=== PATIENT | female | born 1970 | race Caucasian/White ===

== ENCOUNTER 2016-10-31 19:32 | Emergency (ER) | payer OTHER ==
[~2016-10-31] VITALS: Ht 157.5 cm; Wt 102.6 kg
[~2016-10-31 19:32] MED LIST: ALPR-411 PO; CLON1TAB3 PO; ESCI10TA17 PO; ESOM20CA PO; OXYC1TAB3 PO; QUET1TAB30 PO; ROSU40TA PO; SENNTAB23 PO; TRAZ50TA35 PO
[2016-10-31 19:47] VITALS: TEMP 36.8; Ht 157.5 cm; Wt 102.6 kg
[2016-10-31] MEDS ORDERED: TRAZ1TAB5 PO (20:46)
[2016-10-31] MEDS ORDERED: LXP10 PO (20:46)
[2016-10-31] MEDS ORDERED: SRQ25 PO (20:46)
[2016-10-31] MEDS ORDERED: OXYC-164 PO (20:46)
[2016-10-31] MEDS ORDERED: KLN1X PO (20:46)
[2016-10-31] MEDS ORDERED: ALPR-411 PO (20:46)
[2016-10-31] MEDS ORDERED: POLY335019 PO (20:49)
[2016-10-31] MEDS ORDERED: HYDROmorphone INJ 1 MG/ML SYR IV STA ×2 (20:50→22:33)
--- NOTE | 2016-10-31 20:53 | EMERGENCY ROOM VISIT NOTE ---
History First contact with patient: 19:48 Chief Complaint: ABDOMINAL PAIN Stated Complaint: AB PAIN, FALL R HIP PAIN & LEG PAIN Nursing Triage Summary: pt arrived als from home reported abdominal pain for ten days n/d/v pt states she also fell down the steps injuring right hip and lower leg pain pt hx of chronic migrains recent endo treated for infection History of Present Illness The patient is a 46 year old female who presents to the Emergency Room with complaints of severe abdominal pain over the last 10 days, with diarrhea over 10 days as well. She reports she had gastric bypass in the past and since then has been deficient in ferritin and receives IV infusions of it as well. She reports the pain has gotten so bad over the last few days she can barely walk. She denies any vomiting or chest pain. She reports she had an EGD with Dr. Wong in the last few months and was found to have gastric ulcers. She reports she also had an infection found on EGD (likely H. pylori) for which she was on antibiotics for which she finished a few months ago. On further review, she reported she is on a taper program with Dr. Freeman for her narcotic use. She did report sometimes she takes more than she should be for pain, and sometimes take less. She reports overall her program is 4 tablets of oxycodone per day, which should decrease by 1 every month until stopped. Review of Systems See HPI for pertinent positives & negatives. A total of 10 systems reviewed and were otherwise negative. Past Medical/Surgical History Medical Problems: (1) Anemia (2) Anxiety (3) Benign hypertension (4) section (5) Depression (6) Disorder of gallbladder (7) gastric bypass (8) Heart disease (9) History of endoscopy (10) MIGRAINE UNSPECIFIED W/O INTRACT MGRN W/O STATUS MIGRAINOSUS (11) Panic disorder (12) PSVT (paroxysmal supraventricular tachycardia) (13) stomach band (14) stomach problems (15) urinary problems Surgical Problems: (1) History of colonoscopy Family History Patient reports no known family medical history. Social History Smoking Status: Former Smoker Alcohol Use: none Drug Use: none Marital Status: Housing Status: lives with family Occupation Status: unemployed Current/Historical Medications Scheduled Alprazolam (Alprazolam), 0.5 MG PO QD@1200 Clonazepam (Clonazepam), 0.5 MG PO HS Escitalopram Oxalate (Escitalopram Oxalate), 10 MG PO DAILY Esomeprazole Magnesium (Nexium), 40 MG PO QAM Quetiapine Fumarate (Quetiapine Fumarate), 25 MG PO BID Rosuvastatin Calcium (Crestor), 40 MG PO DAILY Scheduled PRN Oxycodone Hcl (Oxycodone Hcl), 10 MG PO Q6H PRN for Pain Polyethylene Glycol 3350 (Miralax), 17 GM PO DAILY PRN for Constipation Trazodone Hcl (Desyrel), 50 MG PO HS PRN for Sleep Allergies Coded Allergies: Sucralfate (Verified Adverse Reaction, Unknown, Eye irritation., 01/31/16) Reported by PT. Physical Exam Vital Signs Date Time Temp Pulse Resp B/P Pulse Ox O2 Delivery O2 Flow Rate FiO2 11/01/16 00:28 78 21 130/68 96 11/01/16 00:03 81 20 95 10/31/16 23:58 114/61 10/31/16 23:49 142/70 10/31/16 23:12 79 21 94 10/31/16 23:07 76 20 94 10/31/16 22:37 90 17 95 10/31/16 22:07 88 20 96 10/31/16 22:02 92 25 96 10/31/16 21:50 89 10/31/16 21:06 99 Room Air 10/31/16 21:04 130/79 10/31/16 19:47 36.8 81 18 132/88 99 Room Air Physical Exam GENERAL: Awake, alert, well-appearing, in no acute distress HENT: Normocephalic, atraumatic. Oropharynx unremarkable. EYES: Normal conjunctiva. Sclera non-icteric. NECK: Supple. No nuchal rigidity. FROM. No JVD. RESPIRATORY: Clear to auscultation. CARDIAC: Regular rate, normal rhythm. Extremities warm and well perfused. Pulses equal. ABDOMEN: Soft, distended. Tenderness diffusely, more in epigastrium. No rebound or guarding. No masses. RECTAL: Deferred. MUSCULOSKELETAL: Chest examination reveals no tenderness. The back is symmetrical on inspection without obvious abnormality. There is no CVA tenderness to palpation. No joint edema. LOWER EXTREMITIES: Calves are equal size bilaterally and non-tender. No edema. No discoloration. NEURO: Normal sensorium. No sensory or motor deficits noted. SKIN: No rash or jaundice noted. Medical Decision & Procedures Laboratory Results 10/31/16 21:00 Red Blood Count 4.27, Mean Corpuscular Volume 83.4, Mean Corpuscular Hemoglobin 27.9, Mean Corpuscular Hemoglobin Concent 33.4, Mean Platelet Volume 10.4, Neutrophils (%) (Auto) 42.1, Lymphocytes (%) (Auto) 46.6, Monocytes (%) (Auto) 9.9, Eosinophils (%) (Auto) 1.0, Basophils (%) (Auto) 0.3, Neutrophils # (Auto) 2.86, Lymphocytes # (Auto) 3.17, Monocytes # (Auto) 0.67, Eosinophils # (Auto) 0.07, Basophils # (Auto) 0.02 10/31/16 21:00 Test 10/31/16 00:00 10/31/16 21:00 Influenza Type A Antigen Neg for Influ A (NEG) Influenza Type B Antigen Neg for Influ B (NEG) White Blood Count 6.80 K/uL (4.8-10.8) Red Blood Count 4.27 M/uL (4.2-5.4) Hemoglobin 11.9 g/dL (12.0-16.0) Hematocrit 35.6 % (37-47) Mean Corpuscular Volume 83.4 fL (80-100) Mean Corpuscular Hemoglobin 27.9 pg (25-34) Mean Corpuscular Hemoglobin Concent 33.4 g/dl (32-36) Platelet Count 245 K/uL (130-400) Mean Platelet Volume 10.4 fL (7.4-10.4) Neutrophils (%) (Auto) 42.1 % Lymphocytes (%) (Auto) 46.6 % Monocytes (%) (Auto) 9.9 % Eosinophils (%) (Auto) 1.0 % Basophils (%) (Auto) 0.3 % Neutrophils # (Auto) 2.86 K/uL (1.4-6.5) Lymphocytes # (Auto) 3.17 K/uL (1.2-3.4) Monocytes # (Auto) 0.67 K/uL (0.11-0.59) Eosinophils # (Auto) 0.07 K/uL (0-0.5) Basophils # (Auto) 0.02 K/uL (0-0.2) RDW Standard Deviation 50.5 fL (36.4-46.3) RDW Coefficient of Variation 16.7 % (11.5-14.5) Immature Granulocyte % (Auto) 0.1 % Immature Granulocyte # (Auto) 0.01 K/uL (0.00-0.02) Anion Gap 9.0 mmol/L (3-11) Est Creatinine Clear Calc Drug Dose 113.1 ml/min Estimated GFR () 120.1 Estimated GFR (Non- 103.7 BUN/Creatinine Ratio 10.0 (10-20) Calcium Level 8.8 mg/dl (8.5-10.1) Phosphorus Level 2.9 mg/dl (2.5-4.9) Magnesium Level 2.2 mg/dl (1.8-2.4) Total Bilirubin 0.3 mg/dl (0.2-1) Aspartate Amino Transf (AST/SGOT) 13 U/L (15-37) Alanine Aminotransferase (ALT/SGPT) 14 U/L (12-78) Alkaline Phosphatase 54 U/L (45-117) Total Protein 7.3 gm/dl (6.4-8.2) Albumin 3.3 gm/dl (3.4-5.0) Globulin 4.0 gm/dl (2.5-4.0) Albumin/Globulin Ratio 0.8 (0.9-2) Lipase 105 U/L (73-393) Thyroid Stimulating Hormone (TSH) 2.660 uIu/ml (0.300-4.500) Medications Administered Medications (Trade) Dose Ordered Sig/Beth Route Start Time Stop Time Status Last Admin Dose Admin Hydromorphone HCl (Dilaudid Inj) 1 mg NOW STAT IV 10/31/16 20:50 10/31/16 20:51 DC 10/31/16 21:02 1 MG Hydromorphone HCl (Dilaudid Inj) 1 mg NOW STAT IV 10/31/16 22:33 10/31/16 22:34 DC 10/31/16 22:[address] ABDOMEN PELVIS IMPRESSION: 1. 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 There is mild thickening and surrounding fat stranding related to the gastrojejunostomy anastomosis. Consider follow-up endoscopy for further evaluation. 2. Mild mesenteric lymphadenopathy which could be reactive. 3. Bilateral lower lobe consolidation which may represent atelectasis. 4. A 2 cm left ovarian lesion/cyst. This is similar to the prior study. If the patient is postmenopausal considered to a 2 to 3 month pelvic ultrasound follow-up to ensure resolution. Electronically signed by: Fred Zamora M.D. 11/01/2016 7:30 AM ED Course 1951: I evaluated the patient in room B5. v I then discussed my findings with the attending. The patient was adamant about receiving pain medications prior to any investigations. She was given 1mg of IV dilaudid eventually. 2102: The patient requested a further 2mg IV dose of dilaudid. This was not given. She drank contrast in preparation for CT scan. 2232: She reported severe pain. My attending ordered Dilaudid Inj 1 mg IV 22:55: I signed out the patient case to Dr Foley, as my shift had ended. Please refer to his note for the final disposition. On review, the patient was discharged in good condition that night. Medical Decision 46 yo F s/p gastric bypass surgery with chronic abdominal pain and considerable opioid use - differential includes: bowel obstruction, appendicitis, lymphadenitis, ovarian torsion, or constipation. The patient had an IV placed and labs drawn. Her labs were unremarkable. She complained of severe diffuse pain the entire time she was in the hospital, and reported she usually takes higher doses of narcotics than what we were giving her. I told her multiples times opioids are dangerous in higher amounts and I did not agree with giving her the doses requested. Her CT scan was also unremarkable. She was discharged home in good condition. She should follow up with her PCP Dr. Valdes and Dr. Freeman to review her opioid use. [place] Drug [place] Search Results: patient reviewed within database Drug Monitoring Findings: Patient has received multiple prescriptions from 7 prescribers. Most recently received 60 tablets of oxycodone 10mg 9 days ago Impression Primary Impression: Abdominal pain Departure Information Referrals Cal Valdes DO (PCP) Patient Instructions My [facility] [address] Resident Tracking Resident Involvement: Resident Care Provided Care Provided: Adult ED
[2016-10-31 21:06] VITALS: O2SAT 99
[2016-10-31 21:19] LABS: BASO % 0.3 %; BASO ABS # 0.02 K/uL (0-0.2); COMPLETE YES; HEMATOCRIT 35.6 % (37-47); IG% 0.1 %; LYMPH % 46.6 %; LYMPH ABS # 3.17 K/uL (1.2-3.4); MEAN CELL VOLUME 83.4 fL (80-100); MEAN CORPUSCULAR HEMOGLOBIN 27.9 pg (25-34); MEAN CORPUSCULAR HGB CONC 33.4 g/dl (32-36); MEAN PLATELET VOLUME 10.4 fL (7.4-10.4); MONO % 9.9 %; NEUT % 42.1 %; PLATELET COUNT 245 K/uL (130-400); RED BLOOD COUNT 4.27 M/uL (4.2-5.4)
[2016-10-31 21:39] LABS: CALCIUM 8.8 mg/dl (8.5-10.1); CREATININE 0.69 mg/dl (0.60-1.20); MAGNESIUM 2.2 mg/dl (1.8-2.4); POTASSIUM 3.9 mmol/L (3.5-5.1)
[2016-10-31 21:49] LABS: ALB/GLOB RATIO 0.8 (0.9-2); PHOSPHORUS 2.9 mg/dl (2.5-4.9); THYROID STIMULATING HORMONE 2.66 uIu/ml (0.300-4.500)
[2016-10-31] MEDS ORDERED: OPTIRAY 320 IV PRN (22:15)
[2016-11-01 00:28] VITALS: BP 130/68; PULSE 78; O2SAT 96
--- NOTE | 2016-11-01 00:35 | EMERGENCY ROOM VISIT NOTE ---
History Report prepared by Jerri: Patricia Coleman Under the Supervision of: Dr. Wei Gore M.D. First contact with patient: 19:48 Chief Complaint: ABDOMINAL PAIN Stated Complaint: AB PAIN, FALL R HIP PAIN & LEG PAIN Nursing Triage Summary: pt arrived als from home reported abdominal pain for ten days n/d/v pt states she also fell down the steps injuring right hip and lower leg pain pt hx of chronic migrains recent endo treated for infection History of Present Illness The patient is a 46 year old female who presents to the Emergency Room with complaints of worsening central upper abdominal pain that started 10 days ago. The patient came to the ED via ambulance. She tried to relieve the pain with oxycodone and Tylenol, but they offered her minimal relief. She is also experiencing diarrhea. The patient had an EGD done with Dr. Ureña recently, which revealed an ulcer. She was put on antibiotics for an unspecified infection. Additionally, the patient states that she slipped on the steps and hit her right leg. She did not experience LOC. The patient adds that she has a history of ferritin deficiency, so she gets transfusions for that. The patient also has a history of gastric bypass. Pt denies LOC, headache, fevers, chills , diaphoresis, visual changes, neck pain, chest pain, breathing difficulties, nausea, vomiting, back pain, melena, hematochezia, urinary symptoms, numbness, weakness, lymphadenopathy, rash, or other complaints. Source of History: patient Onset: 10 days ago Position: abdomen (central upper) Timing: worsening Associated Symptoms: + diarrhea Note: right leg pain Review of Systems See HPI for pertinent positives and negatives. A total of ten systems were reviewed and were otherwise negative. Past Medical & Surgical Medical Problems: (1) Anemia (2) Anxiety (3) Benign hypertension (4) section (5) Depression (6) Disorder of gallbladder (7) gastric bypass (8) Heart disease (9) History of endoscopy (10) MIGRAINE UNSPECIFIED W/O INTRACT MGRN W/O STATUS MIGRAINOSUS (11) Panic disorder (12) PSVT (paroxysmal supraventricular tachycardia) (13) stomach band (14) stomach problems (15) urinary problems Surgical Problems: (1) History of colonoscopy Family History Patient reports no known family medical history. Social History Smoking Status: Former Smoker Alcohol Use: none Drug Use: none Marital Status: Housing Status: lives with family Occupation Status: unemployed Current/Historical Medications Scheduled Alprazolam (Alprazolam), 0.5 MG PO QD@1200 Clonazepam (Clonazepam), 0.5 MG PO HS Escitalopram Oxalate (Escitalopram Oxalate), 10 MG PO DAILY Esomeprazole Magnesium (Nexium), 40 MG PO QAM Quetiapine Fumarate (Quetiapine Fumarate), 25 MG PO BID Rosuvastatin Calcium (Crestor), 40 MG PO DAILY Scheduled PRN Oxycodone Hcl (Oxycodone Hcl), 10 MG PO Q6H PRN for Pain Polyethylene Glycol 3350 (Miralax), 17 GM PO DAILY PRN for Constipation Trazodone Hcl (Desyrel), 50 MG PO HS PRN for Sleep Allergies Coded Allergies: Sucralfate (Verified Adverse Reaction, Unknown, Eye irritation., 01/31/16) Reported by PT. Physical Exam Vital Signs Date Time Temp Pulse Resp B/P Pulse Ox O2 Delivery O2 Flow Rate FiO2 10/31/16 23:58 114/61 10/31/16 23:49 142/70 10/31/16 23:12 79 21 94 10/31/16 23:07 76 20 94 10/31/16 22:37 90 17 95 10/31/16 22:07 88 20 96 10/31/16 22:02 92 25 96 10/31/16 21:50 89 10/31/16 21:06 99 Room Air 10/31/16 21:04 130/79 10/31/16 19:47 36.8 81 18 132/88 99 Room Air Physical Exam GENERAL: Awake, alert, tired-appearing, in no distress HENT: Normocephalic, atraumatic. Oropharynx unremarkable. EYES: Normal conjunctiva. Sclera non-icteric. NECK: Supple. No nuchal rigidity. FROM. No JVD. RESPIRATORY: Clear to auscultation. CARDIAC: Regular rate, normal rhythm. Extremities warm and well perfused. Pulses equal. ABDOMEN: Soft, non-distended. Midabdominal tenderness to palpation, mostly in the epigastric region with guarding. No rebound. No masses. RECTAL: Deferred. MUSCULOSKELETAL: Chest examination reveals no tenderness. The back is symmetrical on inspection without obvious abnormality. There is no CVA tenderness to palpation. No joint edema. LOWER EXTREMITIES: Calves are equal size bilaterally. Mild right lower leg tenderness. No edema. No discoloration. NEURO: Normal sensorium. No sensory or motor deficits noted. SKIN: No rash or jaundice noted. Medical Decision & Procedures Laboratory Results 10/31/16 21:00 Red Blood Count 4.27, Mean Corpuscular Volume 83.4, Mean Corpuscular Hemoglobin 27.9, Mean Corpuscular Hemoglobin Concent 33.4, Mean Platelet Volume 10.4, Neutrophils (%) (Auto) 42.1, Lymphocytes (%) (Auto) 46.6, Monocytes (%) (Auto) 9.9, Eosinophils (%) (Auto) 1.0, Basophils (%) (Auto) 0.3, Neutrophils # (Auto) 2.86, Lymphocytes # (Auto) 3.17, Monocytes # (Auto) 0.67, Eosinophils # (Auto) 0.07, Basophils # (Auto) 0.02 10/31/16 21:00 Test 10/31/16 00:00 10/31/16 21:00 Influenza Type A Antigen Neg for Influ A (NEG) Influenza Type B Antigen Neg for Influ B (NEG) White Blood Count 6.80 K/uL (4.8-10.8) Red Blood Count 4.27 M/uL (4.2-5.4) Hemoglobin 11.9 g/dL (12.0-16.0) Hematocrit 35.6 % (37-47) Mean Corpuscular Volume 83.4 fL (80-100) Mean Corpuscular Hemoglobin 27.9 pg (25-34) Mean Corpuscular Hemoglobin Concent 33.4 g/dl (32-36) Platelet Count 245 K/uL (130-400) Mean Platelet Volume 10.4 fL (7.4-10.4) Neutrophils (%) (Auto) 42.1 % Lymphocytes (%) (Auto) 46.6 % Monocytes (%) (Auto) 9.9 % Eosinophils (%) (Auto) 1.0 % Basophils (%) (Auto) 0.3 % Neutrophils # (Auto) 2.86 K/uL (1.4-6.5) Lymphocytes # (Auto) 3.17 K/uL (1.2-3.4) Monocytes # (Auto) 0.67 K/uL (0.11-0.59) Eosinophils # (Auto) 0.07 K/uL (0-0.5) Basophils # (Auto) 0.02 K/uL (0-0.2) RDW Standard Deviation 50.5 fL (36.4-46.3) RDW Coefficient of Variation 16.7 % (11.5-14.5) Immature Granulocyte % (Auto) 0.1 % Immature Granulocyte # (Auto) 0.01 K/uL (0.00-0.02) Anion Gap 9.0 mmol/L (3-11) Est Creatinine Clear Calc Drug Dose 113.1 ml/min Estimated GFR () 120.1 Estimated GFR (Non- 103.7 BUN/Creatinine Ratio 10.0 (10-20) Calcium Level 8.8 mg/dl (8.5-10.1) Phosphorus Level 2.9 mg/dl (2.5-4.9) Magnesium Level 2.2 mg/dl (1.8-2.4) Total Bilirubin 0.3 mg/dl (0.2-1) Aspartate Amino Transf (AST/SGOT) 13 U/L (15-37) Alanine Aminotransferase (ALT/SGPT) 14 U/L (12-78) Alkaline Phosphatase 54 U/L (45-117) Total Protein 7.3 gm/dl (6.4-8.2) Albumin 3.3 gm/dl (3.4-5.0) Globulin 4.0 gm/dl (2.5-4.0) Albumin/Globulin Ratio 0.8 (0.9-2) Lipase 105 U/L (73-393) Thyroid Stimulating Hormone (TSH) 2.660 uIu/ml (0.300-4.500) Laboratory results reviewed by me Medications Administered Medications (Trade) Dose Ordered Sig/Beth Route Start Time Stop Time Status Last Admin Dose Admin Hydromorphone HCl (Dilaudid Inj) 1 mg NOW STAT IV 10/31/16 20:50 10/31/16 20:51 DC 10/31/16 21:02 1 MG Hydromorphone HCl (Dilaudid Inj) 1 mg NOW STAT IV 10/31/16 22:33 10/31/16 22:34 DC 10/31/16 22:38 1 MG ECG Indication: abdominal pain Rate (beats per minute): 82 Rhythm: normal sinus Findings: no acute ischemic change, no ectopy ED Course 1951: The patient was evaluated by the medical care manager, Dr. Valerie Skinner. We discussed her findings and potential treatment plans. 2102: The patient was evaluated in room B5. A complete history and physical exam was performed. 2231: The nurse informed me that the patient wants pain medicine. 2232: Ordered Dilaudid Inj 1 mg IV Medical Decision Triage Nursing notes reviewed. The patient's presentation and history were concerning for abdominal pain. Etiologies such as complication of gastric bypass, appendicitis, diverticulitis , obstruction, inflammatory bowel disease, renal colic, PUD, biliary pathology , pancreatitis, mesenteric ischemia, aortic pathology, infections, genitourinary , UTI, perforated viscus, as well as others were entertained. The patient was evaluated. She has epigastric pain. She repeatedly requested narcotic analgesia. She requested high-dose Dilaudid. The patient does have multiple prescriptions for controlled substances noted the prescription drug monitoring program. She states that she is on a program to taper from her narcotics from her pain management doctor. The patient was given 1 mg of Dilaudid 2 spaced out over several hours while she was prepping for CT imaging. She did request 2 mg but this was not done. On further discussion with Dr. Valerie Skinner the patient did admit to occasionally taking more than her pain management prescribed taper. She clearly has a significant tolerance to narcotics. Her CBC, chemistry panel, LFTs, lipase, were unremarkable. ECG was unremarkable. CT imaging was performed. This does not reveal any significant abnormalities of her gastric bypass. Mesenteric adenitis was suggested. The patient has had some diarrhea along with this discomfort. Her issues may be related to the mesenteric adenitis. I did ask for her to increase her Nexium to 40 mg twice daily. She is already using Gaviscon. The patient did note using some ibuprofen when she had dental work done. I strongly advised patient not to use any NSAIDs given her gastric bypass status. The patient is doing much better at this point time. She will follow-up closely with her GI specialist, Dr. Ureña. The patient did notify family history of lymphoma. Her blood work was unremarkable however I will have her follow-up with her oncologist, Dr. Barrera. If She worsens in any way she will be back. I gave my usual and customary discussion regarding this issue. The patient was seen and examined with Dr. Valerie Skinner, resident physician. We discussed the case and treatments ordered, reviewed the results, and determine the disposition. Please refer to the resident's note for additional details. I have been directly involved with the management and disposition as well as independently evaluated the patient as documented in this note. By the evaluation outlined above other emergent etiologies such as those listed in the differential, as well as others, were deemed relatively unlikely. The patient and were informed about the findings as listed above. All questions were answered and they were pleased with the treatment. Return instructions were outlined and the patient was discharged in stable condition. The patient was referred to her for follow-up this week for a recheck of the current condition. The chart was completed utilizing [employer] Speech voice recognition software. Grammatical errors, random word insertions, pronoun errors, and incomplete sentences are an occasional consequence of this system due to software limitations, ambient noise, and hardware issues. Any formal questions or concerns about the content, text, or information contained within the body of this dictation should be directly addressed to the physician for clarification. [place] Results: patient reviewed within database, see additional documentation Drug Monitoring Findings: Patient has received multiple scrips and numerous prescriptions over the last 12 months. Impression Primary Impression: Epigastric abdominal pain Additional Impression: Mesenteric adenitis Scribe Attestation The scribe's documentation has been prepared under my direction and personally reviewed by me in its entirety. I confirm that the note above accurately reflects all work, treatment, procedures, and medical decision making performed by me. Departure Information Dispostion Home / Self-Care Referrals Cal Valdes DO (PCP) Patient Instructions My [facility] Additional Instructions Diagnoses: 1. Mesenteric adenitis 2. Epigastric abdominal pain DO NOT drive, drink alcohol, operate machinery, or perform dangerous activities today. You were given medications in the ER that can affect your ability to safely function or operate a vehicle. Continue current medications. Increase Nexium to 40 mg twice daily until directed otherwise by Dr. ureña. Acetaminophen(Tylenol) may be used for fever or pain. Use 1000mg every six hours as needed. Avoid using more than 4000mg in a 24 hour period. Rest and drink plenty of fluids as tolerated. Slow sips of water or sports drinks are recommended instead of large amounts all at once. Continue current medications. Once your stomach is settled start with a clear liquid diet (jello, soup broth, etc.) and then advance as tolerated. You should avoid full, heavy meals for about 24 hrs from the time your symptoms resolved. Return to the ER immediately for worsening or persistent abdominal pain, vomiting, fevers, chest pains, difficulty breathing, black or bloody stools, worsening of your condition, or as needed. Follow up with Dr. ureña and Dr. Barrera for a recheck of your current condition. Problem Qualifiers
--- NOTE | 2016-11-01 07:31 | DIAGNOSTIC IMAGING REPORT ---
ABDOMEN AND PELVIS CT WITH IV AND ORAL CONTRAST CT DOSE: 975.75 mGy.cm HISTORY: Hx gastric bypass, epigastric / abdominal pain TECHNIQUE: Multiaxial CT images of the abdomen and pelvis were performed following the use of intravenous and oral contrast. COMPARISON STUDY: Abdomen and pelvis CT 06/17/2014. FINDINGS: Bilateral lower lobe streaky posterior densities. Evidence for prior gastric bypass. There is contrast within the excluded portion of the stomach. Mild thickening and minimal surrounding inflammatory change at the gastrojejunostomy anastomosis. Mildly enlarged central mesenteric lymph nodes. 2 cm hypodense lesion/cyst within the left ovary. This is similar to the prior study. The bladder, uterus, and right ovary are unremarkable. No evidence for bowel obstruction. Normal appendix. The liver, gallbladder, kidneys, spleen, and pancreas are unremarkable. IMPRESSION: 1. 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 There is mild thickening and surrounding fat stranding related to the gastrojejunostomy anastomosis. Consider follow-up endoscopy for further evaluation. 2. Mild mesenteric lymphadenopathy which could be reactive. 3. Bilateral lower lobe consolidation which may represent atelectasis. 4. A 2 cm left ovarian lesion/cyst. This is similar to the prior study. If the patient is postmenopausal considered to a 2 to 3 month pelvic ultrasound follow-up to ensure resolution. Electronically signed by: Fred Zamora M.D. 11/01/2016 7:30 AM Dictated Date/Time: 11/01/2016 7:23 AM
[2016-11-08] MEDS ORDERED: ESCI10TA17 PO (11:58)
[2016-11-08] MEDS ORDERED: CLON0.5T3 PO (11:58)
[2016-11-08] MEDS ORDERED: ALPR-411 PO (11:58)
[2016-11-08] MEDS ORDERED: ALPR1TAB3 PO (11:58)
[2016-11-08] MEDS ORDERED: QUET1TAB32 PO (11:58)
[2016-11-08] MEDS ORDERED: QUET1TAB30 PO (11:58)
[2016-11-08] MEDS ORDERED: TRAZ50TA35 PO ×2 (11:58)
[2016-11-08] MEDS ORDERED: OXYC1TAB3 PO (11:59)
[2016-11-25] MEDS ORDERED: ESOM20CA PO (11:58)
[2016-11-25] MEDS ORDERED: ROSU20TA PO (11:58)
[2017-02-26] MEDS ORDERED: ACET-1256 PO (06:47)
[2017-02-26] MEDS ORDERED: PRT/40 PO (18:53)
== END 2016-11-01 00:45 | disposition home or self-care (01) ==
LOC: EDBD 19:32 → C.EDB 19:34
DX: R10.13 Epigastric pain (principal); I88.0 Nonspecific mesenteric lymphadenitis; Z98.84 Bariatric surgery status; D64.9 Anemia, unspecified; F41.9 Anxiety disorder, unspecified; I10 Essential (primary) hypertension; I51.9 Heart disease, unspecified; G43.909 Migraine, unspecified, not intractable, without status migrainosus; I47.1 Supraventricular tachycardia; Z87.891 Personal history of nicotine dependence; Z79.899 Other long term (current) drug therapy

== ENCOUNTER 2016-11-08 16:17 | Emergency (ER) | payer OTHER ==
[~2016-11-08] VITALS: Ht 162.6 cm; Wt 100.2 kg
[~2016-11-08 16:17] MED LIST changes: +ALPR1TAB3 PO; +CLON0.5T3 PO; -CLON1TAB3 PO; +KLN1X PO; +LXP10 PO; +OXYC-164 PO; +POLY335019 PO; +QUET1TAB32 PO; -SENNTAB23 PO; +SRQ25 PO; +TRAZ1TAB5 PO
[2016-11-08 16:20] VITALS: TEMP 37.2; Ht 162.6 cm; Wt 100.2 kg
[2016-11-08] MEDS ORDERED: SODIUM CHLORIDE 0.9% 1000ML 1,000 ML IV STA (16:50)
[2016-11-08] MEDS ORDERED: HYDROmorphone INJ 1 MG/ML SYR IV STA ×2 (16:50→20:56)
[2016-11-08] MEDS ORDERED: ONDANSETRON INJ 2 MG/ML 2 ML VIAL IV STA (16:50)
[2016-11-08] MEDS ORDERED: GI COCKTAIL PO ONE (17:00)
[2016-11-08] MEDS ORDERED: ALUMINUM/MAGNESIUM SUSP 30 ML UDC ONE (17:18)
[2016-11-08] MEDS ORDERED: LIDOCAINE HCL 2% VISC SOLN 20 ML UDC ONE (17:18)
[2016-11-08 20:18] LABS: HEMATOCRIT 33.7 % (37-47); MEAN CELL VOLUME 82.4 fL (80-100); MEAN CORPUSCULAR HEMOGLOBIN 27.6 pg (25-34); MEAN CORPUSCULAR HGB CONC 33.5 g/dl (32-36); MEAN PLATELET VOLUME 10.7 fL (7.4-10.4); PLATELET COUNT 261 K/uL (130-400); RED BLOOD COUNT 4.09 M/uL (4.2-5.4); WHITE BLOOD COUNT 5.19 K/uL (4.8-10.8)
[2016-11-08 20:35] LABS: CALCIUM 8.2 mg/dl (8.5-10.1); CREATININE 0.66 mg/dl (0.60-1.20); POTASSIUM 3.7 mmol/L (3.5-5.1)
[2016-11-08 20:37] LABS: ALB/GLOB RATIO 0.9 (0.9-2)
[2016-11-08 20:46] LABS: BASO % 0.4 %; BASO ABS # 0.02 K/uL (0-0.2); COMPLETE YES; EOS % 1.2 %; LYMPH % 63.6 %; MONO % 7.9 %; NEUT % 26.9 %
--- NOTE | 2016-11-08 20:58 | EMERGENCY ROOM VISIT NOTE ---
History First contact with patient: 16:25 Chief Complaint: ABDOMINAL PAIN Stated Complaint: STOMACH PAIN Nursing Triage Summary: pt states she has had abd pain x3 weeks. denies vomiting and urinary symptoms. states she "sometimes" has diarrhea. states "they gave me zofran so I don't vomit." states she is scheduled for an endoscopy tomorrow. upon examination pt alert and oriented x4. pt states "I am having a lot of pain." requesting "second shot of diludid. last time they gave me two." rates pain 9/10 mid abdomen. History of Present Illness The patient is a 46 year old female who presents to the Emergency Department by private vehicle with her for evaluation of her epigastric abdominal pain and migraine. The patient has a long-standing history of each of these situations. The patient has a scheduled upper endoscopy tomorrow with Dr. ureña. 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 She has no new symptoms. There is been no fevers or chills. She has been nauseated without vomiting. She denies any blurry vision, no vision, slurred speech, facial droop, unilateral weakness/numbness, chest pain, palpitations, hematochezia, melena, hematuria, or dysuria. She rates her current discomfort as 8/10. Review of Systems A complete 10-point Review of Systems was discussed with the patient, with pertinent positives and negatives listed in the History of Present Illness. All remaining Review of Systems questions can be considered negative unless otherwise specified. Past Medical/Surgical History Medical Problems: (1) Anemia (2) Anxiety (3) Benign hypertension (4) section (5) Depression (6) Disorder of gallbladder (7) gastric bypass (8) Heart disease (9) History of endoscopy (10) MIGRAINE UNSPECIFIED W/O INTRACT MGRN W/O STATUS MIGRAINOSUS (11) Panic disorder (12) PSVT (paroxysmal supraventricular tachycardia) (13) stomach band (14) stomach problems (15) urinary problems Surgical Problems: (1) History of colonoscopy Family History Patient reports no known family medical history. Social History Smoking Status: Current Every Day Smoker Alcohol Use: none Drug Use: none Marital Status: Housing Status: lives with family Occupation Status: unemployed Current/Historical Medications Scheduled Alprazolam (Xanax), 1 MG PO QAM Alprazolam (Xanax), 0.5 MG PO DAILY AT NOON Clonazepam (Klonopin), 0.5 MG PO HS Escitalopram (Lexapro), 10 MG PO QAM Esomeprazole Magnesium (Nexium), 20 MG PO BID Quetiapine Fumarate (Seroquel), 25 MG PO DAILY AFTERNOON Quetiapine Fumarate (Seroquel), 50 MG PO QAM Rosuvastatin Calcium (Crestor), 20 MG PO HS Trazodone Hcl (Trazodone), 50 MG PO HS Scheduled PRN Oxycodone Ir (Roxicodone Ir), 5-20 MG PO Q6H PRN for Pain Trazodone Hcl (Trazodone), 0.25 TAB PO DAILY PRN for PANIC ATTACK Allergies Coded Allergies: Sucralfate (Verified Adverse Reaction, Unknown, Eye irritation., 11/09/16) Reported by PT. Physical Exam Vital Signs Date Time Temp Pulse Resp B/P Pulse Ox O2 Delivery O2 Flow Rate FiO2 11/08/16 21:04 61 18 120/87 95 11/08/16 19:12 67 18 132/69 95 Room Air 11/08/16 16:20 37.2 78 20 135/91 99 Room Air Pain Rating (0-10): 8 Physical Exam VITAL SIGNS - Vital signs and nursing notes were reviewed. GENERAL - 46-year-old female appearing her stated age who is in no acute distress. Communicates well with provider and answers questions appropriately. HEAD - NC/AT. EYES - PERRL with EOMI bilaterally. Sclera anicteric. Palpebral conjunctiva pink and moist with no injection noted. EARS - No deformities of external structures noted on gross examination bilaterally. No pain elicited with palpation of the tragus bilaterally. External auditory canals without discharge or otorrhea. Tympanic membranes pearly maddox without retraction or bulging. NOSE - Midline and without cyanosis. No epistaxis or purulent drainage noted. Septum midline without deviation or septal hematoma noted. MOUTH/OROPHARYNX - Without perioral cyanosis. Buccal mucosa pink and moist and without leukoplakia. Tongue midline with equal elevation of palate bilaterally. No tonsillar hypertrophy, erythema, or exudates noted. Good dentition noted. NECK - Neck with FROM. Supple to palpation. No nuchal rigidity. LUNGS - Chest wall symmetric without accessory muscle use, intercostals retractions, or central cyanosis. Normal vesicular breath sounds CTA B/L. No wheezes, rales, or rhonchi appreciated. CARDIAC - RRR with S1/S2. No murmur, rubs, or gallops appreciated. ABDOMEN - Abdominal contour obese and without pulsations or visible masses. BS normoactive all four quadrants. Mild tenderness to palpation appreciated in the epigastrium. No guarding. no Rebound Tenderness. Negative Rovsing's. Negative Ye's. No palpable masses, hepatosplenomegaly, or ascites noted. EXTREMITIES - No clubbing or peripheral cyanosis. No pretibial edema present. +3 /5 radial and dorsalis pedis pulses palpated throughout. PSYCH - A&Ox3 and cooperates fully with examiner. Pt is very pleasant and interacts well with examiner. Medical Decision & Procedures Laboratory Results 11/08/16 20:06 Red Blood Count 4.09, Mean Corpuscular Volume 82.4, Mean Corpuscular Hemoglobin 27.6, Mean Corpuscular Hemoglobin Concent 33.5, Mean Platelet Volume 10.7, Neutrophils (%) (Auto) 26.9, Lymphocytes (%) (Auto) 63.6, Monocytes (%) (Auto) 7.9, Eosinophils (%) (Auto) 1.2, Basophils (%) (Auto) 0.4, Neutrophils # (Auto) 1.40, Lymphocytes # (Auto) 3.30, Monocytes # (Auto) 0.41, Eosinophils # (Auto) 0.06, Basophils # (Auto) 0.02 11/08/16 20:06 Test 11/08/16 20:06 White Blood Count 5.19 K/uL (4.8-10.8) Red Blood Count 4.09 M/uL (4.2-5.4) Hemoglobin 11.3 g/dL (12.0-16.0) Hematocrit 33.7 % (37-47) Mean Corpuscular Volume 82.4 fL (80-100) Mean Corpuscular Hemoglobin 27.6 pg (25-34) Mean Corpuscular Hemoglobin Concent 33.5 g/dl (32-36) Platelet Count 261 K/uL (130-400) Mean Platelet Volume 10.7 fL (7.4-10.4) Neutrophils (%) (Auto) 26.9 % Lymphocytes (%) (Auto) 63.6 % Monocytes (%) (Auto) 7.9 % Eosinophils (%) (Auto) 1.2 % Basophils (%) (Auto) 0.4 % Neutrophils # (Auto) 1.40 K/uL (1.4-6.5) Lymphocytes # (Auto) 3.30 K/uL (1.2-3.4) Monocytes # (Auto) 0.41 K/uL (0.11-0.59) Eosinophils # (Auto) 0.06 K/uL (0-0.5) Basophils # (Auto) 0.02 K/uL (0-0.2) RDW Standard Deviation 51.0 fL (36.4-46.3) RDW Coefficient of Variation 16.8 % (11.5-14.5) Immature Granulocyte % (Auto) 0.0 % Immature Granulocyte # (Auto) 0.00 K/uL (0.00-0.02) Red Blood Cell Morphology Unremarkable Anion Gap 7.0 mmol/L (3-11) Est Creatinine Clear Calc Drug Dose 121.3 ml/min Estimated GFR () 121.9 Estimated GFR (Non- 105.2 BUN/Creatinine Ratio 8.0 (10-20) Calcium Level 8.2 mg/dl (8.5-10.1) Total Bilirubin 0.3 mg/dl (0.2-1) Aspartate Amino Transf (AST/SGOT) 11 U/L (15-37) Alanine Aminotransferase (ALT/SGPT) 12 U/L (12-78) Alkaline Phosphatase 48 U/L (45-117) Total Protein 6.7 gm/dl (6.4-8.2) Albumin 3.1 gm/dl (3.4-5.0) Globulin 3.6 gm/dl (2.5-4.0) Albumin/Globulin Ratio 0.9 (0.9-2) Medications Administered Medications (Trade) Dose Ordered Sig/Beth Route Start Time Stop Time Status Last Admin Dose Admin Sodium Chloride (Nss 1000ml) 1,000 ml @ 999 mls/hr Q1H1M STAT IV 11/08/16 16:50 11/08/16 17:50 DC 11/08/16 18:10 999 MLS/HR Ondansetron HCl (Zofran Inj) 4 mg NOW STAT IV 11/08/16 16:50 11/08/16 16:53 DC 11/08/16 18:07 4 MG Hydromorphone HCl (Dilaudid Inj) 1 mg NOW STAT IV 11/08/16 16:50 11/08/16 16:53 DC 11/08/16 18:09 1 MG Lidocaine HCl (Viscous Lidocaine 2% Soln) 20 ml STK-MED ONCE .ROUTE 11/08/16 17:18 11/08/16 17:20 DC 11/08/16 17:22 20 ML Al Hydroxide/Mg Hydroxide (Maalox Susp) 30 ml STK-MED ONCE .ROUTE 11/08/16 17:18 11/08/16 17:20 DC 11/08/16 17:23 30 ML Hydromorphone HCl (Dilaudid Inj) 1 mg NOW STAT IV 11/08/16 20:56 11/08/16 20:57 DC 11/08/16 21:03 1 MG ED Course Patient was seen and evaluated by myself. Previous emergency department visit notes were reviewed. Labs were drawn, saline lock in place. The patient was hydrated with a 1000 mL normal saline bolus. She received 1 mg Dilaudid and 4 mg Zofran intravenously for symptoms. She received GI cocktail. Patient was reevaluated and reports feeling somewhat better. Laboratory results demonstrate no acute leukocytosis, worrisome anemia, or bandemia. The patient has no significant electrolyte abnormalities. She was treated with an additional 1 mg Dilaudid and discharged home with the intent for close follow- up tomorrow with her scheduled outpatient upper endoscopy. Medical Decision Given the patient's presentation and stated complaint, I did elect to perform the above-mentioned workup. The patient does have a history of chronic pain issues. 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 She is scheduled for an upper endoscopy tomorrow. Her abdomen is soft and nontender to palpation. I do not feel that imaging studies are necessary at this point. The patient does appear to be in discomfort. Her pain was adequately controlled the emergency setting. Her labs are otherwise unremarkable. She has a scheduled upper endoscopy tomorrow. She will keep this appointment with Dr. ureña. She will return to the emergency department in the setting of any changing or worsening symptoms. Patient discharged home afebrile and in good condition. In the evaluation and treatment of this patient, the following differential diagnoses were considered: Malingering, somatization, gastritis, duodenitis, peptic ulcer disease, bowel perforation, migraine, ACS, IL, intracranial abnormalities, subdural hematoma, subarachnoid hemorrhage, amongst others. Impression Primary Impression: Epigastric abdominal pain Departure Information Dispostion Home / Self-Care Condition GOOD Referrals Cal Valdes DO (PCP) Patient Instructions My [facility] Additional Instructions You have been treated in the Emergency Department your Abdominal Pain. Keep your follow-up appointment for your endoscopy as scheduled. For pain control, you can use the following [id number] medicines (if >12 yo): - Regular strength (325mg/tab) Tylenol (acetaminophen) 2 tabs every 4-6 hours as needed. Do not exceed 12 tablets in a 24 hour period. Avoid taking more than 4 grams (4000 mg) of Tylenol per day. This includes any other sources of acetaminophen you may take on a regular basis. - Regular strength (200 mg/tab) Advil (ibuprofen) 1-2 tabs every 4-6 hours as needed. Do not exceed a dose of 3200 mg per day. Drink plenty of water and stay well hydrated. As with any trip to the Emergency Department, you should follow-up with your Primary Care Provider from today's visit. Return to the emergency department if your symptoms persist despite treatment plan outlined above or if the following symptoms occur: increased fevers, chills , worsening nausea/vomiting, blood in your stool or urine.
[2016-11-08 21:04] VITALS: BP 120/87; PULSE 61; O2SAT 95
[2016-11-25] MEDS ORDERED: ESOM20CA PO (11:58)
[2016-11-25] MEDS ORDERED: ROSU20TA PO (11:58)
[2017-02-26] MEDS ORDERED: ACET-1256 PO (06:47)
[2017-02-26] MEDS ORDERED: PRT/40 PO (18:53)
== END 2016-11-08 21:04 | disposition home or self-care (01) ==
LOC: C.EDB 16:18 → C.EDC 21:04
DX: R10.13 Epigastric pain (principal); Z98.84 Bariatric surgery status; F41.9 Anxiety disorder, unspecified; I10 Essential (primary) hypertension; F32.9 Major depressive disorder, single episode, unspecified; I51.9 Heart disease, unspecified; G43.909 Migraine, unspecified, not intractable, without status migrainosus; I47.1 Supraventricular tachycardia; F17.210 Nicotine dependence, cigarettes, uncomplicated; Z79.899 Other long term (current) drug therapy

== ENCOUNTER → 2016-11-09 | Day surgery (SDC) | payer OTHER ==
[2016-11-08 11:59] VITALS: BMI 32.0
[~2016-11-09] VITALS: Ht 162.6 cm; Wt 86.4 kg
[~2016-11-09] MED LIST changes: +ACET-1256 PO; +ALPR-385 PO; +DSY100 PO; +LIDOCAINE HCL 2% 2 ML VIAL (20MG/ML) ONE; +MIDAZOLAM HCL 1 MG/ML 2ML VIAL ONE; -POLY335019 PO; +PROPOFOL IV EMULSION 10 MG/ML 20 ML VIAL IV ONE; +PRT/40 PO; +QUET5TAB PO; +ROSU20TA PO; -ROSU40TA PO; +SODIUM CHLORIDE 0.9% 500ML 500 ML IV ONE; +SUCR1TAB29 PO
[2016-11-09 11:05] VITALS: Ht 162.6 cm; Wt 86.4 kg
--- NOTE | 2016-11-09 11:47 | Endo History and Physical ---
History & Physical Date of Service: Nov 09, 2016. Chief Complaint: abdominal pain and nausea, hx of gastric bypass Referring Physician: Dr. Valdes History of Present Illness 46 yo female who presents for EGD secondary to abdominal pain, nausea, and history of gastric bypass. Past Medical History Anxiety, High Cholesterol, Hypertension, Depression Past Surgical History Hx Cardiac Surgery: No Hx Internal Defibrillator: No Hx Pacemaker: No Hx Abdominal Surgery: Yes (ABDOMINAL BAND AND REMOVAL,GASTRIC BYPASS, C- SECTION X 2) Hx of Implantable Prosthesis: No Hx Post-Op Nausea and Vomiting: No Hx Cancer Surgery: No Hx Thoracic Surgery: No Hx Orthopedic: No Hx Urinary Tract Surgery: No Family History Polyp Social History Smoking Status: Current Every Day Smoker Hx Substance Use: No (SEE MED REC) Hx Alcohol Use: No Allergies Coded Allergies: Sucralfate (Verified Adverse Reaction, Unknown, Eye irritation., 11/09/16) Reported by PT. Current Medications Reported Home Medications Medications Dose Route/Sig Max Daily Dose Days Date Category Roxicodone Ir (Oxycodone HCl) 5 Mg Tab 5-20 Mg PO Q6H PRN 11/08/16 Reported Nexium (Esomeprazole Magnesium) 20 Mg Capcr 20 Mg PO BID 11/08/16 Reported Crestor (Rosuvastatin Calcium) 20 Mg Tab 20 Mg PO HS 11/08/16 Reported Klonopin (Clonazepam) 0.5 Mg Tab 0.5 Mg PO HS 11/08/16 Reported Trazodone (Trazodone HCl) 50 Mg Tab 50 Mg PO HS 11/08/16 Reported Xanax (Alprazolam) 0.5 Mg Tab 0.5 Mg PO DAILY AT NOON 11/08/16 Reported Lexapro (Escitalopram Oxalate) 10 Mg Tab 10 Mg PO QAM 11/08/16 Reported Trazodone (Trazodone HCl) 50 Mg Tab 0.25 Tab PO DAILY PRN 11/08/16 Reported Seroquel (Quetiapine Fumarate) 50 Mg Tab 50 Mg PO QAM 11/08/16 Reported Seroquel (Quetiapine Fumarate) 25 Mg Tab 25 Mg PO DAILY AFTERNOON 11/08/16 Reported Xanax (Alprazolam) 1 Mg Tab 1 Mg PO QAM 11/08/16 Reported Vital Signs Weight (Kilograms): 86.36 Height (Feet): 5 Height (Inches): 4 Date Time Temp Pulse Resp B/P Pulse Ox O2 Delivery O2 Flow Rate FiO2 11/09/16 11:16 36.7 76 16 140/70 97 Room Air Physical Exam General Appearance: WD/WN, no apparent distress Respiratory/Chest: Auscultation: breath sounds normal Cardiovascular: Heart Auscultation: RRR Abdomen: Bowel Sounds: normal Inspection & Palpation: soft, non-distended, no tenderness, guarding & rebound Assessment and Plan Assessment: 46 yo female who presents for EGD secondary to abdominal pain, nausea, and history of gastric bypass. Plan: Proceed with EGD
--- NOTE | 2016-11-09 12:44 | GI REPORT ---
Procedure Date: 11/09/2016 11:35 AM Procedure: Upper GI endoscopy Indications: Abnormal CT of the GI tract Medicines: Monitored Anesthesia Care Complications: No immediate complications. Estimated Blood Loss: Estimated blood loss: none. Procedure: Pre-Anesthesia Assessment: - Prior to the procedure, a History and Physical was performed, and patient medications and allergies were reviewed. The patient's tolerance of previous anesthesia was also reviewed. The risks and benefits of the procedure and the sedation options and risks were discussed with the patient. All questions were answered, and informed consent was obtained. Prior Anticoagulants: The patient has taken no previous anticoagulant or antiplatelet agents. ASA Grade Assessment: II - A patient with mild systemic disease. After reviewing the risks and benefits, the patient was deemed in satisfactory condition to undergo the procedure. After obtaining informed consent, the endoscope was passed under direct vision. Throughout the procedure, the patient's blood pressure, pulse, and oxygen saturations were monitored continuously. The scope was introduced through the mouth, and advanced to the second part of duodenum. The upper GI endoscopy was accomplished without difficulty. The patient tolerated the procedure well. Findings: The esophagus was normal. Evidence of a Marion-en-Y gastrojejunostomy was found. 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 The gastrojejunal anastomosis was characterized by ulceration. This was traversed. The llwcq-kz-idlavek limb was characterized by healthy appearing mucosa. The uovqjafi-dj-tujjeop limb was not examined as it could not be found. The examined jejunum was normal. Impression: - Normal esophagus. - Marion-en-Y gastrojejunostomy with gastrojejunal anastomosis characterized by ulceration. - Normal examined jejunum. - No specimens collected. Recommendation: - Resume previous diet. - Continue present medications. - Refer to a surgeon. - Return to primary care physician as previously scheduled. Pipo Wong DO 11/09/2016 12:44:05 PM This report has been signed electronically. Note Initiated On: 11/09/2016 11:35 AM I attest to the content of the Intraoperative Record and orders documented therein, exceptions below
--- NOTE | 2016-11-09 12:45 | Discharge Instructions ---
Endoscopy Patient Instructions Date / Procedure(s) Performed Nov 09, 2016. EGD Allergy Information Coded Allergies: Sucralfate (Verified Adverse Reaction, Unknown, Eye irritation., 11/09/16) Reported by PT. Discharge Date / Findings Nov 09, 2016. Gastro-gastric fistula Anastomotic ulcer Medication Instructions OK to resume all medications today as prescribed. Reported Home Medications Medications Dose Route/Sig Max Daily Dose Days Date Category Roxicodone Ir (Oxycodone HCl) 5 Mg Tab 5-20 Mg PO Q6H PRN 11/08/16 Reported Nexium (Esomeprazole Magnesium) 20 Mg Capcr 20 Mg PO BID 11/08/16 Reported Crestor (Rosuvastatin Calcium) 20 Mg Tab 20 Mg PO HS 11/08/16 Reported Klonopin (Clonazepam) 0.5 Mg Tab 0.5 Mg PO HS 11/08/16 Reported Trazodone (Trazodone HCl) 50 Mg Tab 50 Mg PO HS 11/08/16 Reported Xanax (Alprazolam) 0.5 Mg Tab 0.5 Mg PO DAILY AT NOON 11/08/16 Reported Lexapro (Escitalopram Oxalate) 10 Mg Tab 10 Mg PO QAM 11/08/16 Reported Trazodone (Trazodone HCl) 50 Mg Tab 0.25 Tab PO DAILY PRN 11/08/16 Reported Seroquel (Quetiapine Fumarate) 50 Mg Tab 50 Mg PO QAM 11/08/16 Reported Seroquel (Quetiapine Fumarate) 25 Mg Tab 25 Mg PO DAILY AFTERNOON 11/08/16 Reported Xanax (Alprazolam) 1 Mg Tab 1 Mg PO QAM 11/08/16 Reported Provider Instructions Activity Restrictions - No exercising or heavy lifting for 24 hours. - Do not drink alcohol the day of the procedure. - Do not drive a car or operate machinery until the day after the procedure. - Do not make any important decisions or sign important papers in 24 hours after the procedure. Following Day: - Return to full activity which may include returning to work/school. Diet Start your diet with liquids and light foods (jello, soup, juice, toast). Then eat your usual diet if not nauseated. Treatment For Common After Affects For mild abdominal pain, bloating, or excessive gas: - Rest - Eat lightly - Lie on right side Follow-Up Information Follow-up with Dr. Valdes as scheduled Anesthesia Information What You Should Know You have had a procedure that required some medicine to reduce anxiety and discomfort. This treatment is called moderate sedation. After receiving the treatment, you may be sleepy, but you will be able to breathe on your own. The effects of the treatment may last for several hours. Follow these instructions along with Activity/Diet recommendations noted above: * Do NOT do anything where dizziness or clumsiness would be dangerous. * Rest quietly at home today, then you can be up and about tomorrow. * Have a responsible person stay with you the rest of today. * You may have had an I.V. today. If so, you may take the dressing off later today. Recommendations Call your doctor if: * Trouble breathing * Continuous vomiting for more than 24 hours * Temperature above 101 degrees * Severe abdominal pain or bloating * Pain not relieved by pain medicine ordered * There is increased drainage or redness from any incision * A large amount of rectal bleeding greater than 2-3 tablespoons. (If you had a polyp/s removed or have hemorrhoids, a small amount of blood - from the rectum is to be expected.) * You have any unanswered questions or concerns. IN THE EVENT OF A SERIOUS EMERGENCY, GO TO THE NEAREST EMERGENCY ROOM Your discharge instructions were prepared by provider Pipo Wong. Patient Instructions Signature Page Paula Joaquin Patient (or Guardian) Signature/Date: I have read and understand the instructions given to me by my caregivers. Caregiver/RN/Doctor Signature/Date: The above-named patient and/or guardian has received patient instructions on this date. + Original Patient Signature Page (only) stays with chart. Please make copy for patient.
[2016-11-09 13:15] VITALS: BP 153/84; PULSE 76; O2SAT 100
--- NOTE | 2016-11-09 15:18 | Anesthesiology Progress Note ---
Anesthesia Post Op Note Date & Time Nov 09, 2016 at 15:18 Vital Signs Pain Intensity: 0 Vital Signs Past 12 Hours Date Time Temp Pulse Resp B/P Pulse Ox O2 Delivery O2 Flow Rate FiO2 11/09/16 13:15 76 18 153/84 100 Room Air 11/09/16 13:00 69 18 138/60 98 Room Air 11/09/16 12:45 74 20 127/63 100 Room Air 11/09/16 11:16 36.7 76 16 140/70 97 Room Air Notes Mental Status: alert / awake / arousable, participated in evaluation Pt Amnestic to Procedure: Yes Nausea / Vomiting: adequately controlled Pain: adequately controlled Airway Patency, RR, SpO2: stable & adequate BP & HR: stable & adequate Hydration State: stable & adequate Anesthetic Complications: no major complications apparent
== END | disposition home or self-care (01) ==
LOC: C.GI 10:24
PROVIDERS: ATTEND Internal Medicine
DX: K25.9 Gastric ulcer, unspecified as acute or chronic, without hemorrhage or perforation (principal); K31.6 Fistula of stomach and duodenum; K31.89 Other diseases of stomach and duodenum; K28.9 Gastrojejunal ulcer, unspecified as acute or chronic, without hemorrhage or perforation; F41.9 Anxiety disorder, unspecified; E78.5 Hyperlipidemia, unspecified; I10 Essential (primary) hypertension; F17.210 Nicotine dependence, cigarettes, uncomplicated; F32.9 Major depressive disorder, single episode, unspecified

== ENCOUNTER 2016-11-17 16:17 | Emergency (ER) | payer OTHER ==
[~2016-11-17] VITALS: Ht 162.6 cm; Wt 98.6 kg
[~2016-11-17 16:17] MED LIST changes: -ACET-1256 PO; -ALPR-385 PO; -DSY100 PO; -ESOM20CA PO; -KLN1X PO; -LIDOCAINE HCL 2% 2 ML VIAL (20MG/ML) ONE; -LXP10 PO; -MIDAZOLAM HCL 1 MG/ML 2ML VIAL ONE; -OXYC-164 PO; -PROPOFOL IV EMULSION 10 MG/ML 20 ML VIAL IV ONE; -PRT/40 PO; -QUET5TAB PO; -ROSU20TA PO; -SODIUM CHLORIDE 0.9% 500ML 500 ML IV ONE; -SRQ25 PO; -SUCR1TAB29 PO; -TRAZ1TAB5 PO
[2016-11-17 16:26] VITALS: TEMP 37; Ht 162.6 cm; Wt 98.6 kg
[2016-11-17] MEDS ORDERED: ONDANSETRON INJ 2 MG/ML 2 ML VIAL IV STA (16:44)
[2016-11-17] MEDS ORDERED: SODIUM CHLORIDE 0.9% 1000ML 1,000 ML IV STA (16:44)
[2016-11-17] MEDS ORDERED: SODIUM CHLORIDE 0.9% 500ML 500 ML IV STA (16:44)
--- NOTE | 2016-11-17 16:50 | EMERGENCY ROOM VISIT NOTE ---
History Report prepared by Jerri: Dima Esptiia Under the Supervision of: Dr. Mariano Boone M.D. First contact with patient: 16:31 Chief Complaint: ABDOMINAL PAIN Stated Complaint: ABD PAIN History of Present Illness The patient is a 46 year old female who presents to the Emergency Room with complaints of mid abdominal pain that began 3 weeks ago. The patient rates her pain as "horrible." Her pain is usually just in the mid abdomen, but has now radiated to her lower mid abdomen as well. The patient has been to the emergency department twice in the recent past for her abdominal pain. She was seen here on the 31 of October. 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 She was told that she needs to have surgery for the fistula, but they are taking "such a long time" to get back to her and to schedule to surgery. Her pain is persisting and would like it done as soon as possible. She went to [facility] today for the pain and was sent back to the emergency department. She is experiencing constipation. Occasionally when the patient eats, her pain worsens. She denies any fevers or urinary symptoms. Source of History: patient Onset: 3 weeks ago Position: abdomen Symptom Intensity: severe Quality: sharp Timing: other (persistent) Modifying Factors (Worsening): eating Associated Symptoms: No fevers, No urinary symptoms Note: She is experiencing constipation. Review of Systems See HPI for pertinent positives & negatives. A total of 10 systems reviewed and were otherwise negative. Past Medical & Surgical Medical Problems: (1) Anemia (2) Anxiety (3) Benign hypertension (4) section (5) Depression (6) Disorder of gallbladder (7) gastric bypass (8) Heart disease (9) History of endoscopy (10) MIGRAINE UNSPECIFIED W/O INTRACT MGRN W/O STATUS MIGRAINOSUS (11) Panic disorder (12) PSVT (paroxysmal supraventricular tachycardia) (13) stomach band (14) stomach problems (15) urinary problems Surgical Problems: (1) History of colonoscopy Family History Patient reports no known family medical history. Social History Smoking Status: Current Every Day Smoker Alcohol Use: none Drug Use: none Marital Status: Housing Status: lives with family Occupation Status: unemployed Current/Historical Medications Scheduled [facility] Eaglezolam (Xanax), 1 MG PO QAM Alprazolam (Xanax), 0.5 MG PO DAILY AT NOON Clonazepam (Klonopin), 0.5 MG PO HS Escitalopram (Lexapro), 10 MG PO QAM Esomeprazole Magnesium (Nexium), 20 MG PO BID Quetiapine Fumarate (Seroquel), 25 MG PO DAILY AFTERNOON Quetiapine Fumarate (Seroquel), 50 MG PO QAM Rosuvastatin Calcium (Crestor), 20 MG PO HS Trazodone Hcl (Trazodone), 50 MG PO HS Scheduled PRN Oxycodone Ir (Roxicodone Ir), 5-20 MG PO Q6H PRN for Pain Trazodone Hcl (Trazodone), 0.25 TAB PO DAILY PRN for PANIC ATTACK Allergies Coded Allergies: Sucralfate (Verified Adverse Reaction, Unknown, Eye irritation., 11/17/16) Reported by PT. Physical Exam Vital Signs Date Time Temp Pulse Resp B/P Pulse Ox O2 Delivery O2 Flow Rate FiO2 11/17/16 20:59 73 16 133/79 100 11/17/16 18:07 70 16 143/84 100 Room Air 11/17/16 16:26 37.0 84 16 142/70 99 Room Air Physical Exam GENERAL: Patient is in no acute distress. HEENT: No acute trauma, normocephalic atraumatic, mucous membranes moist, no nasal congestion, no scleral icterus. NECK: No stridor, no adenopathy, no meningismus, trachea is midline. LUNGS: Clear to auscultation bilaterally, no wheeze, no rhonchi, breath sounds equal. HEART: Without murmurs gallops or rubs, regular rate and rhythm. ABDOMEN: Soft, mild diffuse tenderness, bowel sounds positive, no hernias, no peritonitis. EXTREMITIES: No cyanosis or edema, full range of motion of all the joints without pain or difficulty, no signs for acute trauma. NEUROLOGIC: Oriented x 3, no acute motor or sensory deficits, no focal weakness. SKIN: No rash, no jaundice, no diaphoresis. Medical Decision & Procedures ER Provider Diagnostic Interpretation: Radiology results are stated below per my review and radiologist interpretation: CT SCAN OF THE ABDOMEN AND PELVIS WITH IV CONTRAST CLINICAL HISTORY: Generalized abdominal pain. COMPARISON STUDY: Abdominal CT dated 10/31/2016. TECHNIQUE: Following the IV administration of 121 cc of Optiray 320, CT scan of the abdomen and pelvis is performed from the lung bases to the proximal femora. Images are reviewed in the axial, sagittal, and coronal planes. IV contrast was administered without complication. Automated dose control exposure was utilized. CT DOSE: 769.69 mGy.cm FINDINGS: Lung bases: The heart is normal in size and without pericardial effusion. The lung bases are clear noting dependent atelectasis. Liver: The contrast-enhanced liver is mildly enlarged, measuring 19.4 cm in length. The liver is otherwise normal in contour and attenuation. There is no intrahepatic biliary ductal dilatation. The hepatic veins and portal veins are patent. Gallbladder: Unremarkable. Spleen: Normal in size and attenuation. Pancreas: Unremarkable. Adrenal glands: Unremarkable. Kidneys: The contrast enhanced kidneys are normal in size and without hydronephrosis. The kidneys enhance symmetrically. Abdominal vasculature: The abdominal aorta is normal in course and caliber noting scattered foci of apical scarring calcification. Stomach and bowel: There are postoperative changes consistent with a Marion-en-Y gastric bypass surgery. No bowel obstruction is seen. There is enteric contrast filling the excluded stomach and the pancreaticobiliary limb. Nonspecific stranding is again seen around the gastrojejunostomy site. No extraluminal contrast is identified. There is moderate to severe constipation. The appendix is well-visualized and normal. Peritoneum: There is no intraperitoneal free air or abdominal ascites. Lymphadenopathy: Mildly enlarged mesenteric lymph nodes are similar to previous and measure up to 11 mm in short axis. There is no retroperitoneal, pelvic sidewall, or inguinal lymphadenopathy. Pelvic viscera: The bladder, uterus common and adnexa are normal as visualized. Follicles in the left ovary are again noted measuring up to 2.0 cm. Skeletal structures: No lytic or blastic lesions are seen. IMPRESSION: 1. Again seen are postoperative changes consistent with a Marion-en-Y gastric bypass surgery. There is no bowel obstruction. No extraluminal contrast is identified. 2. Enteric contrast fills the excluded stomach and the pancreaticobiliary limb. This suggests a communication/fistula between the gastric pouch and the excluded stomach. 3. Nonspecific inflammatory stranding is again seen around the gastrojejunostomy site. This is similar to the 10/31/2016 examination. Follow-up with the patient's bariatric surgeon is recommended. Endoscopy may be useful for further assessment. 4. Nonspecific mildly enlarged mesenteric lymph nodes may be on a reactive basis. 5. Moderate to severe constipation. 6. Dominant follicles in the left ovary are similar to the 10/31/2016 examination measured 2.0 cm. Follow-up with a nonemergent pelvic ultrasound in 2-3 menstrual cycles is recommended to document resolution. 7. Additional findings as above. Electronically signed by: Mariano Jimenez M.D. 11/17/2016 7:55 PM Dictated Date/Time: 11/17/2016 7:43 PM Laboratory Results 11/17/16 17:43 Red Blood Count 4.59, Mean Corpuscular Volume 82.1, Mean Corpuscular Hemoglobin 27.2, Mean Corpuscular Hemoglobin Concent 33.2, Mean Platelet Volume 10.2, Neutrophils (%) (Auto) 40.1, Lymphocytes (%) (Auto) 51.4, Monocytes (%) (Auto) 6.8, Eosinophils (%) (Auto) 1.4, Basophils (%) (Auto) 0.3, Neutrophils # (Auto) 2.93, Lymphocytes # (Auto) 3.76, Monocytes # (Auto) 0.50, Eosinophils # (Auto) 0.10, Basophils # (Auto) 0.02 11/17/16 17:43 Test 11/17/16 17:43 11/17/16 18:00 White Blood Count 7.31 K/uL (4.8-10.8) Red Blood Count 4.59 M/uL (4.2-5.4) Hemoglobin 12.5 g/dL (12.0-16.0) Hematocrit 37.7 % (37-47) Mean Corpuscular Volume 82.1 fL (80-100) Mean Corpuscular Hemoglobin 27.2 pg (25-34) Mean Corpuscular Hemoglobin Concent 33.2 g/dl (32-36) Platelet Count 262 K/uL (130-400) Mean Platelet Volume 10.2 fL (7.4-10.4) Neutrophils (%) (Auto) 40.1 % Lymphocytes (%) (Auto) 51.4 % Monocytes (%) (Auto) 6.8 % Eosinophils (%) (Auto) 1.4 % Basophils (%) (Auto) 0.3 % Neutrophils # (Auto) 2.93 K/uL (1.4-6.5) Lymphocytes # (Auto) 3.76 K/uL (1.2-3.4) Monocytes # (Auto) 0.50 K/uL (0.11-0.59) Eosinophils # (Auto) 0.10 K/uL (0-0.5) Basophils # (Auto) 0.02 K/uL (0-0.2) RDW Standard Deviation 55.1 fL (36.4-46.3) RDW Coefficient of Variation 18.5 % (11.5-14.5) Immature Granulocyte % (Auto) 0.0 % Immature Granulocyte # (Auto) 0.00 K/uL (0.00-0.02) Anion Gap 9.0 mmol/L (3-11) Est Creatinine Clear Calc Drug Dose 126.0 ml/min Estimated GFR () 123.8 Estimated GFR (Non- 106.8 BUN/Creatinine Ratio 12.2 (10-20) Calcium Level 8.8 mg/dl (8.5-10.1) Total Bilirubin 0.3 mg/dl (0.2-1) Aspartate Amino Transf (AST/SGOT) 14 U/L (15-37) Alanine Aminotransferase (ALT/SGPT) 15 U/L (12-78) Alkaline Phosphatase 59 U/L (45-117) Total Protein 7.8 gm/dl (6.4-8.2) Albumin 3.5 gm/dl (3.4-5.0) Globulin 4.3 gm/dl (2.5-4.0) Albumin/Globulin Ratio 0.8 (0.9-2) Urine Color YELLOW Urine Appearance CLEAR (CLEAR) Urine pH 6.0 (4.5-7.5) Urine Specific [place] 1.009 (1.000-1.030) Urine Protein NEG (NEG) Urine Glucose (UA) NEG (NEG) Urine Ketones NEG (NEG) Urine Occult Blood NEG (NEG) Urine Nitrite NEG (NEG) Urine Bilirubin NEG (NEG) Urine Urobilinogen NEG (NEG) Urine Leukocyte Esterase NEG (NEG) Laboratory results reviewed by me. Medications Administered Medications (Trade) Dose Ordered Sig/Beth Route Start Time Stop Time Status Last Admin Dose Admin Sodium Chloride 500 ml @ 999 mls/hr Q31M STAT IV 11/17/16 16:44 11/17/16 17:14 DC 11/17/16 18:05 999 MLS/HR Sodium Chloride (Nss 1000ml) 1,000 ml @ 200 mls/hr Q5H STAT IV 11/17/16 16:44 11/17/16 21:05 DC 11/17/16 18:50 200 MLS/HR Morphine Sulfate (MoRPHine SULFATE INJ) 6 mg Q15M PRN IV 11/17/16 16:45 11/17/16 21:05 DC 11/17/16 18:50 6 MG Ondansetron HCl (Zofran Inj) 4 mg NOW STAT IV 11/17/16 16:44 11/17/16 16:48 DC 11/17/16 18:01 4 MG Lidocaine HCl (Viscous Lidocaine 2% Soln) 20 ml STK-MED ONCE .ROUTE 11/17/16 17:55 11/17/16 17:58 DC 11/17/16 18:03 10 ML Al Hydroxide/Mg Hydroxide (Maalox Susp) 30 ml STK-MED ONCE .ROUTE 11/17/16 17:55 11/17/16 17:58 DC 11/17/16 18:03 30 ML Morphine Sulfate (MoRPHine SULFATE INJ) 4 mg NOW STAT IV 11/17/16 20:31 11/17/16 20:32 DC 11/17/16 20:36 4 MG ED Course 1631: The patient was evaluated in room C5. A complete history and physical exam was performed. 1644: Zofran Inj 4 mg IV, Sodium Chloride 1000 ml @ 200 mls/hr IV, Sodium Chloride 500 ml @ 999 mls/hr IV 1645: Morphine Sulfate 6 mg IV 1713: Gi Cocktail 24 ml PO 1755: Maalox Susp 30 ml .ROUTE, Lidocaine HCl 20 ml .ROUTE 5: I reassessed the patient at this time. 2030: Morphine Sulfate 4 mg IV 2035: Reevaluated the patient. Discussed results and discharge instructions: She verbalized understanding and agreement. The patient is ready for discharge. Medical Decision Differential diagnosis includes but is not limited to: Acute on chronic pain, UTI, pancreatitis, fistula, diverticulitis, abscess, and ulcer . There is no leukocytosis or concerning anemia. No significant electrolyte abnormality, kidney failure, hepatitis. Urinalysis does not show hematuria or infection. On exam, the patient was not febrile or toxic, there was no peritonitis. Abdominal and pelvis CT shows the gastric to gastric fistula, there were some swollen lymph nodes, severe constipation was noted. The patient received IV saline, IV Zofran, IV morphine. She received a GI cocktail. The patient feels improved, she was reassured by her testing. I do not think any emergent surgery is needed, she can follow with her surgeons as scheduled. The patient can follow with her doctor for her medications as previously prescribed. No prescription narcotics were given upon discharge. The patient left in stable condition. She appears to be having a flare of her chronic condition. In addition, she has constipation-she will start Miralax, she has used this before with success. Impression Primary Impression: Diffuse abdominal pain Scribe Attestation The scribe's documentation has been prepared under my direction and personally reviewed by me in its entirety. I confirm that the note above accurately reflects all work, treatment, procedures, and medical decision making performed by me. Departure Information Dispostion Home / Self-Care Referrals Cal Valdes DO (PCP) Forms Call Back Authorization, HOME CARE DOCUMENTATION FORM, IMPORTANT VISIT INFORMATION Patient Instructions [facility] Additional Instructions miralax for the constipation all other meds as before you may continue your meds as before and follow withsurgery as scheduled no emergency was found today---your findings on CT scan are stable, your labs are stable
[2016-11-17] MEDS ORDERED: GI COCKTAIL PO STA (17:13)
[2016-11-17 17:52] LABS: HEMATOCRIT 37.7 % (37-47); MEAN CELL VOLUME 82.1 fL (80-100); MEAN CORPUSCULAR HEMOGLOBIN 27.2 pg (25-34); MEAN CORPUSCULAR HGB CONC 33.2 g/dl (32-36); MEAN PLATELET VOLUME 10.2 fL (7.4-10.4); PLATELET COUNT 262 K/uL (130-400); RED BLOOD COUNT 4.59 M/uL (4.2-5.4); WHITE BLOOD COUNT 7.31 K/uL (4.8-10.8)
[2016-11-17] MEDS ORDERED: LIDOCAINE HCL 2% VISC SOLN 20 ML UDC ONE (17:55)
[2016-11-17] MEDS ORDERED: ALUMINUM/MAGNESIUM SUSP 30 ML UDC ONE (17:55)
[2016-11-17] MEDS: MoRPHine SULFATE 10 MG/ML CARP/VIAL IV PRN ×2 (18:02→18:50)
[2016-11-17 18:11] LABS: BUN/CREATININE RATIO 12.2 (10-20); CALCIUM 8.8 mg/dl (8.5-10.1); CREATININE 0.63 mg/dl (0.60-1.20); POTASSIUM 3.5 mmol/L (3.5-5.1)
[2016-11-17 18:14] LABS: ALB/GLOB RATIO 0.8 (0.9-2); BASO % 0.3 %; BASO ABS # 0.02 K/uL (0-0.2); COMPLETE YES; EOS % 1.4 %; LYMPH % 51.4 %; LYMPH ABS # 3.76 K/uL (1.2-3.4); MONO % 6.8 %; NEUT % 40.1 %
[2016-11-17 18:36] LABS: URINE APPEARANCE CLEAR (CLEAR); URINE BILIRUBIN NEG (NEG); URINE COLOR YELLOW; URINE NITRITE NEG (NEG); URINE SPECIFIC GRAVITY 1.009 (1.000-1.030); UROBILINOGEN NEG (NEG)
[2016-11-17 18:46] LABS: MANUAL MICROSCOPIC REQUIRED? NO; REVIEW REQ? NO
[2016-11-17] MEDS ORDERED: OPTIRAY 320 IV PRN (19:15)
--- NOTE | 2016-11-17 19:56 | DIAGNOSTIC IMAGING REPORT ---
CT SCAN OF THE ABDOMEN AND PELVIS WITH IV CONTRAST CLINICAL HISTORY: Generalized abdominal pain. COMPARISON STUDY: Abdominal CT dated 10/31/2016. TECHNIQUE: Following the IV administration of 121 cc of Optiray 320, CT scan of the abdomen and pelvis is performed from the lung bases to the proximal femora. Images are reviewed in the axial, sagittal, and coronal planes. IV contrast was administered without complication. Automated dose control exposure was utilized. CT DOSE: 769.69 mGy.cm FINDINGS: Lung bases: The heart is normal in size and without pericardial effusion. The lung bases are clear noting dependent atelectasis. Liver: The contrast-enhanced liver is mildly enlarged, measuring 19.4 cm in length. The liver is otherwise normal in contour and attenuation. There is no intrahepatic biliary ductal dilatation. The hepatic veins and portal veins are patent. Gallbladder: Unremarkable. Spleen: Normal in size and attenuation. Pancreas: Unremarkable. Adrenal glands: Unremarkable. Kidneys: The contrast enhanced kidneys are normal in size and without hydronephrosis. The kidneys enhance symmetrically. Abdominal vasculature: The abdominal aorta is normal in course and caliber noting scattered foci of apical scarring calcification. Stomach and bowel: There are postoperative changes consistent with a Marion-en-Y gastric bypass surgery. No bowel obstruction is seen. There is enteric contrast filling the excluded stomach and the pancreaticobiliary limb. Nonspecific stranding is again seen around the gastrojejunostomy site. No extraluminal contrast is identified. There is moderate to severe constipation. The appendix is well-visualized and normal. Peritoneum: There is no intraperitoneal free air or abdominal ascites. Lymphadenopathy: Mildly enlarged mesenteric lymph nodes are similar to previous and measure up to 11 mm in short axis. There is no retroperitoneal, pelvic sidewall, or inguinal lymphadenopathy. Pelvic viscera: The bladder, uterus common and adnexa are normal as visualized. Follicles in the left ovary are again noted measuring up to 2.0 cm. Skeletal structures: No lytic or blastic lesions are seen. IMPRESSION: 1. Again seen are postoperative changes consistent with a Marion-en-Y gastric bypass surgery. There is no bowel obstruction. No extraluminal contrast is identified. 2. Enteric contrast fills the excluded stomach and the pancreaticobiliary limb. This suggests a communication/fistula between the gastric pouch and the excluded stomach. 3. Nonspecific inflammatory stranding is again seen around the gastrojejunostomy site. This is similar to the 10/31/2016 examination. Follow-up with the patient's bariatric surgeon is recommended. Endoscopy may be useful for further assessment. 4. Nonspecific mildly enlarged mesenteric lymph nodes may be on a reactive basis. 5. Moderate to severe constipation. 6. Dominant follicles in the left ovary are similar to the 10/31/2016 examination measured 2.0 cm. Follow-up with a nonemergent pelvic ultrasound in 2-3 menstrual cycles is recommended to document resolution. 7. Additional findings as above. Electronically signed by: Mariano Jimenez M.D. 11/17/2016 7:55 PM Dictated Date/Time: 11/17/2016 7:43 PM
[2016-11-17] MEDS ORDERED: MoRPHine SULFATE 4 MG/ML 1 ML CARP\\VIAL IV STA (20:31)
[2016-11-17 20:59] VITALS: BP 133/79; PULSE 73; O2SAT 100
[2016-11-25] MEDS ORDERED: ESOM20CA PO (11:58)
[2016-11-25] MEDS ORDERED: ROSU20TA PO (11:58)
[2017-02-26] MEDS ORDERED: ACET-1256 PO (06:47)
[2017-02-26] MEDS ORDERED: PRT/40 PO (18:53)
== END 2016-11-17 21:00 | disposition home or self-care (01) ==
LOC: C.EDB 16:18 → C.EDC 21:00
DX: R10.9 Unspecified abdominal pain (principal); Z79.899 Other long term (current) drug therapy; I10 Essential (primary) hypertension; F17.210 Nicotine dependence, cigarettes, uncomplicated

== ENCOUNTER 2016-11-22 13:57 | Emergency (ER) | payer OTHER ==
[~2016-11-22] VITALS: Ht 162.6 cm; Wt 99.8 kg
[2016-11-22 14:05] VITALS: TEMP 36.9; Ht 162.6 cm; Wt 99.8 kg
[2016-11-22] MEDS ORDERED: METOCLOPRAMIDE HCL INJ 5 MG/ML 2 ML VIAL IV STA ×2 (16:27→17:45)
[2016-11-22] MEDS ORDERED: HYDROmorphone INJ 1 MG/ML SYR IV STA (16:27)
[2016-11-22] MEDS ORDERED: SODIUM CHLORIDE 0.9% 1000ML 1,000 ML IV STA (16:27)
[2016-11-22] MEDS ORDERED: SUCRALFATE 1 GM TAB PO STA (16:29)
[2016-11-22] MEDS ORDERED: GI COCKTAIL PO STA (16:29)
[2016-11-22] MEDS ORDERED: FAMOTIDINE 20 MG TAB PO ONE (16:30)
[2016-11-22] MEDS ORDERED: HYDROmorphone INJ 2 MG/ML SYR/VIAL IV STA ×2 (16:37→17:44)
[2016-11-22] MEDS ORDERED: ALUMINUM/MAGNESIUM SUSP 30 ML UDC ONE (16:53)
[2016-11-22] MEDS ORDERED: LIDOCAINE HCL 2% VISC SOLN 20 ML UDC ONE (16:53)
--- NOTE | 2016-11-22 16:54 | EMERGENCY ROOM VISIT NOTE ---
History Report prepared by Jerri: Sagar Middleton Under the Supervision of: Dr. Tyrone Gonsales M.D. First contact with patient: 16:10 Chief Complaint: ABDOMINAL PAIN Stated Complaint: ABD PAIN Nursing Triage Summary: Patient c/o diffuse abd pain states it is the same pain she had when she was here last. Patient also reports diarrhea on and off. History of Present Illness The patient is a 46 year old female who presents to the Emergency Room with complaints of worsening abdominal pain that started prior to arrival. She has a history of gastric bypass surgery. The patient has been having this abdominal pain for a while and has been here 3 times this year for the pain. She has been having diarrhea off and on for the past few days. The patient had a CT scan and endoscopy done recently. She notes that she has chronic ulcers. The patient has surgery scheduled in [place], but the surgeon wants the patient to be scoped again prior to the surgery. She is mostly here for pain control, and she notes that a GI Cocktail worked for her pain last time she was here. The patient is concerned about cancer, as most of her family has from cancer. 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 Source of History: patient Onset: Prior to arrival Position: abdomen Timing: worsening Associated Symptoms: + diarrhea Note: No other associated symptoms noted. Review of Systems See HPI for pertinent positives & negatives. A total of 10 systems reviewed and were otherwise negative. Past Medical & Surgical Medical Problems: (1) Anemia (2) Anxiety (3) Benign hypertension (4) section (5) Depression (6) Disorder of gallbladder (7) gastric bypass (8) Heart disease (9) History of endoscopy (10) MIGRAINE UNSPECIFIED W/O INTRACT MGRN W/O STATUS MIGRAINOSUS (11) Panic disorder (12) PSVT (paroxysmal supraventricular tachycardia) (13) stomach band (14) stomach problems (15) urinary problems Surgical Problems: (1) History of colonoscopy Family History Patient reports no known family medical history. Social History Smoking Status: Current Every Day Smoker Alcohol Use: none Drug Use: none Marital Status: Housing Status: lives with family Occupation Status: unemployed Current/Historical Medications Scheduled Alprazolam (Xanax), 1 MG PO QAM Alprazolam (Xanax), 0.5 MG PO DAILY AT NOON Clonazepam (Klonopin), 0.5 MG PO HS Escitalopram (Lexapro), 10 MG PO QAM Esomeprazole Magnesium (Nexium), 20 MG PO BID Quetiapine Fumarate (Seroquel), 25 MG PO DAILY AFTERNOON Quetiapine Fumarate (Seroquel), 50 MG PO QAM Rosuvastatin Calcium (Crestor), 20 MG PO HS Trazodone Hcl (Trazodone), 25 MG PO HS Scheduled PRN Oxycodone Ir (Roxicodone Ir), 5-20 MG PO Q6H PRN for Pain Trazodone Hcl (Trazodone), 0.25 TAB PO DAILY PRN for PANIC ATTACK Allergies Coded Allergies: Sucralfate (Verified Adverse Reaction, Unknown, Eye irritation., 11/17/16) Reported by PT. Physical Exam Vital Signs Date Time Temp Pulse Resp B/P Pulse Ox O2 Delivery O2 Flow Rate FiO2 11/22/16 18:23 66 20 135/91 96 Room Air 11/22/16 17:19 79 11/22/16 17:10 81 20 146/78 96 Room Air 11/22/16 14:05 36.9 90 20 111/77 98 Room Air Physical Exam GENERAL: Patient is a healthy-appearing well-nourished HEAD: Normocephalic atraumatic EYES: Ocular movements intact pupils equal and react to light OROPHARYNX mucous membranes are moist no exudates present no erythema or edema present NECK: Supple no nuchal rigidity CHEST: Good equal expansion LUNGS: Clear and equal to auscultation CARDIAC: Normal S1 and S2 ABDOMEN: Soft nontender no guarding BACK: No CVA tenderness EXTREMITIES: No pain upon palpation normal muscle strength in all groups no clubbing cyanosis or edema NEURO: Patient is following commands is answering questions appropriately. Alert and oriented x3 Cranial Nerves 2-12 grossly intact Medical Decision & Procedures Laboratory Results 11/22/16 16:55 Red Blood Count 4.68, Mean Corpuscular Volume 83.1, Mean Corpuscular Hemoglobin 27.8, Mean Corpuscular Hemoglobin Concent 33.4, Mean Platelet Volume 11.2, Neutrophils (%) (Auto) 37.3, Lymphocytes (%) (Auto) 55.2, Monocytes (%) (Auto) 5.7, Eosinophils (%) (Auto) 1.4, Basophils (%) (Auto) 0.2, Neutrophils # (Auto) 2.45, Lymphocytes # (Auto) 3.61, Monocytes # (Auto) 0.37, Eosinophils # (Auto) 0.09, Basophils # (Auto) 0.01 11/22/16 16:55 Test 11/22/16 16:55 11/22/16 18:50 White Blood Count 6.54 K/uL (4.8-10.8) Red Blood Count 4.68 M/uL (4.2-5.4) Hemoglobin 13.0 g/dL (12.0-16.0) Hematocrit 38.9 % (37-47) Mean Corpuscular Volume 83.1 fL (80-100) Mean Corpuscular Hemoglobin 27.8 pg (25-34) Mean Corpuscular Hemoglobin Concent 33.4 g/dl (32-36) Platelet Count 253 K/uL (130-400) Mean Platelet Volume 11.2 fL (7.4-10.4) Neutrophils (%) (Auto) 37.3 % Lymphocytes (%) (Auto) 55.2 % Monocytes (%) (Auto) 5.7 % Eosinophils (%) (Auto) 1.4 % Basophils (%) (Auto) 0.2 % Neutrophils # (Auto) 2.45 K/uL (1.4-6.5) Lymphocytes # (Auto) 3.61 K/uL (1.2-3.4) Monocytes # (Auto) 0.37 K/uL (0.11-0.59) Eosinophils # (Auto) 0.09 K/uL (0-0.5) Basophils # (Auto) 0.01 K/uL (0-0.2) RDW Standard Deviation 56.8 fL (36.4-46.3) RDW Coefficient of Variation 18.7 % (11.5-14.5) Immature Granulocyte % (Auto) 0.2 % Immature Granulocyte # (Auto) 0.01 K/uL (0.00-0.02) Echinocytes 1+ Anion Gap 7.0 mmol/L (3-11) Est Creatinine Clear Calc Drug Dose 119.2 ml/min Estimated GFR () 121.3 Estimated GFR (Non- 104.7 BUN/Creatinine Ratio 8.1 (10-20) Calcium Level 8.6 mg/dl (8.5-10.1) Total Bilirubin 0.2 mg/dl (0.2-1) Direct Bilirubin < 0.1 mg/dl (0-0.2) Aspartate Amino Transf (AST/SGOT) 9 U/L (15-37) Alanine Aminotransferase (ALT/SGPT) 12 U/L (12-78) Alkaline Phosphatase 55 U/L (45-117) Total Protein 7.6 gm/dl (6.4-8.2) Albumin 3.3 gm/dl (3.4-5.0) Lipase 97 U/L (73-393) Urine Color YELLOW Urine Appearance CLEAR (CLEAR) Urine pH 7.5 (4.5-7.5) Urine Specific [place] 1.004 (1.000-1.030) Urine Protein NEG (NEG) Urine Glucose (UA) NEG (NEG) Urine Ketones NEG (NEG) Urine Occult Blood NEG (NEG) Urine Nitrite NEG (NEG) Urine Bilirubin NEG (NEG) Urine Urobilinogen NEG (NEG) Urine Leukocyte Esterase NEG (NEG) Labs reviewed by ED physician. Medications Administered Medications (Trade) Dose Ordered Sig/Beth Route Start Time Stop Time Status Last Admin Dose Admin Sodium Chloride (Nss 1000ml) 1,000 ml @ 999 mls/hr Q1H1M STAT IV 11/22/16 16:27 11/22/16 17:27 DC 11/22/16 17:05 999 MLS/HR Metoclopramide HCl (Reglan Inj) 10 mg NOW STAT IV 11/22/16 16:27 11/22/16 16:30 DC 11/22/16 17:05 10 MG Miscellaneous Medication (Gi Cocktail) 24 ml NOW STAT PO 11/22/16 16:29 11/22/16 16:31 DC 11/22/16 16:29 24 ML Famotidine (Pepcid Tab) 20 mg NOW ONCE PO 11/22/16 16:30 11/22/16 16:31 DC 11/22/16 17:05 20 MG Hydromorphone HCl (Dilaudid Inj) 2 mg NOW STAT IV 11/22/16 16:37 11/22/16 16:38 DC 11/22/16 17:06 2 MG Al Hydroxide/Mg Hydroxide (Maalox Susp) 30 ml STK-MED ONCE .ROUTE 11/22/16 16:53 11/22/16 16:57 DC 11/22/16 17:05 30 ML Lidocaine HCl (Viscous Lidocaine 2% Soln) 20 ml STK-MED ONCE .ROUTE 11/22/16 16:53 11/22/16 16:57 DC 11/22/16 17:05 20 ML Hydromorphone HCl (Dilaudid Inj) 2 mg NOW STAT IV 11/22/16 17:44 11/22/16 17:45 DC 11/22/16 18:22 2 MG Metoclopramide HCl (Reglan Inj) 10 mg NOW STAT IV 11/22/16 17:45 11/22/16 17:47 DC 11/22/16 18:23 10 MG ED Course 1627: Ordered Reglan Inj 10 mg IV, Dilaudid Inj 1 mg IV, NSS 1000 ml @ 999 mls/ hr IV. 1629: Ordered Carafate Tab 1 gm PO, GI Cocktail 24 ml PO. 1630: Ordered Pepcid Tab 20 mg PO. 1632: Past medical records reviewed. The patient was evaluated in room B12B. A complete history and physical examination was performed. 1637: Ordered Dilaudid Inj 2 mg IV. 1844: Upon reexamination the patient is resting comfortably. I discussed results and treatment plan with the patient. She verbalizes agreement and understanding. The patient is ready for discharge. Medical Decision Differential diagnosis: Etiologies such as appendicitis, diverticulitis, PUD, biliary pathology, UTI, pancreatitis, obstruction, mesenteric ischemia, aortic pathology, infections, inflammatory bowel disease, renal colic, as well as others were entertained. This is a 46-year-old female who presents emergency department complaining of diffuse abdominal pain. The patient has been imaged multiple times for this abdominal pain and she is following up with [place] gastro[facility]ology. The patient is requesting 2 mg of Dilaudid as well as GI cocktail. She has a benign abdominal examination and is nontender. The patient is following up with [place] endoscopy tomorrow. I recommended a clear liquid diet for the next 48 hours. Patient was in agreement with the treatment plan. Serial abdominal examinations were performed on the patient in the emergency department and at no time did the patient exhibit a surgical abdomen. Impression Primary Impression: Epigastric pain Scribe Attestation The scribe's documentation has been prepared under my direction and personally reviewed by me in its entirety. I confirm that the note above accurately reflects all work, treatment, procedures, and medical decision making performed by me. Departure Information Dispostion Home / Self-Care Referrals Cal Valdes, (PCP) Forms Call Back Authorization, HOME CARE DOCUMENTATION FORM, IMPORTANT VISIT INFORMATION, School Instructions, Work Instructions Patient Instructions ED Diet Clear Liquid, ED Epigastric Pain [facility], My [facility] Additional Instructions Follow up with Dr Macias's office You received narcotic or benzodiazepene medication while in the emergency room today. Do not drive, operate heavy machinery, or drink alcohol under the influence of this medication. Clear liquid diet next 48 hours You have been examined and treated today on an emergency basis only. This is not a substitute for, or an effort to provide, complete comprehensive medical care. It is impossible to recognize and treat all injuries or illnesses in a single emergency department visit. It is therefore important that you follow up closely with Dr Valdes. Call as soon as possible for an appointment. Thank you for your time and consideration. I look forward to speaking with you again soon. Please don't hesitate to call us if you have any questions.
[2016-11-22 17:05] LABS: HEMATOCRIT 38.9 % (37-47); MEAN CELL VOLUME 83.1 fL (80-100); MEAN CORPUSCULAR HEMOGLOBIN 27.8 pg (25-34); MEAN CORPUSCULAR HGB CONC 33.4 g/dl (32-36); MEAN PLATELET VOLUME 11.2 fL (7.4-10.4); PLATELET COUNT 253 K/uL (130-400); RED BLOOD COUNT 4.68 M/uL (4.2-5.4); WHITE BLOOD COUNT 6.54 K/uL (4.8-10.8)
[2016-11-22 17:22] LABS: BASO % 0.2 %; BASO ABS # 0.01 K/uL (0-0.2); COMPLETE YES; ECHINOCYTES 1+; EOS % 1.4 %; IG% 0.2 %; LYMPH % 55.2 %; LYMPH ABS # 3.61 K/uL (1.2-3.4); MONO % 5.7 %; NEUT % 37.3 %
[2016-11-22 17:26] LABS: ALT/SGPT 12 U/L (12-78); AST/SGOT 9 U/L (15-37); BLOOD UREA NITROGEN 5 mg/dl (7-18); BUN/CREATININE RATIO 8.1 (10-20); CALCIUM 8.6 mg/dl (8.5-10.1); CARBON DIOXIDE 24 mmol/L (21-32); CHLORIDE 109 mmol/L (98-107); CREATININE 0.67 mg/dl (0.60-1.20); GLUCOSE 82 mg/dl (70-99); POTASSIUM 3.8 mmol/L (3.5-5.1); SODIUM 140 mmol/L (136-145)
[2016-11-22 17:29] LABS: ALKALINE PHOSPHATASE 55 U/L (45-117)
[2016-11-22 18:23] VITALS: BP 135/91; PULSE 66; O2SAT 96
[2016-11-22 19:21] LABS: URINE APPEARANCE CLEAR (CLEAR); URINE BILIRUBIN NEG (NEG); URINE COLOR YELLOW; URINE NITRITE NEG (NEG); URINE PH 7.5 (4.5-7.5); URINE SPECIFIC GRAVITY 1.004 (1.000-1.030); UROBILINOGEN NEG (NEG)
[2016-11-22 19:22] LABS: MANUAL MICROSCOPIC REQUIRED? NO; REVIEW REQ? NO
[2016-11-25] MEDS ORDERED: ESOM20CA PO (11:58)
[2016-11-25] MEDS ORDERED: ROSU20TA PO (11:58)
[2017-02-26] MEDS ORDERED: ACET-1256 PO (06:47)
[2017-02-26] MEDS ORDERED: PRT/40 PO (18:53)
== END 2016-11-22 18:55 | disposition home or self-care (01) ==
LOC: C.EDB 13:58
DX: R10.13 Epigastric pain (principal); D64.9 Anemia, unspecified; I10 Essential (primary) hypertension; I47.1 Supraventricular tachycardia; F17.200 Nicotine dependence, unspecified, uncomplicated; F41.8 Other specified anxiety disorders

== ENCOUNTER 2016-11-25 16:04 | Emergency (ER) | payer OTHER ==
[~2016-11-25] VITALS: Ht 162.6 cm; Wt 99.6 kg
[~2016-11-25 16:04] MED LIST changes: +ESOM20CA PO; +ROSU20TA PO
[2016-11-25 16:10] VITALS: TEMP 37.3; Ht 162.6 cm; Wt 99.6 kg
[2016-11-25] MEDS ORDERED: LXP10 PO (16:41)
[2016-11-25] MEDS ORDERED: OXYC-164 PO (16:41)
[2016-11-25] MEDS ORDERED: SRQ25 PO (16:41)
[2016-11-25] MEDS ORDERED: KLN1X PO (16:41)
[2016-11-25] MEDS ORDERED: TRAZ1TAB5 PO ×2 (16:41)
[2016-11-25] MEDS ORDERED: ALPR-385 PO ×2 (16:41)
[2016-11-25] MEDS ORDERED: SODIUM CHLORIDE 0.9% 1000ML 1,000 ML IV ONE (16:43)
[2016-11-25] MEDS ORDERED: ALUMINUM/MAGNESIUM SUSP 30 ML UDC PO STA (16:43)
[2016-11-25] MEDS ORDERED: LIDOCAINE HCL 2% VISC SOLN 20 ML UDC MT STA (16:43)
[2016-11-25] MEDS ORDERED: SODIUM CHLORIDE 0.9% 1000ML 1,000 ML IV STA (16:43)
[2016-11-25] MEDS ORDERED: METOCLOPRAMIDE HCL INJ 5 MG/ML 2 ML VIAL IM STA (16:43)
[2016-11-25] MEDS ORDERED: HYDROmorphone INJ 2 MG/ML SYR/VIAL IV STA ×2 (16:43→18:20)
--- NOTE | 2016-11-25 16:52 | EMERGENCY ROOM VISIT NOTE ---
History Report prepared by Jerri: Dima Espitia Under the Supervision of: Dr. Cal Johnston M.D. First contact with patient: 16:30 Chief Complaint: ABDOMINAL PAIN Stated Complaint: ABDOMINAL PAIN (FISTULA) Nursing Triage Summary: pt to the ED with c/o abd pain with nausea. she is scheduled for surgery on she states she is here to get something for the pain History of Present Illness The patient is a 46 year old female who presents to the Emergency Room with complaints of persistent abdominal pain that began 4 weeks ago. She rates her pain a 10/10 in severity. The patient was seen in the ED multiple times over the past month with the same symptoms. She has a history of a gastric bypass surgery many years ago. 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 She has been having issues scheduling an appointment with [facility] to have her surgery to fix the fistula. She has been feeling very nauseated with diarrhea. Her diarrhea is intermittent, but it is very dark brown. She is taking Nexium twice a day to help her symptoms. She denies any chills, fevers, hematochezia, or melena. She is taking Tylenol and Oxycodone to alleviate the pain. Sometimes when the patient eats certain foods, it makes her symptoms worse. She is requesting to have someone contact Bariatrics in [place] to expedite her surgery process. Source of History: patient, spouse/significant other Onset: 4 weeks ago Position: abdomen Symptom Intensity: 10/10 Timing: constant Modifying Factors (Worsening): eating Modifying Factors (Relieving): other (Oxycodone) Associated Symptoms: + diarrhea, + nausea, No chills, No fevers Review of Systems See HPI for pertinent positives & negatives. A total of 10 systems reviewed and were otherwise negative. Past Medical & Surgical Medical Problems: (1) Anemia (2) Anxiety (3) Benign hypertension (4) section (5) Depression (6) Disorder of gallbladder (7) gastric bypass (8) Heart disease (9) History of endoscopy (10) MIGRAINE UNSPECIFIED W/O INTRACT MGRN W/O STATUS MIGRAINOSUS (11) Panic disorder (12) PSVT (paroxysmal supraventricular tachycardia) (13) stomach band (14) stomach problems (15) urinary problems Surgical Problems: (1) History of colonoscopy Old medical records were reviewed. Nurse's notes were reviewed and I agree with. Family History Patient reports no known family medical history. Social History Smoking Status: Current Every Day Smoker Alcohol Use: none Drug Use: none Marital Status: Housing Status: lives with family Occupation Status: unemployed Current/Historical Medications Scheduled Alprazolam (Xanax), 0.5 MG PO QD@1200 Alprazolam (Xanax), 1 MG PO QAM Clonazepam (Clonazepam), 0.25 MG PO HS Escitalopram Oxalate (Escitalopram Oxalate), 10 MG PO QAM Esomeprazole Magnesium (Nexium), 20 MG PO BID Quetiapine Fumarate (Quetiapine Fumarate), 25 MG PO TID Rosuvastatin Calcium (Crestor), 20 MG PO HS Trazodone Hcl (Desyrel), 25 MG PO HS Scheduled PRN Oxycodone Hcl (Oxycodone Hcl), 10 MG PO Q8 PRN for Pain Trazodone Hcl (Desyrel), 12.5 MG PO DAILY PRN for Panic Attack Allergies Coded Allergies: Sucralfate (Verified Adverse Reaction, Unknown, Eye irritation., 11/17/16) Reported by PT. Physical Exam Vital Signs Date Time Temp Pulse Resp B/P Pulse Ox O2 Delivery O2 Flow Rate FiO2 11/25/16 18:40 76 20 134/88 98 Room Air 11/25/16 17:06 73 19 127/73 97 11/25/16 16:10 37.3 87 18 126/81 98 Room Air Physical Exam General: Non-ill appearing middle aged female. Well developed well nourished in no acute distress, breathing comfortably on room air. Normal speech. Awake, alert, and oriented x3. HEENT: Normal cephalic atraumatic. Pupils are equal round and reactive to light. Sclera are anicteric. Extraocular movements are intact. Oropharynx is pink with moist mucous membranes. No swelling of the mouth lips or tongue. Neck: Supple with a midline trachea. No meningeal signs or stiffness, no JVD or bruits. No Stridor. Chest: Clear to auscultation bilaterally. No wheezes or rhonchi. No increased work of breathing. Heart: regular rate and rhythm. Abdomen: Soft nontender, nondistended without rebound guarding or rigidity. Extremities: No cyanosis clubbing or edema. No calf tenderness or assymetry Spine/Back. Non tender to palpation. No CVA tenderness Skin: Good turgor without rashes. Neurologic exam: Cranial nerves two through 12 are intact. Motor and sensation are intact and symmetrical throughout. Medical Decision & Procedures Laboratory Results 11/25/16 16:52 Red Blood Count 4.71, Mean Corpuscular Volume 81.7, Mean Corpuscular Hemoglobin 27.2, Mean Corpuscular Hemoglobin Concent 33.2, Mean Platelet Volume 10.6, Neutrophils (%) (Auto) 38.1, Lymphocytes (%) (Auto) 51.8, Monocytes (%) (Auto) 8.4, Eosinophils (%) (Auto) 1.2, Basophils (%) (Auto) 0.3, Neutrophils # (Auto) 2.32, Lymphocytes # (Auto) 3.15, Monocytes # (Auto) 0.51, Eosinophils # (Auto) 0.07, Basophils # (Auto) 0.02 11/25/16 16:52 Test 11/25/16 16:52 White Blood Count 6.08 K/uL (4.8-10.8) Red Blood Count 4.71 M/uL (4.2-5.4) Hemoglobin 12.8 g/dL (12.0-16.0) Hematocrit 38.5 % (37-47) Mean Corpuscular Volume 81.7 fL (80-100) Mean Corpuscular Hemoglobin 27.2 pg (25-34) Mean Corpuscular Hemoglobin Concent 33.2 g/dl (32-36) Platelet Count 269 K/uL (130-400) Mean Platelet Volume 10.6 fL (7.4-10.4) Neutrophils (%) (Auto) 38.1 % Lymphocytes (%) (Auto) 51.8 % Monocytes (%) (Auto) 8.4 % Eosinophils (%) (Auto) 1.2 % Basophils (%) (Auto) 0.3 % Neutrophils # (Auto) 2.32 K/uL (1.4-6.5) Lymphocytes # (Auto) 3.15 K/uL (1.2-3.4) Monocytes # (Auto) 0.51 K/uL (0.11-0.59) Eosinophils # (Auto) 0.07 K/uL (0-0.5) Basophils # (Auto) 0.02 K/uL (0-0.2) RDW Standard Deviation 55.7 fL (36.4-46.3) RDW Coefficient of Variation 18.7 % (11.5-14.5) Immature Granulocyte % (Auto) 0.2 % Immature Granulocyte # (Auto) 0.01 K/uL (0.00-0.02) Red Blood Cell Morphology Unremarkable Anion Gap 9.0 mmol/L (3-11) Est Creatinine Clear Calc Drug Dose 122.8 ml/min Estimated GFR () 122.5 Estimated GFR (Non- 105.7 BUN/Creatinine Ratio 14.0 (10-20) Calcium Level 8.7 mg/dl (8.5-10.1) Total Bilirubin 0.3 mg/dl (0.2-1) Direct Bilirubin < 0.1 mg/dl (0-0.2) Aspartate Amino Transf (AST/SGOT) 7 U/L (15-37) Alanine Aminotransferase (ALT/SGPT) 12 U/L (12-78) Alkaline Phosphatase 54 U/L (45-117) Total Protein 7.8 gm/dl (6.4-8.2) Albumin 3.5 gm/dl (3.4-5.0) Lipase 120 U/L (73-393) Laboratory studies as stated above per my review. Medications Administered Medications (Trade) Dose Ordered Sig/Beth Route Start Time Stop Time Status Last Admin Dose Admin Sodium Chloride 1,000 ml @ 999 mls/hr Q1H1M STAT IV 11/25/16 16:43 11/25/16 17:43 DC 11/25/16 17:01 999 MLS/HR Sodium Chloride (Nss 1000ml) 1,000 ml @ 150 mls/hr Q6H40M ONCE IV 11/25/16 16:43 11/25/16 19:35 DC 11/25/16 17:41 150 MLS/HR Al Hydroxide/Mg Hydroxide (Maalox Susp) 30 ml NOW STAT PO 11/25/16 16:43 11/25/16 16:45 DC 11/25/16 17:00 30 ML Lidocaine HCl (Viscous Lidocaine 2% Soln) 10 ml NOW STAT MT 11/25/16 16:43 11/25/16 16:45 DC 11/25/16 17:00 10 ML Hydromorphone HCl (Dilaudid Inj) 2 mg NOW STAT IV 11/25/16 16:43 11/25/16 16:45 DC 11/25/16 17:03 2 MG Metoclopramide HCl (Reglan Inj) 10 mg NOW STAT IV 11/25/16 16:55 11/25/16 16:57 DC 11/25/16 17:07 10 MG Hydromorphone HCl (Dilaudid Inj) 2 mg NOW STAT IV 11/25/16 18:20 11/25/16 18:21 DC 11/25/16 18:40 2 MG Hydromorphone HCl (Dilaudid Inj) 1 mg NOW STAT IV 11/25/16 18:54 11/25/16 18:55 DC 11/25/16 19:03 1 MG ED Course 1630: Past medical records reviewed. The patient was evaluated in room A12, and a complete history and physical examination were performed. 1643: Ordered Reglan Inj 10 mg IM, Dilaudid Inj 2 mg IV, Lidocaine HCl 10 ml MT , Maalox Susp 30 ml PO, Sodium Chloride 1000 ml @ 150 mls/hr IV, Sodium Chloride 1000 ml @ 999 mls/hr IV. 1655: Ordered Reglan Inj 10 mg IV 1715: The patient is resting comfortably after the medications. 1815: The patient is feeling more pain at this time. I will order her medication. I will also speak with Erin to discuss her future endoscopy. 1820: Ordered Dilaudid Inj 2 mg IV 1840: At this time, I spoke with Dr. Julita [facility]. They recommend increasing the patient's Nexium and start her on Carafate. They say her pain is most likely from her ulcer. They will follow up with the patient within the week. 1850: Upon reevaluation, the patient is resting. I discussed the results and treatment plan with her. She verbalized agreement of the treatment plan. The patient was discharged home. 1915: The patient complained that she did not feel the Dilaudid go into her body , and that she has felt this way before when she has come to this ED. I reassured her that she did in fact receive the Dilaudid, and I have no doubt in my mind that she received the medication via the nurse. Medical Decision Differentials include, but are not limited to; peptic ulcer disease, bowel obstruction, complication from bariatric surgery, infection, and electrolyte or metabolic abnormality. This patient comes in as described above. She was placed in room A 12. She is here for treatment and evaluation of ongoing abdominal pain . She's had this for over a month. She has a history of gastric bypass and apparently has a fistula between her [place] stomach and her bypass area. She comes in asking for IV Dilaudid and Reglan which she had before. She is trying to get in with Erin. She's had no fever or vomiting. IV access established was given Dilaudid 2 mg IV and Reglan 10 mgs IV as well as a GI cocktail. Multiple blood tests was obtained. She was reassessed frequently. She has no white count or fever to suggest infection. She has no acute electrolyte or metabolic abnormality otherwise. I have reviewed her records and she does have an ulcer and this is most likely causing her symptoms . I did discuss the case with the [place] bariatric surgeon. He recommended increasing her proton pump inhibitor , which I do did. He also recommended Carafate which I ordered and the patient told me she is allergic to it so I canceled it. She can use Maalox. She did receive a second dose of IV pain medicine but did not feel it go in and says she 's felt this way before here. She became accusatory about whether she got it. She also claims that this has happened in the past here and she is very paranoid about who pushes her meds. I assured her that she did get the medications and that she may not feel it at all times depending on how rapidly it pushed. I did order 1 final dose of 1 mg of Dilaudid IV. I did call and talk to Erin and they are going to try to get her in sooner. She should return if worsening of symptoms, increasing pain, fever or chills, any new problems. Consults Time Called: 1834 Consulting Physician: Dr. Remi [facility] Returned Call: [phone] We discussed the patient's case. Impression Primary Impression: Abdominal pain Additional Impression: Peptic ulcer disease Scribe Attestation The scribe's documentation has been prepared under my direction and personally reviewed by me in its entirety. I confirm that the note above accurately reflects all work, treatment, procedures, and medical decision making performed by me. Departure Information Dispostion Home / Self-Care Referrals Cal Valdes DO (PCP) Forms Call Back Authorization, HOME CARE DOCUMENTATION FORM, IMPORTANT VISIT INFORMATION Patient Instructions My [facility] Additional Instructions Rest Drink plenty of fluids. Mild diet Use Carafate 4 times a day with meals. Increase your Nexium to 40 mg twice a day. Return if: increasing pain, worsening of symptoms, fever or chills, any new problems or concerns. Follow-up with Erin, they are going to call you this week and getting in for endoscopy. Problem Qualifiers
[2016-11-25] MEDS ORDERED: METOCLOPRAMIDE HCL INJ 5 MG/ML 2 ML VIAL IV STA (16:55)
[2016-11-25 17:05] LABS: HEMATOCRIT 38.5 % (37-47); MEAN CELL VOLUME 81.7 fL (80-100); MEAN CORPUSCULAR HEMOGLOBIN 27.2 pg (25-34); MEAN CORPUSCULAR HGB CONC 33.2 g/dl (32-36); MEAN PLATELET VOLUME 10.6 fL (7.4-10.4); PLATELET COUNT 269 K/uL (130-400); RED BLOOD COUNT 4.71 M/uL (4.2-5.4); WHITE BLOOD COUNT 6.08 K/uL (4.8-10.8)
[2016-11-25 17:23] LABS: ALT/SGPT 12 U/L (12-78); AST/SGOT 7 U/L (15-37); BLOOD UREA NITROGEN 9 mg/dl (7-18); CALCIUM 8.7 mg/dl (8.5-10.1); CARBON DIOXIDE 25 mmol/L (21-32); CHLORIDE 107 mmol/L (98-107); CREATININE 0.65 mg/dl (0.60-1.20); GLUCOSE 78 mg/dl (70-99); POTASSIUM 3.5 mmol/L (3.5-5.1); SODIUM 141 mmol/L (136-145)
[2016-11-25 17:26] LABS: ALKALINE PHOSPHATASE 54 U/L (45-117)
[2016-11-25 17:40] LABS: BASO % 0.3 %; BASO ABS # 0.02 K/uL (0-0.2); COMPLETE YES; EOS % 1.2 %; IG% 0.2 %; LYMPH % 51.8 %; LYMPH ABS # 3.15 K/uL (1.2-3.4); MONO % 8.4 %; NEUT % 38.1 %
[2016-11-25 18:40] VITALS: BP 134/88; PULSE 76; O2SAT 98
[2016-11-25] MEDS ORDERED: SUCR1TAB29 PO (18:43)
[2016-11-25] MEDS ORDERED: HYDROmorphone INJ 1 MG/ML SYR IV STA (18:54)
[2017-02-26] MEDS ORDERED: ACET-1256 PO (06:47)
[2017-02-26] MEDS ORDERED: PRT/40 PO (18:53)
== END 2016-11-25 19:10 | disposition home or self-care (01) ==
LOC: C.EDB 16:05 → C.EDA 19:10
DX: R10.9 Unspecified abdominal pain (principal); K27.9 Peptic ulcer, site unspecified, unspecified as acute or chronic, without hemorrhage or perforation; R11.0 Nausea; R19.7 Diarrhea, unspecified; I10 Essential (primary) hypertension; F41.9 Anxiety disorder, unspecified; F32.9 Major depressive disorder, single episode, unspecified; Z79.899 Other long term (current) drug therapy; Z87.19 Personal history of other diseases of the digestive system; Z98.84 Bariatric surgery status; F17.200 Nicotine dependence, unspecified, uncomplicated

== ENCOUNTER 2016-11-29 10:30 | Emergency (ER) | payer OTHER ==
[~2016-11-29] VITALS: Ht 162.6 cm; Wt 100.3 kg
[~2016-11-29 10:30] MED LIST changes: +ALPR-385 PO; -ALPR-411 PO; -ALPR1TAB3 PO; -CLON0.5T3 PO; -ESCI10TA17 PO; +KLN1X PO; +LXP10 PO; +OXYC-164 PO; -OXYC1TAB3 PO; -QUET1TAB30 PO; -QUET1TAB32 PO; +SRQ25 PO; +TRAZ1TAB5 PO; -TRAZ50TA35 PO
[2016-11-29 10:36] VITALS: Ht 162.6 cm; Wt 100.3 kg
[2016-11-29] MEDS ORDERED: LIDOCAINE HCL 2% VISC SOLN 20 ML UDC MT STA (13:06)
[2016-11-29] MEDS ORDERED: ALUMINUM/MAGNESIUM SUSP 30 ML UDC PO STA (13:06)
[2016-11-29] MEDS ORDERED: HYDROmorphone INJ 2 MG/ML SYR/VIAL IV STA (13:30)
[2016-11-29] MEDS ORDERED: ONDANSETRON INJ 2 MG/ML 2 ML VIAL IV STA (13:35)
[2016-11-29 13:54] LABS: URINE APPEARANCE CLEAR (CLEAR); URINE BILIRUBIN NEG (NEG); URINE COLOR YELLOW; URINE NITRITE NEG (NEG); URINE PH 6.5 (4.5-7.5); UROBILINOGEN NEG (NEG); ZZUR CULT IF INDIC CLEAN CATCH NO
[2016-11-29 14:00] LABS: BASO % 0.3 %; BASO ABS # 0.02 K/uL (0-0.2); COMPLETE YES; EOS % 1.1 %; HEMATOCRIT 36.5 % (37-47); IG% 0.2 %; LYMPH % 47.1 %; LYMPH ABS # 2.97 K/uL (1.2-3.4); MEAN CELL VOLUME 83.7 fL (80-100); MEAN CORPUSCULAR HEMOGLOBIN 27.8 pg (25-34); MEAN CORPUSCULAR HGB CONC 33.2 g/dl (32-36); MEAN PLATELET VOLUME 11.2 fL (7.4-10.4); MONO % 8.4 %; NEUT % 42.9 %; PLATELET COUNT 268 K/uL (130-400); RED BLOOD COUNT 4.36 M/uL (4.2-5.4); WHITE BLOOD COUNT 6.31 K/uL (4.8-10.8)
[2016-11-29 14:01] LABS: MANUAL MICROSCOPIC REQUIRED? NO; REVIEW REQ? NO
--- NOTE | 2016-11-29 14:08 | Pharmacy Progress Note ---
ED Pharmacist Progress Note Date of Service: Nov 29, 2016. Pharmacy note to confirm medication administration Per RN (Rosalee's) nursing note: Introduced myself to patient explained understood situation that occurred over the weekend with patient and 's accusations regarding "not receiving medications" patient states "oh yes sometimes I come and don't receive my meds, this happens with 5 or 6 nurses, so I usually have to tell doctor and get more dilaudid". Explained to her that each nurse that cares for her are highly professional individuals and accusations of this magnitude were seriuos. I instructed her who her nurse was and if the she was she was to receive any medications today, her nurse would be accompanied by myself or the ED pharmicist to avoid this situation. Patient agreed to this. Patient was prescribed Dilaudid 2 mg IV x1. I confirmed the full dose was administered at ~1400 as follows: I accompanied RN into patient room. I confirmed correct drug and dose. Carpuject was opened in my presence. Confirmed full amount was drawn up. Confirmed full amount was administered and flushed with saline afterwards.
[2016-11-29 14:10] LABS: BUN/CREATININE RATIO 11.2 (10-20); CALCIUM 9.1 mg/dl (8.5-10.1); CREATININE 0.65 mg/dl (0.60-1.20); POTASSIUM 3.8 mmol/L (3.5-5.1)
[2016-11-29] MEDS ORDERED: ALPRAZOLAM 0.5 MG TAB PO STA (14:21)
--- NOTE | 2016-11-29 14:29 | EMERGENCY ROOM VISIT NOTE ---
History First contact with patient: 12:56 Chief Complaint: BACK PAIN Stated Complaint: BACK PAIN - ADOMINAL PAIN History of Present Illness The patient is a 46 year old female who presents to the Emergency Room via private vehicle accompanied by male with complaints of "back pain-abdominal pain ". The patient states that she has a history of chronic abdominal pain, and today notes that the abdominal pain does feel better. She states she is here today because for the past several months she's been experiencing pain in both legs, and back pain with a known ailment at L4-L5. 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 She states she is here because she now has worsening pain in the low back, and if she stands for long periods of time her legs hurt and the low back also hurts. She also states that for the last few months she has been coughing, and now her lungs hurt were when she coughs. She again states that the abdominal pain does feel better today but the back does hurt. She then states that the back pain started one month ago, and has been worsening for the past few days. She states she is unable to stand because the pain, and has had fecal incontinence. She also notes slight numbness in the legs, left worse than right. She has undergone pain management in the past of which injections have been performed. She denies any back surgeons. She also notes her stool has been dark, And notes that she does have a history of ulcers of which she is being treated. There is associated chills, shortness of breath with steps. She denies any fevers, chest pain, urinary symptoms, falls or trauma to the back. She denies any numbness or tingling in the genital region. There is no urinary incontinence. She requests 2 mg of Dilaudid IV x 2 as well as a GI cocktail. Review of Systems A complete 10-point Review of Systems was discussed with the patient, with pertinent positives and negatives listed in the History of Present Illness. All remaining Review of Systems questions can be considered negative unless otherwise specified. Past Medical/Surgical History Medical Problems: (1) Anemia (2) Anxiety (3) Benign hypertension (4) section (5) Depression (6) Disorder of gallbladder (7) gastric bypass (8) Heart disease (9) History of endoscopy (10) MIGRAINE UNSPECIFIED W/O INTRACT MGRN W/O STATUS MIGRAINOSUS (11) Panic disorder (12) PSVT (paroxysmal supraventricular tachycardia) (13) stomach band (14) stomach problems (15) urinary problems Surgical Problems: (1) History of colonoscopy Family History Patient reports no known family medical history. Social History Smoking Status: Current Every Day Smoker Alcohol Use: none Drug Use: none Marital Status: Housing Status: lives with family Occupation Status: unemployed Current/Historical Medications Scheduled Alprazolam (Xanax), 0.5 MG PO QD@1200 Alprazolam (Xanax), 1 MG PO QAM Clonazepam (Clonazepam), 0.25 MG PO HS Escitalopram Oxalate (Escitalopram Oxalate), 10 MG PO QAM Esomeprazole Magnesium (Nexium), 20 MG PO BID Quetiapine Fumarate (Quetiapine Fumarate), 25 MG PO TID Rosuvastatin Calcium (Crestor), 20 MG PO HS Trazodone Hcl (Desyrel), 25 MG PO HS Scheduled PRN Oxycodone Hcl (Oxycodone Hcl), 10 MG PO Q8 PRN for Pain Trazodone Hcl (Desyrel), 12.5 MG PO DAILY PRN for Panic Attack Allergies Coded Allergies: Sucralfate (Verified Adverse Reaction, Unknown, Eye irritation., 11/29/16) Reported by PT. Physical Exam Vital Signs Date Time Temp Pulse Resp B/P Pulse Ox O2 Delivery O2 Flow Rate FiO2 11/29/16 17:06 74 16 101/50 94 Room Air 11/29/16 15:39 82 98/64 97 11/29/16 13:50 81 18 122/71 99 Room Air 11/29/16 10:36 36.9 81 18 118/73 99 Room Air Physical Exam VITAL SIGNS - Vital signs and nursing notes were reviewed. The patient is afebrile, normotensive, non-tachycardic and is saturating well on room air 99%. GENERAL -46-year-old female appearing her stated age who is in no acute distress. Communicates well with provider and answers questions appropriately. SKIN - Without rashes. No petechial rashes. HEAD - NC/AT. EYES - Sclera anicteric. Palpebral conjunctiva pink and moist with no injection noted. EARS - No deformities of external structures noted on gross examination bilaterally. NOSE - Midline and without cyanosis. No epistaxis or purulent drainage noted. MOUTH/OROPHARYNX - Without perioral cyanosis. Buccal mucosa pink and moist and without leukoplakia. LUNGS - Chest wall symmetric without accessory muscle use, intercostals retractions, or central cyanosis. Normal vesicular breath sounds CTA B/L. No wheezes, rales, or rhonchi appreciated. CARDIAC - RRR with S1/S2. No murmur, rubs, or gallops appreciated. ABDOMEN - Abdominal contour without pulsations or visible masses. BS normoactive all four quadrants. Mild abdominal generalized tenderness, no palpable masses, hepatosplenomegaly, or ascites noted. EXTREMITIES - No clubbing or peripheral cyanosis. No pretibial edema present. + 5/5 strength noted in UE/LE bilaterally. NEUROLOGIC - Cranial nerves II through XII grossly intact. Sensory intact to light touch throughout. Unable to elicit patellar reflexes. PSYCH - A&Ox3 and cooperates fully with examiner. Pt is very pleasant and interacts well with examiner. Medical Decision & Procedures ER Provider Diagnostic Interpretation: CHEST ONE VIEW PORTABLE CLINICAL HISTORY: Cough. COMPARISON STUDY: Chest radiograph January 13, 2016. FINDINGS: Lung volumes are normal. Lungs are clear. There is no pneumothorax or pleural effusion. Cardiac size is normal. Mediastinal contours are normal. There is no evidence of pulmonary edema. IMPRESSION: No acute cardiopulmonary findings. Electronically signed by: Will Sotomayor M.D. 11/29/2016 2:58 PM Dictated Date/Time: 11/29/2016 2:58 PM MRI OF THE LUMBAR SPINE WITHOUT IV CONTRAST CLINICAL HISTORY: Low back pain. Lower extremity weakness. Fecal incontinence. COMPARISON STUDY: MRI of the lumbar spine dated 07/17/2014. TECHNIQUE: MRI of the lumbar spine is performed utilizing various T1 and T2-weighted sequences in the axial and sagittal planes. IV contrast was not administered for this examination. FINDINGS: Lumbar spine: Vertebral body height and alignment are maintained throughout the lumbar spine. No destructive bony lesion is seen. The transverse and spinous processes are intact as imaged. There is no evidence of spondylolysis. A hemangioma is noted in the body of L4. Intervertebral discs: There is mild degenerative disc desiccation in the lower lumbar spine. The disc heights appear preserved. Spinal cord: Visualized spinal cord is normal in morphology and signal intensity. The conus medullaris terminates at the level of L1. The nerve roots of the cauda equina are normal in morphology. L1-L2: Unremarkable. L2-L3: Unremarkable. L3-L4: Unremarkable. L4-L5: There is a posterior disc bulge with annular fissure. In conjunction with hypertrophy of the ligamentum flavum, there is mild acquired compromise of the central canal at this level. The minimum AP diameter measures up to 7.5 mm. There is bilateral subarticular stenosis with possible impingement of the exiting bilateral L4 and the transiting bilateral L5 nerve roots. L5-S1: Central canal is clear. Facet arthropathy causes minimal bilateral neural foraminal narrowing. Sacrum: Visualized sacrum is normal in morphology and signal intensity. Soft tissues: The paraspinous soft tissues are normal as visualized. The partially imaged retroperitoneal structures are grossly normal but incompletely assessed. IMPRESSION: 1. There is a posterior disc bulge at L4-L5, which causes mild acquired compromise of the central canal. This may impinge on exiting bilateral L4 and transiting bilateral L5 nerve roots. 2. No significant degenerative changes seen at the additional lumbar levels. 3. No destructive bony process is seen. Dictated: 11/29/2016 4:29 PM Transcribed: 11/29/2016 4:55 PM [email or web address] Electronically signed by: Mariano Jimenez M.D. 11/29/2016 4:56 PM Dictated Date/Time: 11/29/2016 4:29 PM Laboratory Results 11/29/16 13:40 Red Blood Count 4.36, Mean Corpuscular Volume 83.7, Mean Corpuscular Hemoglobin 27.8, Mean Corpuscular Hemoglobin Concent 33.2, Mean Platelet Volume 11.2, Neutrophils (%) (Auto) 42.9, Lymphocytes (%) (Auto) 47.1, Monocytes (%) (Auto) 8.4, Eosinophils (%) (Auto) 1.1, Basophils (%) (Auto) 0.3, Neutrophils # (Auto) 2.71, Lymphocytes # (Auto) 2.97, Monocytes # (Auto) 0.53, Eosinophils # (Auto) 0.07, Basophils # (Auto) 0.02 11/29/16 13:40 Test 11/29/16 13:10 11/29/16 13:40 Urine Color YELLOW Urine Appearance CLEAR (CLEAR) Urine pH 6.5 (4.5-7.5) Urine Specific Driscoll 1.000 (1.000-1.030) Urine Protein NEG (NEG) Urine Glucose (UA) NEG (NEG) Urine Ketones NEG (NEG) Urine Occult Blood NEG (NEG) Urine Nitrite NEG (NEG) Urine Bilirubin NEG (NEG) Urine Urobilinogen NEG (NEG) Urine Leukocyte Esterase NEG (NEG) White Blood Count 6.31 K/uL (4.8-10.8) Red Blood Count 4.36 M/uL (4.2-5.4) Hemoglobin 12.1 g/dL (12.0-16.0) Hematocrit 36.5 % (37-47) Mean Corpuscular Volume 83.7 fL (80-100) Mean Corpuscular Hemoglobin 27.8 pg (25-34) Mean Corpuscular Hemoglobin Concent 33.2 g/dl (32-36) Platelet Count 268 K/uL (130-400) Mean Platelet Volume 11.2 fL (7.4-10.4) Neutrophils (%) (Auto) 42.9 % Lymphocytes (%) (Auto) 47.1 % Monocytes (%) (Auto) 8.4 % Eosinophils (%) (Auto) 1.1 % Basophils (%) (Auto) 0.3 % Neutrophils # (Auto) 2.71 K/uL (1.4-6.5) Lymphocytes # (Auto) 2.97 K/uL (1.2-3.4) Monocytes # (Auto) 0.53 K/uL (0.11-0.59) Eosinophils # (Auto) 0.07 K/uL (0-0.5) Basophils # (Auto) 0.02 K/uL (0-0.2) RDW Standard Deviation 58.2 fL (36.4-46.3) RDW Coefficient of Variation 19.1 % (11.5-14.5) Immature Granulocyte % (Auto) 0.2 % Immature Granulocyte # (Auto) 0.01 K/uL (0.00-0.02) Anion Gap 8.0 mmol/L (3-11) Est Creatinine Clear Calc Drug Dose 123.2 ml/min Estimated GFR () 122.5 Estimated GFR (Non- 105.7 BUN/Creatinine Ratio 11.2 (10-20) Calcium Level 9.1 mg/dl (8.5-10.1) Medications Administered Medications (Trade) Dose Ordered Sig/Beth Route Start Time Stop Time Status Last Admin Dose Admin Al Hydroxide/Mg Hydroxide (Maalox Susp) 30 ml NOW STAT PO 11/29/16 13:06 11/29/16 13:18 DC 11/29/16 13:54 30 ML Lidocaine HCl (Viscous Lidocaine 2% Soln) 20 ml NOW STAT MT 11/29/16 13:06 11/29/16 13:18 DC 11/29/16 13:55 10 ML Hydromorphone HCl (Dilaudid Inj) 2 mg NOW STAT IV 11/29/16 13:30 11/29/16 13:32 DC 11/29/16 13:56 2 MG Ondansetron HCl (Zofran Inj) 4 mg NOW STAT IV 11/29/16 13:35 11/29/16 13:36 DC 11/29/16 13:55 4 MG Alprazolam (Xanax Tab) 0.5 mg NOW STAT PO 11/29/16 14:21 11/29/16 14:22 DC 11/29/16 15:33 0.5 MG Hydromorphone HCl (Dilaudid Inj) 1 mg NOW STAT IV 11/29/16 15:28 11/29/16 15:29 DC 11/29/16 15:33 1 MG Medical Decision Patient was seen and evaluated as above. After obtaining a thorough history and physical examination IV access was initiated, and the above workup was completed. I was concerned initially as the patient requested 2 mg of Dilaudid IV 2 for her pain as well as a GI cocktail. The concern arose from the immediate request for narcotic pain medication of that strength. He was also brought to my attention by both the in-house pharmacist, and RN supervisor keymodule assembly of the emergency department at the patient's previous visit has many flags for narcotic seeking behavior. Upon my examination the patient does appear to be in pain, and is subjectively stating symptoms of cauda equina syndrome. I did feel that an emergent MRI was necessary. As the patient was waiting for the MRI she notes that she did feel anxious therefore her noon dose of Xanax was provided to her. In review of her blood work, the CBC reveals no concerning leukocytosis or anemia. PRP show slight elevation of chloride, otherwise unremarkable. The urinalysis was unremarkable. The MRI shows a posterior disc bulge with mild compromise of the central canal with potential impingement on the exiting bilateral L4 and L5 nerve root. I discussed this with the patient as well as her laboratory findings and explained that this may be causing her radicular symptoms and feel that follow-up with a seafood specialist would be appropriate. The case was also discussed thoroughly with my attending. The patient was provided the contact information for a seafood specialist and was told to call them first thing tomorrow morning. She did seem happy with plan of care, she was also given 1 more milligram of Dilaudid IV for her pain. Throughout her stay she did appear to be resting comfortably after receiving the pain medication. I did have a discussion with her prior to discharge regarding the amount of narcotics in which she was receiving. I informed her that in today's date age there is a concern for drug-seeking behavior that is ever more present, and that providing large doses of narcotics such as Dilaudid raises concern. I did however state that we are more than happy to help her in any way shape or form and that we are here 24 7. Her chest x-ray was unremarkable, I do not suspect any emergent cardiac or pulsatile neurological causes at this time. She again is to follow up with her family doctor and seafood specialist by calling them first thing tomorrow morning. She was educated upon management today's findings, had questions answered prior to discharge, was educated upon worrisome symptoms in which to return, and was discharged home in good condition. Review of the [place] drug monitoring system does indicate a current prescription for oxycodone. In the evaluation and treatment of this patient the following differential diagnoses were entertained: Cauda equina syndrome, lumbar sprain, lumbar strain , herniated disc, among others. [place] Drug Monitoring Program Search Results: patient reviewed within database, see additional documentation Impression Primary Impression: Bulging lumbar disc Additional Impression: Radicular low back pain Departure Information Dispostion Home / Self-Care Condition GOOD Referrals Cal Valdes DO (PCP) Kristopher Monique D.O. Patient Instructions My [facility] Additional Instructions You have been treated in the Emergency Department for Back Pain. You have received pain medicine in the emergency department which impairs your ability to operate a vehicle. It is illegal for you to drive after receiving these medicines. For pain control, you can use the following [id number] medicines (if >12 yo): - Regular strength (325mg/tab) Tylenol (acetaminophen) 2 tabs every 4-6 hours as needed. Do not exceed 12 tablets in a 24 hour period. Avoid taking more than 4 grams (4000 mg) of Tylenol per day. This includes any other sources of acetaminophen you may take on a regular basis. If this is an acute injury, ice can be applied to the area of pain for the first 3 days to help decrease pain and inflammation. After the first 3 days, a heating pad can be used over the area for continued soothing relief. You should schedule a follow-up appointment in 2-3 days with your Primary Care Provider for further evaluation and treatment of your back pain and also please call the seafood specialist listed above (Dr. Monique). Return to the Emergency Department if your current symptoms worsen despite treatment course outlined above, or if you develop any of the following symptoms : intractable pain despite aforementioned treatment course, loss of control of your bowel or bladder, numbness or tingling in your groin, or development of a fever. Please return to the emergency department with any new/concerning symptoms. Problem Qualifiers
--- NOTE | 2016-11-29 14:59 | DIAGNOSTIC IMAGING REPORT ---
CHEST ONE VIEW PORTABLE CLINICAL HISTORY: Cough. COMPARISON STUDY: Chest radiograph January 13, 2016. FINDINGS: Lung volumes are normal. Lungs are clear. There is no pneumothorax or pleural effusion. Cardiac size is normal. Mediastinal contours are normal. There is no evidence of pulmonary edema. IMPRESSION: No acute cardiopulmonary findings. Electronically signed by: Will Sotomayor M.D. 11/29/2016 2:58 PM Dictated Date/Time: 11/29/2016 2:58 PM
[2016-11-29] MEDS ORDERED: HYDROmorphone INJ 1 MG/ML SYR IV STA (15:28)
--- NOTE | 2016-11-29 16:56 | DIAGNOSTIC IMAGING REPORT ---
MRI OF THE LUMBAR SPINE WITHOUT IV CONTRAST CLINICAL HISTORY: Low back pain. Lower extremity weakness. Fecal incontinence. COMPARISON STUDY: MRI of the lumbar spine dated 07/17/2014. TECHNIQUE: MRI of the lumbar spine is performed utilizing various T1 and T2-weighted sequences in the axial and sagittal planes. IV contrast was not administered for this examination. FINDINGS: Lumbar spine: Vertebral body height and alignment are maintained throughout the lumbar spine. No destructive bony lesion is seen. The transverse and spinous processes are intact as imaged. There is no evidence of spondylolysis. A hemangioma is noted in the body of L4. Intervertebral discs: There is mild degenerative disc desiccation in the lower lumbar spine. The disc heights appear preserved. Spinal cord: Visualized spinal cord is normal in morphology and signal intensity. The conus medullaris terminates at the level of L1. The nerve roots of the cauda equina are normal in morphology. L1-L2: Unremarkable. L2-L3: Unremarkable. L3-L4: Unremarkable. L4-L5: There is a posterior disc bulge with annular fissure. In conjunction with hypertrophy of the ligamentum flavum, there is mild acquired compromise of the central canal at this level. The minimum AP diameter measures up to 7.5 mm. There is bilateral subarticular stenosis with possible impingement of the exiting bilateral L4 and the transiting bilateral L5 nerve roots. L5-S1: Central canal is clear. Facet arthropathy causes minimal bilateral neural foraminal narrowing. Sacrum: Visualized sacrum is normal in morphology and signal intensity. Soft tissues: The paraspinous soft tissues are normal as visualized. The partially imaged retroperitoneal structures are grossly normal but incompletely assessed. IMPRESSION: 1. There is a posterior disc bulge at L4-L5, which causes mild acquired compromise of the central canal. This may impinge on exiting bilateral L4 and transiting bilateral L5 nerve roots. 2. No significant degenerative changes seen at the additional lumbar levels. 3. No destructive bony process is seen. Dictated: 11/29/2016 4:29 PM Transcribed: 11/29/2016 4:55 PM [email or web address] Electronically signed by: Mariano Jimenez M.D. 11/29/2016 4:56 PM Dictated Date/Time: 11/29/2016 4:29 PM
[2016-11-29 17:06] VITALS: BP 101/50; PULSE 74; O2SAT 94
[2017-02-26] MEDS ORDERED: ACET-1256 PO (06:47)
[2017-02-26] MEDS ORDERED: PRT/40 PO (18:53)
== END 2016-11-29 17:42 | disposition home or self-care (01) ==
LOC: C.EDB 10:32 → C.EDA 17:42
DX: M51.26 Other intervertebral disc displacement, lumbar region (principal); M54.16 Radiculopathy, lumbar region; R10.9 Unspecified abdominal pain; K63.2 Fistula of intestine; D64.9 Anemia, unspecified; I10 Essential (primary) hypertension; F32.9 Major depressive disorder, single episode, unspecified; F41.0 Panic disorder [episodic paroxysmal anxiety]; I47.1 Supraventricular tachycardia; F17.200 Nicotine dependence, unspecified, uncomplicated; Z98.84 Bariatric surgery status

== ENCOUNTER 2016-12-05 16:41 | Emergency (ER) | payer OTHER ==
[~2016-12-05] VITALS: Ht 162.6 cm; Wt 99.4 kg
[2016-12-05 16:53] VITALS: TEMP 36.8; Ht 162.6 cm; Wt 99.4 kg
[2016-12-05 17:38] VITALS: BP 127/86; PULSE 88; O2SAT 98
--- NOTE | 2016-12-05 23:51 | EMERGENCY ROOM VISIT NOTE ---
History Report prepared by Jerri: Yuliya Byers Under the Supervision of: Dr. Migue Fregoso M.D. First contact with patient: 17:10 Chief Complaint: BACK PAIN Stated Complaint: BACK PAIN, ABDOMINAL PAIN History of Present Illness The patient is a 46 year old female who presents to the Emergency Room with complaints of persistent back pain which started 1 month ago. She is seeking pain control for her chronic back pain. She has had an MRI which found that she has a bulging disc. She has an appointment to follow with specialists next week , but came to the ED because her pain was unmanageable. She reports that she cannot stand for more than a couple minutes. She takes Tylenol and oxycodone at home, but is not experiencing consistent relief. She also has abdominal pain. 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 She has an appointment to follow up next week. She has gained 20 pounds in the last month. She reports having diarrhea and chills. She denies any constipation, fever, rash , or new swelling of the legs. Source of History: patient Onset: 1 month ago Position: back Timing: other (persistent) Modifying Factors (Relieving): tylenol (inconsistent relief), narcotics ( inconsistent relief) Associated Symptoms: + chills, + diarrhea, No fevers Note: Pt denies constipation, rash, swelling of the legs. Review of Systems See HPI for pertinent positives & negatives. A total of 10 systems reviewed and were otherwise negative. Past Medical & Surgical Medical Problems: (1) Anemia (2) Anxiety (3) Benign hypertension (4) section (5) Depression (6) Disorder of gallbladder (7) gastric bypass (8) Heart disease (9) History of endoscopy (10) MIGRAINE UNSPECIFIED W/O INTRACT MGRN W/O STATUS MIGRAINOSUS (11) Panic disorder (12) PSVT (paroxysmal supraventricular tachycardia) (13) stomach band (14) stomach problems (15) urinary problems Surgical Problems: (1) History of colonoscopy Family History Patient reports no known family medical history. Social History Smoking Status: Current Every Day Smoker Alcohol Use: none Drug Use: none Marital Status: Housing Status: lives with family Occupation Status: unemployed Current/Historical Medications Scheduled Alprazolam (Xanax), 0.5 MG PO QD@1200 Alprazolam (Xanax), 1 MG PO QAM Clonazepam (Clonazepam), 0.25 MG PO HS Escitalopram Oxalate (Escitalopram Oxalate), 10 MG PO QAM Esomeprazole Magnesium (Nexium), 20 MG PO BID Quetiapine Fumarate (Quetiapine Fumarate), 25 MG PO TID Rosuvastatin Calcium (Crestor), 20 MG PO HS Trazodone Hcl (Desyrel), 25 MG PO HS Scheduled PRN Oxycodone Hcl (Oxycodone Hcl), 10 MG PO Q8 PRN for Pain Trazodone Hcl (Desyrel), 12.5 MG PO DAILY PRN for Panic Attack Allergies Coded Allergies: Sucralfate (Verified Adverse Reaction, Unknown, Eye irritation., 11/29/16) Reported by PT. Physical Exam Vital Signs Date Time Temp Pulse Resp B/P Pulse Ox O2 Delivery O2 Flow Rate FiO2 12/05/16 17:38 88 16 127/86 98 12/05/16 16:53 36.8 88 16 127/86 98 Room Air Physical Exam GENERAL: Patient is well appearing and in no acute distress. HEENT: No acute trauma, normocephalic atraumatic, mucous membranes moist, no nasal congestion, no scleral icterus. NECK: No stridor, no adenopathy, no meningismus, trachea is midline. LUNGS: No dyspnea. Clear to auscultation and equal bilaterally. No wheeze, no rhonchi. HEART: Regular rate and rhythm. No murmurs, rubs, gallops appreciated. ABDOMEN: Soft, bowel sounds positive, no masses appreciated, no peritonitis. Vague tenderness over entire abdomen nonspecific. BACK: Vague tenderness over entire lower back. EXTREMITIES: Normal motion all extremities, no cyanosis, no edema. 5/5 strength in distal legs and extremities. NEUROLOGIC: Alert and oriented, no acute motor or sensory deficits, cranial nerves grossly intact. Chronic left facial weakness. SKIN: No rash, no jaundice, no diaphoresis. Medical Decision & Procedures ED Course 1713: The patient was evaluated in room C2. A complete history and physical exam was performed. 1734: Nursing informed me that the patient is leaving against medical advice. Medical Decision 46 yr old female arrives for evaluation of her abdominal and back pain. She states very clearly this is SAME pain she has been having for last few weeks that have resulted in multiple ED visits. She has had multiple labs, CT abdo, MRI lumbar spine all with only mild findings. There is clear documentation of concerns for drug seeking behavior. Patient evaluated with no specific findings. She does not have surgical abdomen and does not have any evidence of spinal cord issue. I offered to recheck labs and even if necessary do further imaging. I made it clear from the beginning my concerns that she has narcotics at home, comes in with recurrent pain complaints requesting many rounds narcotics, has made complaints about not getting narcotics in past and she admits she has not discussed her symptoms which have been ongoing for quite some time with her PCP. With this in mind I respectfully made patient aware that I do not feel comfortable giving her narcotics for her chronic symptoms. I went back to place orders, then while seeing other patient's I was made aware patient was leaving and prior to my being able to go discuss this with her she signed out AMA. Impression Primary Impression: Chronic abdominal pain Additional Impressions: Chronic pain syndrome Chronic back pain Scribe Attestation The scribe's documentation has been prepared under my direction and personally reviewed by me in its entirety. I confirm that the note above accurately reflects all work, treatment, procedures, and medical decision making performed by me. Departure Information Referrals No Doctor, Assigned (PCP) Patient Instructions My [facility] Problem Qualifiers Additional Impressions: Chronic back pain Back pain location: low back pain Back pain laterality: bilateral Sciatica presence: without sciatica Qualified Codes: M54.5 - Low back pain; G89.29 - Other chronic pain
[2017-02-26] MEDS ORDERED: ACET-1256 PO (06:47)
[2017-02-26] MEDS ORDERED: PRT/40 PO (18:53)
== END 2016-12-05 17:38 | disposition left against medical advice (07) ==
LOC: C.EDB 16:42 → C.EDC 17:38
DX: R10.9 Unspecified abdominal pain (principal); G89.29 Other chronic pain; G89.4 Chronic pain syndrome; M54.9 Dorsalgia, unspecified; D64.9 Anemia, unspecified; I10 Essential (primary) hypertension; F32.9 Major depressive disorder, single episode, unspecified; F41.0 Panic disorder [episodic paroxysmal anxiety]; I47.1 Supraventricular tachycardia; F17.200 Nicotine dependence, unspecified, uncomplicated; Z98.84 Bariatric surgery status

== ENCOUNTER → 2016-12-21 | Outpatient (CLI) | payer OTHER ==
[~2016-12-21] MED LIST changes: +ACET-1256 PO; +BUSPAR PO; +CITA10TA4 PO; +DPKSR/500 PO; +DSY100 PO; +HYDR-4079 PO; +PANT40TA2 PO; +QUET1TAB32 PO; +QUET5TAB PO; +TRAZ-119 PO; +TRAZ-120 PO; -TRAZ1TAB5 PO; +TRAZ50TA35 PO
--- NOTE | 2016-12-21 13:04 | MAMMOGRAPHY REPORT ---
BILATERAL DIGITAL DIAGNOSTIC MAMMOGRAM TOMOSYNTHESIS WITH CAD AND TARGETED LEFT ULTRASOUND: 12/21/2016 CLINICAL HISTORY: The patient reports an area of left breast pain for approximately 3 months. Histo ry of a prior excisional biopsy in the left breast which yielded atypia. She denies a palpable lump . TECHNIQUE: Breast tomosynthesis in addition to standard 2D mammography was performed. Current study was also evaluated with a Computer Aided Detection (CAD) system. Bilateral CC and MLO 2-D and jenni synthesis images were obtained. COMPARISON: Comparison is made to exams dated: 01/26/2016 breast MRI, 11/30/2015 mammogram, 01/12/2015 mammogram, 05/28/2014 ultrasound, 05/28/2014 mammogram, and 05/20/2014 mammogram - [facility]. BREAST COMPOSITION: There are scattered areas of fibroglandular density in both breasts. FINDINGS: A triangle marker maier the site of pain in the left upper outer quadrant. There are no suspicious masses, calcifications, or areas of architectural distortion noted in either breast mammo graphically. There has been no significant interval change compared to prior exams. A linear scar marker denotes a scar in the left upper outer quadrant from prior excisional biopsy. A left medial breast asymmetry seen on the cc view is stable dating back to at least the 2011 exam. Targeted ultrasound was performed of the areas of pain pointed out by the patient, involving the lef t superior breast from approximately 11 to 1:00, with the pain most prominent in the periareolar reg ion during scanning. Sonographically normal tissue is seen in these regions, without evidence of a mass or other suspicious sonographic abnormality. IMPRESSION: ACR BI-RADS CATEGORY 2: BENIGN, TARGETED ULTRASOUND ACR BI-RADS CATEGORY 2: BENIGN No suspicious mammographic or sonographic abnormality to explain left breast pain. There is no mamm ographic or targeted sonographic evidence of malignancy. Recommend clinical follow-up for left delroy st pain, and recommend routine bilateral screening mammograms in one year. The patient has been arcenio bally notified of the results. Approximately 10% of breast cancers are not detected with mammography. A negative mammographic repor t should not delay biopsy if a clinically suggestive mass is present. Kena Medina M.D. /:12/21/2016 11:58:34 Manager Beauty: Avril Mcgrath, [facility] letter sent: Normal 09/17 BI-RADS Code: ACR BI-RADS Category 2: Benign Ultrasound BI-RADS: ACR BI-RADS Category 2: Benign
== END | disposition home or self-care (01) ==
LOC: C.MAMM 11:29
PROVIDERS: ATTEND Surgery
DX: N64.4 Mastodynia (principal)

== ENCOUNTER 2016-12-24 06:26 | Day surgery (SDC) | payer OTHER ==
[~2016-12-24] VITALS: Ht 162.6 cm; Wt 95.3 kg
[~2016-12-24 06:26] MED LIST changes: -ACET-1256 PO; -BUSPAR PO; -CITA10TA4 PO; -DPKSR/500 PO; -DSY100 PO; -HYDR-4079 PO; -PANT40TA2 PO; -QUET1TAB32 PO; -QUET5TAB PO; +SODIUM CHLORIDE 0.9% 1000ML IV SCH; -TRAZ-119 PO; -TRAZ50TA35 PO
[2016-12-24 06:48] VITALS: BP 114/75; PULSE 87; TEMP 36.7; O2SAT 97; Ht 162.6 cm; Wt 95.3 kg
[2016-12-24] MEDS ORDERED: FENTANYL CITRATE INJ 50 MCG/1 ML 2 ML VIAL ONE (07:29)
[2016-12-24] MEDS ORDERED: MIDAZOLAM HCL 1 MG/ML 2ML VIAL ONE ×4 (07:29→08:58)
[2016-12-24 07:35] VITALS: BP 114/75; PULSE 87; TEMP 36.7; O2SAT 97
[2016-12-24] MEDS ORDERED: BUPIVACAINE/EPINEPHRINE 0.5% MPF 1:200,000 30 ML VIAL ONE (07:37)
[2016-12-24] MEDS ORDERED: LIDOCAINE HCL 1% 20 ML VIAL ONE (07:38)
[2016-12-24] MEDS: CEFAZOLIN 2000 MG/60 ML D5W 60 ML IV SCH ×2 (08:00→08:17)
--- NOTE | 2016-12-24 08:08 | History and Physical ---
History & Physical Date Dec 24, 2016. Chief Complaint Lack of IV access History of Present Illness The patient is a 46 year old female with a panic disorder who needs routine iron infusion for anemia. She had no venous access and needs a port placement. Vitals Vital Signs Past 12 Hours Date Time Temp Pulse Resp B/P Pulse Ox O2 Delivery O2 Flow Rate FiO2 12/24/16 07:35 36.7 87 20 114/75 97 Room Air 12/24/16 06:48 36.7 87 20 114/75 97 Room Air Allergies Coded Allergies: No Known Allergies (Unverified , 12/24/16) Home Medications Scheduled Alprazolam (Xanax), 0.5 MG PO QD@1200 Alprazolam (Xanax), 1 MG PO QAM Clonazepam (Clonazepam), 0.25 MG PO HS Escitalopram Oxalate (Escitalopram Oxalate), 10 MG PO QAM Esomeprazole Magnesium (Nexium), 20 MG PO BID Quetiapine Fumarate (Quetiapine Fumarate), 25 MG PO TID Rosuvastatin Calcium (Crestor), 20 MG PO HS Trazodone Hcl (Desyrel), 25 MG PO HS Scheduled PRN Acetaminophen (Tylenol), 500 MG PO Q6 PRN for Pain Oxycodone Hcl (Oxycodone Hcl), 10 MG PO Q8 PRN for Pain Trazodone Hcl (Desyrel), 12.5 MG PO DAILY PRN for Panic Attack Problem List Medical Problems: (1) Anemia (2) Anxiety (3) Benign hypertension (4) section (5) Depression (6) Disorder of gallbladder (7) gastric bypass (8) Heart disease (9) History of endoscopy (10) MIGRAINE UNSPECIFIED W/O INTRACT MGRN W/O STATUS MIGRAINOSUS (11) Panic disorder (12) PSVT (paroxysmal supraventricular tachycardia) (13) stomach band (14) stomach problems (15) urinary problems Surgical Problems: (1) History of colonoscopy Surgical / Medical History Hx Cardiac Surgery: No Hx Abdominal Surgery: Yes (ABDOMINAL BAND AND REMOVAL,GASTRIC BYPASS, C- SECTION X 2) Hx Cancer Surgery: No Hx Thoracic Surgery: No Hx Orthopedic: No Hx Urinary Tract Surgery: No Past Medical/Surgical History: Anxiety, Other (arrythmia) Family History Patient reports no known family medical history. Social History Smoking Status: Current Every Day Smoker Hx Tobacco Use In Past Year?: Yes Hx Alcohol Use - Type & Amnt: No Hx Substance Use -Type & Amnt: No Review of Systems Constitutional: No chills, No diaphoresis, No fatigue, No fever, No malaise, No problem reported, No sweats, No weakness, No weight gain, No weight loss Respiratory: No GAMBLE, No PND, No cough, No cyanosis, No dyspnea, No hemoptysis, No orthopnea, No problem reported, No short of breath, No sputum production, No stridor, No wheezing Cardiovascular: No chest pain, No chest pressure, No chest tightness, No cyanosis, No diaphoresis, No edema, No intermittent claudication, No lightheadedness, No mumur, No orthopnea, No palpitations, No paroxysmal nocturnal dyspnea, No problem reported, No syncope Gastrointestinal: No abdominal pain, No anorexia, No appetite changes, No belching, No constipation, No diarrhea, No dysphagia, No flatulence, No food intolerance, No heartburn, No hematemesis, No hematochezia, No hemorrhoids, No indigestion, No nausea, No problem reported, No rectal bleeding, No stool changes, No vomiting Genitourinary - Female: No breast problems, No dysmenorrhea, No dysuria, No hematuria, No hesitancy, No menorrhagia, No metrorrhagia, No , No problem reported, No rash, No urinary frequency, No urinary incontinence, No urinary retention, No urinary urgency, No vaginal bleeding, No vaginal discharge , No vaginal itching, No vulvadynia Neurologic: No LOC, No dizziness, No headache, No lethargy, No memory loss, No numbness, No paresthesia, No pre-existing deficit, No problem reported, No seizures, No tics, No tingling, No tremors, No vertigo, No weakness Psychiatric: + anxiety Physical Exam Constitutional: General Apperance: heathly-appearing, well-nourished, well-developed Level of Distress: NAD Ambulation: ambulating normally Psychiatric: Mental Status: active & alert, normal mood, normal affect Orientation: oriented except where noted, to time, to place, to person Memory: recent memory normal, remote memory normal Head: normocephalic, atraumatic Lungs: Auscultation: breath sounds normal Cardiovascular: Heart Auscultation: RRR Peripheral Pulses: Radial Pulse: normal on the left, normal on the right Femoral Pulse: normal on the left, normal on the right Abdomen: Inspection & Palpation: soft Musculoskeletal: normal Extremities: Upper Right: no cyanosis, no edema, no varicosities, no palpable cord, no clubbing, no ulcers, no mottling Upper Left: no cyanosis, no edema, no varicosities, no palpable cord, no clubbing, no ulcers, no mottling Lower Right: no cyanosis, no edema, no varicosities, no palpable cord, no clubbing, no ulcers, no mottling Lower Left: no cyanosis, no edema, no varicosities, no palpable cord, no clubbing, no ulcers, no mottling Neurologic: Cranial Nerves: grossly intact Sensation: grossly intact Assessment and Plan Imp: Lack of IV access Plan: Patient for insertion of infusaport. I have discussed the risks options and benefits of the procedure with the patient. The patient understands the risks options and benefits and agrees to the procedure.
--- NOTE | 2016-12-24 08:09 | Procedure Note ---
Pre-Mod Sedation Assessment General Date of Moderate Sedation: Dec 24, 2016. Vital Signs: Vital Signs Past 12 Hours Date Time Temp Pulse Resp B/P Pulse Ox O2 Delivery O2 Flow Rate FiO2 12/24/16 07:35 36.7 87 20 114/75 97 Room Air 12/24/16 06:48 36.7 87 20 114/75 97 Room Air Pre-Sedation Airway Assessment Oral Cavity: Dentures Short Thick Neck: No Hx of Sleep Apnea: No Smoking Status: Current Every Day Smoker Mallampati Classification: Class I ASA Classification: Class II Notes The planned sedation has been discussed with the patient and consent obtained. I have identified the patient, determined the appropriateness of sedation and have assessed the patient immediately prior to the procedure. All medicine(s) and interventions are by my order.
[2016-12-24] MEDS ORDERED: MIDAZOLAM HCL 1 MG/ML 2ML VIAL IV ONE (08:37)
[2016-12-24] MEDS ORDERED: FENTANYL CITRATE INJ 50 MCG/1 ML 2 ML VIAL IV ONE (08:37)
[2016-12-24] MEDS ORDERED: LIDOCAINE/EPINEPHRINE 1% INJ 50 ML VIAL ONE (08:58)
[2016-12-24] MEDS ORDERED: BUPIVACAINE/EPINEPHRINE 0.5% MPF 1:200,000 30 ML VIAL INFIL ONE (09:07)
[2016-12-24] MEDS ORDERED: LIDOCAINE HCL 1% 20 ML VIAL INFIL ONE (09:07)
--- NOTE | 2016-12-24 09:20 | [facility] Post Operative Brief Note ---
Immediate Operative Summary Operative Date Dec 24, 2016. Pre-Operative Diagnosis Lack of IV access Post-Operative Diagnosis Same Procedure(s) Performed Insertion of Infusaport, Right Jugular Approach Ultrasound Localization of Right Jugular Vein Fluoroscopy for Positioning Moderate Sedation ([id number]) Surgeon Pascual Manager Helpdesk Surgeon(s) Noelle Estimated Blood Loss 3 Findings tip in distal SVC Specimens None Anesthesia Local with consious sedation Complication(s) None Disposition
--- NOTE | 2016-12-24 09:20 | Procedure Note ---
Post-Moderate Sedation Plan General Date of Moderate Sedation Dec 24, 2016. Vital Signs: Vital Signs Past 12 Hours Date Time Temp Pulse Resp B/P Pulse Ox O2 Delivery O2 Flow Rate FiO2 12/24/16 07:35 36.7 87 20 114/75 97 Room Air 12/24/16 06:48 36.7 87 20 114/75 97 Room Air Review - Discharge Plan Post Moderate Sedation Plan: On clinical assessment, the patient appears to have tolerated the conscious sedation without complications. Patient is recovering as anticipated. Patient will continue to be monitored by nursing and may be discharged when conscious sedation discharge criteria are met.
--- NOTE | 2016-12-24 09:22 | Discharge Instructions ---
Discharge Instructions Date of Service Dec 24, 2016. Visit Reason for Visit: Iron Deficiency Anemia, Poor Venous Access Discharge Discharge Diagnosis / Problem: Lack of venous access Discharge Goals Goal(s): Therapeutic intervention Activity Recommendations Activity Limitations: per Instructions/Follow-up section Anesthesia . Post Anesthesia Instructions: If you have had General Anesthesia or IV Sedation: * Do not drive today. * Resume driving when surgeon permits. * Do not make important decisions or sign legal documents today. * Call surgeon for: 1. Temperature elevations greater than 101 degrees F. 2. Uncontrollable pain. 3. Excessive bleeding. 4. Persistent nausea and vomiting. 5. Medication intolerance (nausea, vomiting or rash). * For nausea and vomiting use only clear liquids such as: tea, soda, bouillon until nausea subsides, then gradually increase diet as tolerated. * If you have any concerns or questions, call your surgeon's office. If physician is unavailable and it is an emergency, call 911 or go to the nearest emergency room. . Instructions / Follow-Up Instructions / Follow-Up Call [phone] to schedule a follow up appointment if one not already scheduled. ACTIVITY RECOMMENDATIONS: See Above SPECIAL CARE INSTRUCTIONS: Call your doctor if: * Temperature above 101 degrees * Pain not relieved by pain medicine ordered * There is increased drainage or redness from any incision * You have any unanswered questions or concerns. Diet Recommendations Recommended Home Diet: resume previous diet Procedures Procedures Performed: Insertion of Infusaport, Right Jugular Approach Ultrasound Localization of Right Jugular Vein Fluoroscopy for Positioning Moderate Sedation ([id number]) Pending Studies Studies pending at discharge: no Medical Emergencies . Who to Call and When: Medical Emergencies: If at any time you feel your situation is an emergency, please call 911 immediately. . Non-Emergent Contact Non-Emergency issues call your: Surgeon . . "Provider Documentation" section prepared by Jamar Garner.
[2016-12-24 09:35] VITALS: BP 120/76; PULSE 74; TEMP 37; O2SAT 99
--- NOTE | 2016-12-24 09:51 | DIAGNOSTIC IMAGING REPORT ---
DATE OF PROCEDURE: 12/24/2016 PREOPERATIVE DIAGNOSIS: Need for long-term venous access for iron infusion. POSTOPERATIVE DIAGNOSIS: Same. PROCEDURES: 1. Placement of right internal jugular infusion port. 2. Conscious sedation for 34 minutes. SURGEON: Dr. Jamar Garner. ENTRY LEVEL CHEMIST: Dr. Ayde Drake. ANESTHESIA: Local sedation. ESTIMATED BLOOD LOSS: 3 mL. COMPLICATIONS: None apparent. CONDITION: Stable to PACU. INDICATIONS: Ms. Joaquin is a 46-year-old female who is in need of chronic iron infusions. She needed a long-term access. She was advised of the risks and benefits of having an [id number] placed. She agreed to undergo the procedure. DESCRIPTION OF PROCEDURE: The patient was brought into the operative suite. She was prepped and draped in the usual fashion. A timeout occurred. A spot on her chest wall was identified for placement of the pocket. This was anesthetized with local anesthesia. A 15 blade was used to create an incision and a Bovie was used to create the pocket. Next, the internal jugular was identified under ultrasound. This was widely patent. This was accessed under ultrasound guidance. A wire was passed into her inferior vena cava. The [id number]-A-[id number] catheter was then tunneled subcutaneously from the pocket to the puncture site. A breakaway sheath was then placed over the wire and the wire and dilator were removed. The catheter was then inserted into the superior vena cava through the breakaway sheath. This was removed. Placement was confirmed under fluoroscopy. The port was then attached to the catheter and placed in the pocket. This was sewn in with 2-0 Prolene sutures. Placement again was confirmed under fluoroscopy. The infusion port hole was flushed and willi back easily. Heparin was instilled into the port and the pocket was closed with 3-0 and then 4-0 subcuticular stitches. The patient was then transferred to the PACU in stable condition. Dr. Jamar Garner was present and scrubbed for the entirety of this case.
--- NOTE | 2016-12-24 15:37 | Medical Student: [facility] ---
Immediate Operative Summary Operative Date Dec 24, 2016. Pre-Operative Diagnosis need for iron infusion and long-term IV access Post-Operative Diagnosis same Procedure(s) Performed Infusaport insertion with U/S localization of right IJV, fluoroscopy to confirm position of catheter tip Surgeon Dr. Garner Billet Header Surgeon(s) Dr. Drake Estimated Blood Loss 3cc Findings infusaport catheter tip in SVC Specimens none Anesthesia local w lidocaine Complication(s) None Disposition Recovery Room / PACU
[2017-02-26] MEDS ORDERED: ACET-1256 PO (06:47)
[2017-07-25] MEDS ORDERED: BUSPAR PO (10:58)
[2017-07-25] MEDS ORDERED: TRAZ-119 PO (10:58)
[2017-07-25] MEDS ORDERED: QUET1TAB32 PO (10:58)
[2017-07-25] MEDS ORDERED: CITA10TA4 PO (10:58)
[2017-07-25] MEDS ORDERED: TRAZ50TA35 PO (10:58)
[2017-07-25] MEDS ORDERED: ROSU20TA PO (10:58)
[2017-07-25] MEDS ORDERED: HYDR-4079 PO (11:00)
== END 2016-12-24 10:15 | disposition home or self-care (01) ==
LOC: C.ACU 06:26
PROVIDERS: ATTEND Surgery Vascular Surgery
DX: D50.9 Iron deficiency anemia, unspecified (principal); F41.9 Anxiety disorder, unspecified; I10 Essential (primary) hypertension; I51.9 Heart disease, unspecified; Z98.84 Bariatric surgery status; F17.210 Nicotine dependence, cigarettes, uncomplicated

== ENCOUNTER 2017-02-26 18:08 | Emergency (ER) | payer OTHER ==
[~2017-02-26] VITALS: Ht 162.6 cm; Wt 90.0 kg
[~2017-02-26 18:08] MED LIST changes: +ACET-1256 PO; -SODIUM CHLORIDE 0.9% 1000ML IV SCH
[2017-02-26 18:11] VITALS: Ht 162.6 cm; Wt 90.0 kg
[2017-02-26] MEDS ORDERED: HYDROmorphone INJ 1 MG/ML SYR IV STA ×2 (18:42→23:14)
[2017-02-26] MEDS ORDERED: SODIUM CHLORIDE 0.9% 1000ML 1,000 ML IV STA (18:42)
[2017-02-26] MEDS ORDERED: ONDANSETRON INJ 2 MG/ML 2 ML VIAL IV STA (18:42)
[2017-02-26] MEDS ORDERED: QUET5TAB PO (18:53)
[2017-02-26] MEDS ORDERED: PANT40TA2 PO (18:53)
[2017-02-26] MEDS ORDERED: DSY100 PO (18:53)
[2017-02-26 19:36] LABS: HEMATOCRIT 45.1 % (37-47); MEAN CELL VOLUME 87.9 fL (80-100); MEAN CORPUSCULAR HEMOGLOBIN 28.7 pg (25-34); MEAN CORPUSCULAR HGB CONC 32.6 g/dl (32-36); MEAN PLATELET VOLUME 11.5 fL (7.4-10.4); PLATELET COUNT 226 K/uL (130-400); RED BLOOD COUNT 5.13 M/uL (4.2-5.4); WHITE BLOOD COUNT 6.48 K/uL (4.8-10.8)
[2017-02-26 19:58] LABS: BUN/CREATININE RATIO 15.1 (10-20); CALCIUM 8.9 mg/dl (8.5-10.1); CREATININE 0.68 mg/dl (0.60-1.20); POTASSIUM 3.5 mmol/L (3.5-5.1)
[2017-02-26 20:25] LABS: BASO ABS # 0.06 K/uL (0-0.2); BASOPHIL % 0.9 %; COMPLETE YES; ECHINOCYTES 1+; EOSINOPHIL % 1.7 %; LYMPH ABS # 3.04 K/uL (1.2-3.4); LYMPHOCYTE % 46.9 %; NEUTROPHILS % 32.2 %; VARIANT LYM ABS # 0.79 K/uL; VARIANT LYMPHOCYTE % 12.2 %
[2017-02-26 21:07] LABS: URINE APPEARANCE CLEAR (CLEAR); URINE BILIRUBIN NEG (NEG); URINE COLOR YELLOW; URINE NITRITE NEG (NEG); URINE PH 5.5 (4.5-7.5); URINE SPECIFIC GRAVITY 1.006 (1.000-1.030); UROBILINOGEN NEG (NEG)
[2017-02-26 21:08] LABS: MANUAL MICROSCOPIC REQUIRED? NO; REVIEW REQ? NO
--- NOTE | 2017-02-26 21:12 | EMERGENCY ROOM VISIT NOTE ---
ED Visit Note First contact with patient: 18:15 Chief Complaint: Abdominal pain. History of Present Illness: Ms. Joaquin is a 46 year-old white female who ambulates into the ED accompanied by a male friend complaining of epigastric and left lower quadrant quadrant abdominal pain. Historically patient reports complicated surgical abdomen past medical history including a gastric bypass 7 years ago that was complicated by ulcer disease and anemia. 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 Additionally most recently 5 weeks ago she had revision of her gastric bypass and removal of her gastric remanent Patient reports 2 days ago she developed acute onset of diarrhea which followed an acute onset of epigastric and left lower quadrant abdominal pain. Since that time she reports her diarrhea has been constant and she's been having 5-6 episodes of dark brown watery stools and ongoing pain. Currently she describes her pain as a sharp sensation in the left lower quadrant and a burning sensation in the epigastric area. She rates her discomfort 9/10. Her pain is nonradiating. Her pain worsens with palpation and eating. Associated with her pain she reports she has been having sensations of fevers and chills, nausea without vomiting, decreased appetite and as previously noted her diarrhea. She reports taking Tylenol for pain without relief earlier this morning and her prescribed pantoprazole once a day instead of twice a day. Patient denies skin eruptions, skin color changes, upper respiratory tract symptoms, shortness of breath, chest pain, constipation, rectal bleeding, black/ tarry stools, urinary symptoms, hematuria, vaginal bleeding, vaginal discharge, back/flank pain. Review of Systems: As noted above in history of present illness. All body systems were reviewed and found to be negative as noted above. Past Medical History: As previously noted and hypertension, depression, anxiety , unspecified heart disease, migraine headaches, panic disorder, SVT, and status post section. Current Medications: Medications Dose Route/Sig Max Daily Dose Days Date Category Seroquel (Quetiapine Fumarate) 50 Mg Tab 100 Mg PO HS 02/26/17 Reported Trazodone HCl 100 Mg Tab 100 Mg PO HS 02/26/17 Reported Pantoprazole Sodium (Pantoprazole) 40 Mg Tab 40 Mg PO BID 02/26/17 Reported Tylenol (Acetaminophen) 500 Mg Tab 1-3 Tabs PO TID PRN 12/24/16 Reported Xanax (Alprazolam) 1 Mg Tab 0.5 Mg PO TID 11/25/16 Reported Allergies to Medications: Patient denies. Social History: Patient lives with her ; she admits to tobacco use. Physical Examination: Vital Signs: Date Time Temp Pulse Resp B/P (MAP) Pulse Ox O2 Delivery O2 Flow Rate FiO2 02/26/17 19:58 80 02/26/17 19:54 82 17 137/78 98 Room Air 02/26/17 18:11 36.8 86 16 139/83 97 GENERAL: 46-year-old female in mild distress due to pain, nontoxic-appearing, afebrile and hemodynamically stable. NEUROLOGICAL: Awake, alert and oriented to person, place and time. Answering questions appropriately and following commands. Normal gait. Good hand eye coordination. SKIN: Warm, dry and pink. No soft tissue eruptions or trauma noted. HEENT: Atraumatic and normocephalic. PERRLA. Sclera white and conjunctiva pink. Oral cavity moist and pink. Pharynx is nonerythematous or edematous. Speech normal. No lymphadenopathy. Trachea midline. No jugular venous distention. BACK: No tenderness over the bony spine. No CVA tenderness. THORAX: Lungs sounds are clear to auscultation and equal bilaterally with symmetrical chest wall. No wheezing, rales or rhonchi. No crepitus, tenderness , subcutaneous air or deformities noted. HEART: Regular rate and rhythm. No gallops, rubs or murmurs are appreciated. ABDOMEN: Flat and soft with moderate epigastric and moderate right lower quadrant tenderness. Decreased bowel sounds in all quadrants. No guarding, rigidity or organomegaly. Patient's surgical incision is clean dry and intact without drainage or signs of infection. EXTREMITIES: Moves all extremities well on command and with purpose. All distal neurovascular statuses are intact and equal bilaterally. ED Course: Patient is assessed as noted above. Laboratory Testing: Test 02/26/17 19:26 02/26/17 20:50 Range/Units White Blood Count 6.48 4.8-10.8 K/uL Red Blood Count 5.13 4.2-5.4 M/uL Hemoglobin 14.7 12.0-16.0 g/dL Hematocrit 45.1 37-47 % Mean Corpuscular Volume 87.9 80-100 fL Mean Corpuscular Hemoglobin 28.7 25-34 pg Mean Corpuscular Hemoglobin Concent 32.6 32-36 g/dl Platelet Count 226 130-400 K/uL Mean Platelet Volume 11.5 7.4-10.4 fL RDW Standard Deviation 58.6 36.4-46.3 fL RDW Coefficient of Variation 18.1 11.5-14.5 % Neutrophils % (Manual) 32.2 % Lymphocytes % (Manual) 46.9 % Variant Lymphocytes % (manual) 12.2 % Monocytes % (Manual) 6.1 % Eosinophils % (Manual) 1.7 % Basophils % (Manual) 0.9 % Neutrophils # (Manual) 2.09 1.4-6.5 K/uL Total Absolute Neutrophils 2.09 1.4-6.5 K/uL Lymphocytes # (Manual) 3.04 1.2-3.4 K/uL Absolute Variant Lymphocytes 0.79 K/uL Total Absolute Lymphocytes 3.83 1.2-3.4 K/uL Monocytes # (Manual) 0.40 0.11-0.59 K/uL Eosinophils # (Manual) 0.11 0-0.5 K/uL Basophils # (Manual) 0.06 0-0.2 K/uL Echinocytes 1+ Sodium Level 142 136-145 mmol/L Potassium Level 3.5 3.5-5.1 mmol/L Chloride Level 110 98-107 mmol/L Carbon Dioxide Level 24 21-32 mmol/L Anion Gap 8.0 3-11 mmol/L Blood Urea Nitrogen 10 7-18 mg/dl Creatinine 0.68 0.60-1.20 mg/dl Est Creatinine Clear Calc Drug Dose 111.1 ml/min Estimated GFR () 120.7 Estimated GFR (Non- 104.2 BUN/Creatinine Ratio 15.1 10-20 Random Glucose 99 70-99 mg/dl Calcium Level 8.9 8.5-10.1 mg/dl Total Bilirubin 0.4 0.2-1 mg/dl Direct Bilirubin 0.1 0-0.2 mg/dl Aspartate Amino Transf (AST/SGOT) 12 15-37 U/L Alanine Aminotransferase (ALT/SGPT) 19 12-78 U/L Alkaline Phosphatase 55 45-117 U/L Total Protein 8.3 6.4-8.2 gm/dl Albumin 3.9 3.4-5.0 gm/dl Lipase 116 73-393 U/L Urine Color YELLOW Urine Appearance CLEAR CLEAR Urine pH 5.5 4.5-7.5 Urine Specific [place] 1.006 1.000-1.030 Urine Protein NEG NEG Urine Glucose (UA) NEG NEG Urine Ketones NEG NEG Urine Occult Blood NEG NEG Urine Nitrite NEG NEG Urine Bilirubin NEG NEG Urine Urobilinogen NEG NEG Urine Leukocyte Esterase NEG NEG Radiological Testing: Acute Abdominal Series and Contrast Abdominal/Pelvic CT pending. Patient was hydrated with normal saline and patient was given 1 mg of the Dilaudid IV for pain and 4 mg of Zofran IV. Patient's care was transferred to KAREEM Deras at the end of my shift pending radiological testing. Patient was educated about today's findings. Clinical Impression: Epigastric and right lower quadrant abdominal pain. Status post gastric bypass. Diarrhea. Disposition and Plan: Please see Ms. Colmenares's notes and orders for final disposition and plan.
--- NOTE | 2017-02-26 21:24 | DIAGNOSTIC IMAGING REPORT ---
ABDOMEN 2VIEW W/PA CHEST RTN CLINICAL HISTORY: Abdominal pain. Nausea, diarrhea. COMPARISON STUDY: 11/29/2016 FINDINGS: The heart is normal in size. There is a right-sided internal jugular A-Port catheter. There is no focal pulmonary consolidation. There is no free intraperitoneal air. Erect and supine views the abdomen reveal contrast within borderline dilated small bowel loops. There is moderate right colonic stool. There are no transition zone to indicate a significant bowel obstruction. There are few scattered air-fluid levels on the erect study. IMPRESSION: Mildly prominent small bowel loops. No conventional radiographic evidence of a high-grade bowel obstruction. Moderate stool in the right colon. No free air. Electronically signed by: Cassius Tran M.D. 02/26/2017 9:23 PM Dictated Date/Time: 02/26/2017 9:20 PM
--- NOTE | 2017-02-26 21:36 | DIAGNOSTIC IMAGING REPORT ---
CT ABD/PELVIS IV AND ORAL CONT CLINICAL HISTORY: Abdominal pain COMPARISON STUDY: 11/17/2016 TECHNIQUE: Following the IV administration of 119 mL of Optiray-320, CT scan of the abdomen and pelvis was performed from the lung bases to the proximal femurs. Images are reviewed in the axial, sagittal, and coronal planes. IV contrast was administered without complication. CT DOSE: 579.65 mGy.cm FINDINGS: Lower chest: There are minimal dependent atelectatic changes. Liver: The contrast-enhanced liver is normal in size, contour, and attenuation. There is no intrahepatic biliary ductal dilatation. The hepatic veins and portal veins are patent. Gallbladder: Unremarkable. Spleen: Normal in size and attenuation. Pancreas: Unremarkable. Adrenal glands: Unremarkable. Kidneys: There is symmetric renal cortical enhancement. The kidneys are normal in size without hydronephrosis. Bowel: There are postsurgical changes of a gastric bypass and Marion-en-Y anastomosis. There are no transition zones indicate bowel obstruction. There is infiltration of the fat involving the left anterior abdominal wall. This is felt to be postsurgical. Contrast no longer fills the excluded stomach. The appendix appears normal. There is formed fecal material within distal ileal loops. This may indicate a motility disorder. Peritoneum: There is no intraperitoneal free air or abdominal ascites. There is infiltration of the left mid to lower quadrant mesentery. There is a very slight swirled pattern of the mesenteric vessels and bowel loops appear tethered at this level. Likely diagnostic considerations include a an internal hernia, or mesenteritis. Vasculature: The abdominal aorta is normal in course and caliber. Adenopathy: None. Pelvic viscera: There is an enlarging 3.5 cm left ovarian cyst. Skeletal structures: No destructive osseous lesions are seen. IMPRESSION: 1. Postsurgical changes of a gastric bypass and Marion-en-Y anastomosis. 2. There is possible interval surgical revision is contrast no longer fills the excluded stomach 3. Infiltration of the left mid to lower quadrant mesentery with a slight swirl pattern. There is tethering of bowel loops at this level. Likely diagnostic considerations include an internal hernia, or mesenteritis. There is no current evidence for a high-grade bowel obstruction 4. Enlarging 3.5 cm left ovarian cyst Electronically signed by: Cassius Tran M.D. 02/26/2017 9:35 PM Dictated Date/Time: 02/26/2017 9:25 PM
[2017-02-26] MEDS ORDERED: HYDROmorphone INJ 0.5 MG/0.5 ML SYR IV STA (22:10)
--- NOTE | 2017-02-26 23:03 | EMERGENCY ROOM VISIT NOTE ---
History First contact with patient: 20:57 Chief Complaint: ABDOMINAL PAIN Stated Complaint: ABD PAIN,NAUSEA,DIARRHEA Nursing Triage Summary: pt here with abd pains, pt had surgery 5 weeks ago from a gastric bypass, had ulcers. procedure done in [place]. pt having nausea and diarrhea x 2 days. History of Present Illness Care of this patient was signed out to me by Wei Gaspar PA-C at change of shift. At that time, the patient was awaiting CT scan results. Briefly, the patient has a history of gastric bypass surgery performed in [place] approximately 8 years ago. 6 weeks ago, the patient was seen there for a revision of a fistula and multiple ulcers. She states these were found by Dr. ureña of GI locally. She states her incisions seem to be healing well, but 2 days ago she developed left-sided abdominal pain, nausea, and diarrhea. She has not contacted her surgeon. Please see Wei Gaspar's dictation for full history of present illness and ED course prior to my seeing the patient. Review of Systems A complete 10 point review of systems was reviewed with the patient with pertinent positives and negatives as per history of present illness. All else were negative. Past Medical/Surgical History Medical Problems: (1) Anemia (2) Anxiety (3) Benign hypertension (4) section (5) Depression (6) Disorder of gallbladder (7) gastric bypass (8) Heart disease (9) History of endoscopy (10) MIGRAINE UNSPECIFIED W/O INTRACT MGRN W/O STATUS MIGRAINOSUS (11) Panic disorder (12) PSVT (paroxysmal supraventricular tachycardia) (13) stomach band (14) stomach problems (15) urinary problems Surgical Problems: (1) History of colonoscopy Family History Patient reports no known family medical history. Social History Smoking Status: Current Every Day Smoker Alcohol Use: none Drug Use: none Marital Status: Housing Status: lives with family Occupation Status: unemployed Current/Historical Medications Scheduled Alprazolam (Xanax), 0.5 MG PO TID Pantoprazole (Pantoprazole Sodium), 40 MG PO BID Quetiapine Fumarate (Seroquel), 100 MG PO HS Trazodone HCl (Trazodone HCl), 100 MG PO HS Scheduled PRN Acetaminophen (Tylenol), 1-3 TABS PO TID PRN for Pain Allergies Coded Allergies: No Known Allergies (Unverified , 12/24/16) Physical Exam Vital Signs Date Time Temp Pulse Resp B/P (MAP) Pulse Ox O2 Delivery O2 Flow Rate FiO2 02/26/17 21:50 56 16 114/59 98 Room Air 02/26/17 19:58 80 02/26/17 19:54 82 17 137/78 98 Room Air 02/26/17 18:11 36.8 86 16 139/83 97 Physical Exam VITALS: Vitals are noted on the nurse's note and reviewed by myself. Vital signs stable. GENERAL: This is a 46-year-old female, in no acute distress, nondiaphoretic, well-developed well-nourished. HEART: Regular rate and rhythm without murmurs gallops or rubs. LUNGS: Clear to auscultation bilaterally without wheezes, rales or rhonchi. ABDOMEN: There are well-healing laparoscopic incisions. The abdomen is soft. There is tenderness to palpation of the left mid abdomen and left lower quadrant. No guarding or rebound tenderness. No rigidity. NEURO: Patient was alert and oriented to person place and time. Medical Decision & Procedures ER Provider Diagnostic Interpretation: CT ABD/PELVIS IV AND ORAL CONT CLINICAL HISTORY: Abdominal pain COMPARISON STUDY: 11/17/2016 TECHNIQUE: Following the IV administration of 119 mL of Optiray-320, CT scan of the abdomen and pelvis was performed from the lung bases to the proximal femurs. Images are reviewed in the axial, sagittal, and coronal planes. IV contrast was administered without complication. CT DOSE: 579.65 mGy.cm FINDINGS: Lower chest: There are minimal dependent atelectatic changes. Liver: The contrast-enhanced liver is normal in size, contour, and attenuation. There is no intrahepatic biliary ductal dilatation. The hepatic veins and portal veins are patent. Gallbladder: Unremarkable. Spleen: Normal in size and attenuation. Pancreas: Unremarkable. Adrenal glands: Unremarkable. Kidneys: There is symmetric renal cortical enhancement. The kidneys are normal in size without hydronephrosis. Bowel: There are postsurgical changes of a gastric bypass and Marion-en-Y anastomosis. There are no transition zones indicate bowel obstruction. There is infiltration of the fat involving the left anterior abdominal wall. This is felt to be postsurgical. Contrast no longer fills the excluded stomach. The appendix appears normal. There is formed fecal material within distal ileal loops. This may indicate a motility disorder. Peritoneum: There is no intraperitoneal free air or abdominal ascites. There is infiltration of the left mid to lower quadrant mesentery. There is a very slight swirled pattern of the mesenteric vessels and bowel loops appear tethered at this level. Likely diagnostic considerations include a an internal hernia, or mesenteritis. Vasculature: The abdominal aorta is normal in course and caliber. Adenopathy: None. Pelvic viscera: There is an enlarging 3.5 cm left ovarian cyst. Skeletal structures: No destructive osseous lesions are seen. IMPRESSION: 1. Postsurgical changes of a gastric bypass and Marion-en-Y anastomosis. 2. There is possible interval surgical revision is contrast no longer fills the excluded stomach 3. Infiltration of the left mid to lower quadrant mesentery with a slight swirl pattern. There is tethering of bowel loops at this level. Likely diagnostic considerations include an internal hernia, or mesenteritis. There is no current evidence for a high-grade bowel obstruction 4. Enlarging 3.5 cm left ovarian cyst Laboratory Results 02/26/17 19:26 Red Blood Count 5.13, Mean Corpuscular Volume 87.9, Mean Corpuscular Hemoglobin 28.7, Mean Corpuscular Hemoglobin Concent 32.6, Mean Platelet Volume 11.5 02/26/17 19:26 Test 02/26/17 19:26 02/26/17 20:50 White Blood Count 6.48 K/uL (4.8-10.8) Red Blood Count 5.13 M/uL (4.2-5.4) Hemoglobin 14.7 g/dL (12.0-16.0) Hematocrit 45.1 % (37-47) Mean Corpuscular Volume 87.9 fL (80-100) Mean Corpuscular Hemoglobin 28.7 pg (25-34) Mean Corpuscular Hemoglobin Concent 32.6 g/dl (32-36) Platelet Count 226 K/uL (130-400) Mean Platelet Volume 11.5 fL (7.4-10.4) RDW Standard Deviation 58.6 fL (36.4-46.3) RDW Coefficient of Variation 18.1 % (11.5-14.5) Neutrophils % (Manual) 32.2 % Lymphocytes % (Manual) 46.9 % Variant Lymphocytes % (manual) 12.2 % Monocytes % (Manual) 6.1 % Eosinophils % (Manual) 1.7 % Basophils % (Manual) 0.9 % Neutrophils # (Manual) 2.09 K/uL (1.4-6.5) Total Absolute Neutrophils 2.09 K/uL (1.4-6.5) Lymphocytes # (Manual) 3.04 K/uL (1.2-3.4) Absolute Variant Lymphocytes 0.79 K/uL Total Absolute Lymphocytes 3.83 K/uL (1.2-3.4) Monocytes # (Manual) 0.40 K/uL (0.11-0.59) Eosinophils # (Manual) 0.11 K/uL (0-0.5) Basophils # (Manual) 0.06 K/uL (0-0.2) Echinocytes 1+ Anion Gap 8.0 mmol/L (3-11) Est Creatinine Clear Calc Drug Dose 111.1 ml/min Estimated GFR () 120.7 Estimated GFR (Non- 104.2 BUN/Creatinine Ratio 15.1 (10-20) Calcium Level 8.9 mg/dl (8.5-10.1) Total Bilirubin 0.4 mg/dl (0.2-1) Direct Bilirubin 0.1 mg/dl (0-0.2) Aspartate Amino Transf (AST/SGOT) 12 U/L (15-37) Alanine Aminotransferase (ALT/SGPT) 19 U/L (12-78) Alkaline Phosphatase 55 U/L (45-117) Total Protein 8.3 gm/dl (6.4-8.2) Albumin 3.9 gm/dl (3.4-5.0) Lipase 116 U/L (73-393) Urine Color YELLOW Urine Appearance CLEAR (CLEAR) Urine pH 5.5 (4.5-7.5) Urine Specific [place] 1.006 (1.000-1.030) Urine Protein NEG (NEG) Urine Glucose (UA) NEG (NEG) Urine Ketones NEG (NEG) Urine Occult Blood NEG (NEG) Urine Nitrite NEG (NEG) Urine Bilirubin NEG (NEG) Urine Urobilinogen NEG (NEG) Urine Leukocyte Esterase NEG (NEG) Medications Administered Medications (Trade) Dose Ordered Sig/Beth Route Start Time Stop Time Status Last Admin Dose Admin Sodium Chloride 1,000 ml @ 999 mls/hr Q1H1M STAT IV 02/26/17 18:42 02/26/17 19:42 DC 02/26/17 18:42 999 MLS/HR Ondansetron HCl (Zofran Inj) 4 mg NOW STAT IV 02/26/17 18:42 02/26/17 18:45 DC 02/26/17 19:49 4 MG Hydromorphone HCl (Dilaudid Inj) 1 mg NOW STAT IV 02/26/17 18:42 02/26/17 18:45 DC 02/26/17 19:50 1 MG Hydromorphone HCl (Dilaudid Inj) 0.5 mg NOW STAT IV 02/26/17 22:10 02/26/17 22:11 DC 02/26/17 22:28 0.5 MG Medical Decision Differential diagnosis includes postsurgical complication, postsurgical infection, hernia, bowel obstruction, among others. Care of the patient was signed out to me pending results of a CT scan. CT scan was performed and read by radiology and did show findings suggestive of an internal hernia. I spoke with Dr. Maria, the general surgeon on-call, who did review the CT scan but was not comfortable admitting the patient, as she has a complication of bariatric surgery. He feels the patient should be transferred to a center that does have a bariatric surgeon. The case was discussed with Dr. Howell, the bariatric specialist at [facility]. He agreed to accept the patient as an ED to ED transfer. I also spoke with Dr. Page in the emergency department, who will accept the patient in transfer. The patient did receive additional doses of Dilaudid under my care. She was reassessed and was hemodynamically stable. She was transferred ALS to [facility] for further evaluation and care. Impression Primary Impression: Internal hernia Departure Information Referrals Cal Valdes DO (PCP) Patient Instructions My [facility]
[2017-02-27 01:06] VITALS: BP 112/78; PULSE 61; TEMP 36.8; O2SAT 95
[2017-07-25] MEDS ORDERED: TRAZ-119 PO (10:58)
[2017-07-25] MEDS ORDERED: CITA10TA4 PO (10:58)
[2017-07-25] MEDS ORDERED: ROSU20TA PO (10:58)
[2017-07-25] MEDS ORDERED: TRAZ50TA35 PO (10:58)
[2017-07-25] MEDS ORDERED: BUSPAR PO (10:58)
[2017-07-25] MEDS ORDERED: QUET1TAB32 PO (10:58)
[2017-07-25] MEDS ORDERED: HYDR-4079 PO (11:00)
== END 2017-02-27 01:06 | disposition short-term general hospital (02) ==
LOC: C.EDB 18:09
DX: K46.9 Unspecified abdominal hernia without obstruction or gangrene (principal); R10.13 Epigastric pain; R10.31 Right lower quadrant pain; R19.7 Diarrhea, unspecified; Z98.84 Bariatric surgery status; I10 Essential (primary) hypertension; F32.9 Major depressive disorder, single episode, unspecified; F41.9 Anxiety disorder, unspecified; I51.9 Heart disease, unspecified; G43.909 Migraine, unspecified, not intractable, without status migrainosus; I47.1 Supraventricular tachycardia; Z79.899 Other long term (current) drug therapy; F17.210 Nicotine dependence, cigarettes, uncomplicated

== ENCOUNTER → 2017-03-01 | Outpatient (CLI) | payer OTHER ==
[~2017-03-01] MED LIST changes: +BUSPAR PO; +CITA10TA4 PO; +DPKSR/500 PO; +DSY100 PO; +HYDR-4079 PO; -KLN1X PO; -LXP10 PO; -OXYC-164 PO; +PANT40TA2 PO; +QUET1TAB32 PO; +QUET5TAB PO; -SRQ25 PO; +TRAZ-119 PO; -TRAZ-120 PO; +TRAZ50TA35 PO
== END | disposition home or self-care (01) ==
LOC: C.LABSPEC 07:22
PROVIDERS: ATTEND Surgery
DX: A04.7 Enterocolitis due to Clostridium difficile (principal)

== ENCOUNTER → 2017-03-13 | Outpatient (CLI) | payer OTHER ==
[~2017-03-13] MED LIST changes: -BUSPAR PO; -CITA10TA4 PO; -DPKSR/500 PO; -ESOM20CA PO; -HYDR-4079 PO; -PANT40TA2 PO; +PRT/40 PO; -QUET1TAB32 PO; -ROSU20TA PO; -TRAZ-119 PO; -TRAZ50TA35 PO
--- NOTE | 2017-03-13 13:10 | DIAGNOSTIC IMAGING REPORT ---
ULTRASOUND OF THE PELVIS CLINICAL HISTORY: Ovarian cyst.. COMPARISON STUDY: Pelvic CT dated 02/26/2017. TECHNIQUE: Real-time, grayscale, and color flow sonography of the pelvis is performed both transabdominally and endovaginally. Images are reviewed in the transverse and longitudinal planes. FINDINGS: Uterus: The uterus is normal in size and echotexture, measuring 8.6 x 3.9 x 5.5 cm. A Nabothian cyst is seen in the cervix. Endometrium: The endometrium is normal in appearance, and the endometrial stripe is normal in thickness measuring up to 0.9 cm. Ovaries: The ovaries are normal in size and morphology. The right ovary measures 2.7 x 2.0 x 1.9 cm and the left ovary measures 3.7 x 2.3 x 3.0 cm. A 2.0 cm septated follicle is noted in the left ovary. Smaller follicles are noted. Normal Doppler waveforms are shown within both ovaries. Pelvis: There is no free fluid in the cul-de-sac. No concerning adnexal lesion is seen. IMPRESSION: 1. No acute sonographic abnormality is identified in the pelvis. 2. There is a 2.0 cm dominant follicle noted in the left ovary. No concerning cystic lesion is seen. Electronically signed by: Mariano Jimenez M.D. 03/13/2017 1:08 PM Dictated Date/Time: 03/13/2017 1:06 PM
== END | disposition home or self-care (01) ==
LOC: C.ULTRBC 11:50
PROVIDERS: ATTEND Family Medicine
DX: N83.299 Other ovarian cyst, unspecified side (principal)

== ENCOUNTER 2017-07-02 12:27 | Emergency (ER) | payer OTHER ==
[~2017-07-02] VITALS: Ht 162.6 cm; Wt 93.1 kg
[2017-07-02 12:42] VITALS: TEMP 37; Ht 162.6 cm; Wt 93.1 kg
[2017-07-02] MEDS ORDERED: FAMOTIDINE 20MG/102 ML D5W IV STA (13:07)
[2017-07-02] MEDS ORDERED: HYOSCYAMINE SULFATE 0.125 MG SL TAB SL STA (13:07)
[2017-07-02 13:26] LABS: URINE APPEARANCE CLEAR (CLEAR); URINE BILIRUBIN NEG (NEG); URINE COLOR YELLOW; URINE NITRITE NEG (NEG); URINE SPECIFIC GRAVITY 1.024 (1.000-1.030); UROBILINOGEN NEG (NEG)
[2017-07-02 13:28] LABS: MANUAL MICROSCOPIC REQUIRED? NO; REVIEW REQ? NO
[2017-07-02 13:48] LABS: BASO % 0.2 %; BASO ABS # 0.01 K/uL (0-0.2); COMPLETE YES; EOS % 0.8 %; HEMATOCRIT 40.2 % (37-47); LYMPH % 47.5 %; LYMPH ABS # 3.15 K/uL (1.2-3.4); MEAN CELL VOLUME 93.7 fL (80-100); MEAN CORPUSCULAR HEMOGLOBIN 32.4 pg (25-34); MEAN CORPUSCULAR HGB CONC 34.6 g/dl (32-36); MEAN PLATELET VOLUME 11.6 fL (7.4-10.4); MONO % 7.2 %; NEUT % 44.3 %; PLATELET COUNT 239 K/uL (130-400); RED BLOOD COUNT 4.29 M/uL (4.2-5.4); WHITE BLOOD COUNT 6.63 K/uL (4.8-10.8)
[2017-07-02 14:05] LABS: BLOOD UREA NITROGEN 10 mg/dl (7-18); BUN/CREATININE RATIO 16.5 (10-20); CARBON DIOXIDE 26 mmol/L (21-32); CHLORIDE 108 mmol/L (98-107); GLUCOSE 92 mg/dl (70-99); POTASSIUM 4.1 mmol/L (3.5-5.1); SODIUM 139 mmol/L (136-145)
[2017-07-02 14:16] LABS: ALKALINE PHOSPHATASE 64 U/L (45-117); ALT/SGPT 11 U/L (12-78); AST/SGOT 12 U/L (15-37)
[2017-07-02] MEDS ORDERED: OPTIRAY 320 IV PRN (14:30)
[2017-07-02] MEDS ORDERED: ESOM20CA PO (14:45)
[2017-07-02] MEDS ORDERED: DPKSR/500 PO (14:45)
[2017-07-02 14:52] LABS: BENZODIAZEPINE, URINE POS (NEG); COCAINE,URINE NEG (NEG); PHENCYCLIDINE, URINE NEG (NEG)
--- NOTE | 2017-07-02 15:52 | DIAGNOSTIC IMAGING REPORT ---
ABD/PELVIS IV AND ORAL CONT HISTORY: 47 years-old Female eval for surgical complication history of prior Marion-en-Y gastric bypass. Follow-up study. COMPARISON: CT abdomen and pelvis 02/26/2017 TECHNIQUE: Multiple axial CT images of the abdomen and pelvis were obtained following the intravenous administration of 92 mL Optiray 320. Oral contrast also administered. A dose lowering technique was used consistent with the principals of SAHIL. FINDINGS: Groundglass and linear consolidative opacities of the lung bases suggest atelectasis. There is no pneumoperitoneum. Imaged inferior cardiac chambers are unremarkable. Liver, gallbladder, spleen, pancreas and adrenal glands are unremarkable. Kidneys, ureters, urinary bladder and uterus are unremarkable. The previously described 3.5 cm left ovarian cyst is no longer identified. Peripherally enhancing cystic structure within the region of the right adnexum, 1.5 cm suggesting involuting follicle. Abdominal aorta is normal in both course and caliber. No bulky retroperitoneal adenopathy. Postsurgical changes of prior Mraion-en-Y gastric bypass. No oral contrast seen within the excluded stomach. Oral contrast is seen within the jejunal jejunal anastomosis. No evidence of complication or bowel obstruction. Previously described swelling and stranding of the left lower mesentery on study dated 02/26/2017 is no longer appreciated. Scattered nonenlarged mildly prominent lymph nodes throughout the mid mesentery likely physiologic. The appendix appears normal. Soft tissues are unremarkable. Decreased amount of soft tissue stranding is seen within the left upper anterior abdominal wall as seen on image 160 of series 3. Moderate facet arthropathy of the lower lumbar spine. Bones appear intact. IMPRESSION: 1. Postsurgical changes of prior Marion-en-Y gastric bypass. No evidence of postsurgical complication or bowel obstruction. 2. Previously described inflammatory changes and swirling of the left lower mesentery on study dated 02/26/2017 is no longer appreciated. A few scattered mildly prominent mesenteric lymph nodes are seen suggesting physiologic changes or resolving mesenteritis. 3. Normal appendix. 4. Resolution of the previously described 3.5 cm left ovarian cystic lesion. The above report was generated using voice recognition software. It may contain grammatical, syntax or spelling errors. Electronically signed by: Harry Walker M.D. 07/02/2017 3:50 PM Dictated Date/Time: 07/02/2017 3:42 PM
[2017-07-02 16:17] VITALS: BP 131/70; PULSE 70; O2SAT 99
--- NOTE | 2017-07-02 19:42 | EMERGENCY ROOM VISIT NOTE ---
History Report prepared by Jerri: Petar Pratt Under the Supervision of: Dr. John Bonilla M.D. First contact with patient: 12:48 Chief Complaint: ABDOMINAL PAIN Stated Complaint: AB PAIN Nursing Triage Summary: triage note: Pt reports increased abd pain, nausea and vomitting. Pt reports " i have had two abd surgeries in the past several months." pt reports she had appt at dr ureña's office and was told to come to ed for further eval. History of Present Illness The patient is a 47 year old female who presents to the Emergency Room with complaints of waxing and waning abdominal pain beginning four months ago. The patient was seen by her cycle consultant just prior to arrival and was referred to the ED. She has a gastric bypass revision about five months ago due to a mesh formation. She had her initial gastric bypass eight years ago. The patient had an internal hernia repair surgery four months ago in [place] as well. She also complains of diarrhea, nausea and vomiting. She states that she occasionally has very dark colored stool, but denies melena. The patient states that she has followed up once since her surgeries and had her stool tested which was normal. She notes that she has not seen her surgeon since as she was in [place] for the past five months. She did see a doctor in [place] but it was not the same doctor who performed the surgery. She has not followed up with [facility] that she was out of the country. She states she followed up with her Livia Katz at Dr. ureña's office today with gastroenterology. She states that Livia had sent her here for CT scanning and blood work and pain control. She denies any bloody stool, known fevers, or urinary symptoms. The patient describes her current pain as "sharp". She states that her pain has been present every day for the past 4 months, but is worse on certain days. Source of History: patient Onset: Four months ago Position: abdomen Quality: sharp Timing: waxes/wanes Associated Symptoms: + nausea, + vomiting, + diarrhea, No fevers (known), No melena, No hematochezia, No urinary symptoms Review of Systems See HPI for pertinent positives & negatives. A total of 10 systems reviewed and were otherwise negative. Past Medical & Surgical Medical Problems: (1) Anemia (2) Anxiety (3) Benign hypertension (4) section (5) Depression (6) Disorder of gallbladder (7) gastric bypass (8) Heart disease (9) History of endoscopy (10) MIGRAINE UNSPECIFIED W/O INTRACT MGRN W/O STATUS MIGRAINOSUS (11) Panic disorder (12) PSVT (paroxysmal supraventricular tachycardia) (13) stomach band (14) stomach problems (15) urinary problems Surgical Problems: (1) History of colonoscopy Family History Patient reports no known family medical history. Social History Smoking Status: Current Every Day Smoker Alcohol Use: none Drug Use: none Marital Status: Housing Status: lives with family Occupation Status: unemployed Current/Historical Medications Scheduled Alprazolam (Xanax), 0.5 MG PO TID Divalproex Sodium (Depakote Etended-Release), 250 MG PO BID Esomeprazole Magnesium (Nexium), 20 MG PO DAILY Quetiapine Fumarate (Seroquel), 100 MG PO HS Trazodone HCl (Trazodone HCl), 100 MG PO HS Allergies Coded Allergies: No Known Allergies (Unverified , 07/02/17) Physical Exam Vital Signs Date Time Temp Pulse Resp B/P (MAP) Pulse Ox O2 Delivery O2 Flow Rate FiO2 07/02/17 16:17 70 16 131/70 99 Room Air 07/02/17 14:31 68 18 116/87 99 Room Air 07/02/17 12:42 37.0 72 18 135/87 99 Room Air Physical Exam Constitutional: Vital signs reviewed. Well-appearing. Does not appear to be in any distress. Eyes: Pupils are equal round reactive to light. Conjunctiva are noninjected. ENT: Pharynx is clear without erythema or exudate. Mucous membranes are moist. Neck supple without meningeal signs. Respiratory: Clear to auscultation bilaterally. Breath sounds are equal bilaterally. Cardiovascular: Regular rate and rhythm. No rubs or gallops. GI: LLQ and epigastric tenderness to palpation. No rebound or guarding. Bowel sounds are present. Musculoskeletal: No peripheral edema. No lower extremity tenderness. No CVA tenderness. Integumentary: No cyanosis. Neurological: The patient is awake and alert. No focal deficits. Normal motor and sensation of the lower extremities. Psychiatric: Normal affect. Medical Decision & Procedures ER Provider Diagnostic Interpretation: CT results as stated below per my review and radiologist interpretation. ABD/PELVIS IV AND ORAL CONT FINDINGS: Groundglass and linear consolidative opacities of the lung bases suggest atelectasis. There is no pneumoperitoneum. Imaged inferior cardiac chambers are unremarkable. Liver, gallbladder, spleen, pancreas and adrenal glands are unremarkable. Kidneys, ureters, urinary bladder and uterus are unremarkable. The previously described 3.5 cm left ovarian cyst is no longer identified. Peripherally enhancing cystic structure within the region of the right adnexum, 1.5 cm suggesting involuting follicle. Abdominal aorta is normal in both course and caliber. No bulky retroperitoneal adenopathy. Postsurgical changes of prior Marion-en-Y gastric bypass. No oral contrast seen within the excluded stomach. Oral contrast is seen within the jejunal jejunal anastomosis. No evidence of complication or bowel obstruction. Previously described swelling and stranding of the left lower mesentery on study dated 02/26/2017 is no longer appreciated. Scattered nonenlarged mildly prominent lymph nodes throughout the mid mesentery likely physiologic. The appendix appears normal. Soft tissues are unremarkable. Decreased amount of soft tissue stranding is seen within the left upper anterior abdominal wall as seen on image 160 of series 3. Moderate facet arthropathy of the lower lumbar spine. Bones appear intact. IMPRESSION: 1. Postsurgical changes of prior Marion-en-Y gastric bypass. No evidence of postsurgical complication or bowel obstruction. 2. Previously described inflammatory changes and swirling of the left lower mesentery on study dated 02/26/2017 is no longer appreciated. A few scattered mildly prominent mesenteric lymph nodes are seen suggesting physiologic changes or resolving mesenteritis. 3. Normal appendix. 4. Resolution of the previously described 3.5 cm left ovarian cystic lesion. The above report was generated using voice recognition software. It may contain grammatical, syntax or spelling errors. Electronically signed by: Harry Walker M.D. 07/02/2017 3:50 PM Laboratory Results 07/02/17 13:34 Red Blood Count 4.29, Mean Corpuscular Volume 93.7, Mean Corpuscular Hemoglobin 32.4, Mean Corpuscular Hemoglobin Concent 34.6, Mean Platelet Volume 11.6, Neutrophils (%) (Auto) 44.3, Lymphocytes (%) (Auto) 47.5, Monocytes (%) (Auto) 7.2, Eosinophils (%) (Auto) 0.8, Basophils (%) (Auto) 0.2, Neutrophils # (Auto) 2.94, Lymphocytes # (Auto) 3.15, Monocytes # (Auto) 0.48, Eosinophils # (Auto) 0.05, Basophils # (Auto) 0.01 07/02/17 13:34 Test 07/02/17 00:00 07/02/17 13:10 07/02/17 13:34 Urine Opiates Screen NEG (NEG) Urine Methadone, Qualitative NEG (NEG) Urine Barbiturates NEG (NEG) Urine Phencyclidine (PCP) Level NEG (NEG) Ur Amphetamine/Methamphetamine NEG (NEG) MDMA (Ecstasy) Screen NEG (NEG) Urine Benzodiazepines Screen POS (NEG) Urine Cocaine Metabolite NEG (NEG) Urine Marijuana (THC) NEG (NEG) Urine Color YELLOW Urine Appearance CLEAR (CLEAR) Urine pH 5.0 (4.5-7.5) Urine Specific Scurry 1.024 (1.000-1.030) Urine Protein NEG (NEG) Urine Glucose (UA) NEG (NEG) Urine Ketones NEG (NEG) Urine Occult Blood NEG (NEG) Urine Nitrite NEG (NEG) Urine Bilirubin NEG (NEG) Urine Urobilinogen NEG (NEG) Urine Leukocyte Esterase NEG (NEG) Urine Test NEG (NEG) White Blood Count 6.63 K/uL (4.8-10.8) Red Blood Count 4.29 M/uL (4.2-5.4) Hemoglobin 13.9 g/dL (12.0-16.0) Hematocrit 40.2 % (37-47) Mean Corpuscular Volume 93.7 fL (80-100) Mean Corpuscular Hemoglobin 32.4 pg (25-34) Mean Corpuscular Hemoglobin Concent 34.6 g/dl (32-36) Platelet Count 239 K/uL (130-400) Mean Platelet Volume 11.6 fL (7.4-10.4) Neutrophils (%) (Auto) 44.3 % Lymphocytes (%) (Auto) 47.5 % Monocytes (%) (Auto) 7.2 % Eosinophils (%) (Auto) 0.8 % Basophils (%) (Auto) 0.2 % Neutrophils # (Auto) 2.94 K/uL (1.4-6.5) Lymphocytes # (Auto) 3.15 K/uL (1.2-3.4) Monocytes # (Auto) 0.48 K/uL (0.11-0.59) Eosinophils # (Auto) 0.05 K/uL (0-0.5) Basophils # (Auto) 0.01 K/uL (0-0.2) RDW Standard Deviation 48.7 fL (36.4-46.3) RDW Coefficient of Variation 14.4 % (11.5-14.5) Immature Granulocyte % (Auto) 0.0 % Immature Granulocyte # (Auto) 0.00 K/uL (0.00-0.02) Anion Gap 5.0 mmol/L (3-11) Est Creatinine Clear Calc Drug Dose 126.9 ml/min Estimated GFR () 124.9 Estimated GFR (Non- 107.8 BUN/Creatinine Ratio 16.5 (10-20) Calcium Level 9.0 mg/dl (8.5-10.1) Total Bilirubin 0.3 mg/dl (0.2-1) Direct Bilirubin < 0.1 mg/dl (0-0.2) Aspartate Amino Transf (AST/SGOT) 12 U/L (15-37) Alanine Aminotransferase (ALT/SGPT) 11 U/L (12-78) Alkaline Phosphatase 64 U/L (45-117) Total Protein 7.9 gm/dl (6.4-8.2) Albumin 3.7 gm/dl (3.4-5.0) Lipase 134 U/L (73-393) Laboratory results as reviewed by me. Medications Administered Medications (Trade) Dose Ordered Sig/Beth Route Start Time Stop Time Status Last Admin Dose Admin Famotidine (Pepcid 20mg/100 ml) 20 mg ONE STAT IV 07/02/17 13:07 07/02/17 13:10 DC 07/02/17 13:22 20 MG Hyoscyamine Sulfate (Levsin Tab) 0.125 mg NOW STAT SL 07/02/17 13:07 07/02/17 13:10 DC 07/02/17 13:22 0.125 MG Heparin Sodium (Porcine) (Heparin 100 Unit/ml 5ml Flush) 5 ml STK-MED ONCE .ROUTE 07/02/17 16:17 07/02/17 16:18 DC 07/02/17 16:22 5 ML ED Course 1254: The patient was evaluated in room A9B. A complete history and physical exam was performed. 1307: Ordered Levsin Tab 0.125 mg SL, Pepcid 20 mg/100 mL IV. 1410: I reassessed the patient. She has had no change in symptoms. I discussed her test results with her. The patient is currently drinking contrast. 1606: Upon reevaluation, the patient appeared to have improvement of her symptoms. I discussed tonight's findings with her. She verbalized agreement of the treatment plan. The patient was discharged home. Medical Decision This is a 47-year-old female who presents with chronic abdominal pain. Differential diagnosis includes peptic ulcer disease, surgical complication, adhesions, enteritis, irritable bowel syndrome, malingering. I did perform a limited focused review of portions of the patient's old chart on the electronic medical record. The patient was seen here in February and had a CT Abdomen & Pelvis for abdominal pain. She was noted to have possible mesenteritis vs. hernia and was transferred to [facility]. I did evaluate the patient as noted above. The patient is presenting with chronic abdominal pain and diarrhea. She states that she was sent here by Livia from gastroenterology for CT scan, blood work and pain control. She is requesting IV Dilaudid and states that she received that the last time she was here. I did explain to her that I did not feel comfortable giving her IV Dilaudid but I was happy to treat her as best I could with nonnarcotic medications. I was also happy to perform the workup as requested. IV access was established. I did treat the patient with IV Pepcid. She was also given Levsin. I did order and personally review the patient's urinalysis as described above. I did order and review the patient's blood work as noted in the electronic medical record. Her white blood cell count is not elevated. She is not anemic. LFTs and lipase are unremarkable. I did order a CT of the abdomen and pelvis. I did review the images myself as well as the radiology report as described above. I did speak to Livia from gastroenterology. She states to me that she did not in fact send the patient over for evaluation. That was a decision made by the patient herself. Her plan was to perform an outpatient CT and blood work but she stated that she told the patient she would be best served by following up with surgeon at [facility] as her symptoms seem to be derived from her prior surgeries. I did further review her old chart and noted that she is to be seen here under a different name and was frequently seen for migraine headaches and displayed significant narcotic seeking behavior at those times. I did recommend she follow up with her regular doctor as well as her surgeon at [place] for further evaluation. She was discharged in good condition. Medication Reconcilliation Current Medication List: was personally reviewed by me Blood Pressure Screening Patient's blood pressure: Elevated blood pressure Blood pressure disposition: Referred to PCP Consults Time Called: 1410 Consulting Physician: Livia Syed Returned Call: 1419 I spoke with Livia Katz PA-C of GI. We discussed the patient and her results. Livia Katz states that the patient was not referred to the ED. She explains that the patient was being assessed and was offered outpatient CT and labs, but the patient told her that she would just go to the ED. Impression Primary Impression: Chronic abdominal pain Additional Impression: Chronic diarrhea Scribe Attestation The scribe's documentation has been prepared under my direct and personally reviewed by me in its entirety. I confirm that the note above accurately reflects all work, treatment, procedures, and medical decision making performed by me. Departure Information Dispostion Home / Self-Care Referrals No Doctor, Assigned (PCP) Forms Call Back Authorization, HOME CARE DOCUMENTATION FORM, IMPORTANT VISIT INFORMATION Patient Instructions ED Abdominal Pain Unkn Cause, My [facility] Additional Instructions You have been examined and treated today on an emergency basis only. This is not a substitute for, or an effort to provide, complete comprehensive medical care. It is impossible to recognize and treat all injuries or illnesses in a single emergency department visit. It is therefore important that you follow up closely with your physician. Call as soon as possible for an appointment. Return for worsening symptoms or if you develop fever, vomiting, or any other concerning symptoms. Problem Qualifiers
[2017-07-05 07:46] LABS: HYDROXYETHYLFLURAZEPAM CONF NEGATIVE NG/ML (CUTOFF=50); HYDROXYMIDAZOLAM NEGATIVE NG/ML (CUTOFF=50); HYDROXYTRIAZOLAM CONF NEGATIVE NG/ML (CUTOFF=50); TEMAZEPAM CONF NEGATIVE NG/ML (CUTOFF=50)
== END 2017-07-02 16:27 | disposition home or self-care (01) ==
LOC: C.EDB 12:29 → C.EDA 16:27
DX: R10.9 Unspecified abdominal pain (principal); G89.29 Other chronic pain; R19.7 Diarrhea, unspecified; Z98.84 Bariatric surgery status; D64.9 Anemia, unspecified; I10 Essential (primary) hypertension; F32.9 Major depressive disorder, single episode, unspecified; F41.0 Panic disorder [episodic paroxysmal anxiety]; F17.210 Nicotine dependence, cigarettes, uncomplicated; Z79.899 Other long term (current) drug therapy

== ENCOUNTER → 2017-08-07 | Day surgery (SDC) | payer OTHER ==
[2017-07-25 11:01] VITALS: BMI 34.0
[~2017-08-07] VITALS: Ht 162.6 cm; Wt 90.0 kg
[~2017-08-07] MED LIST changes: -ACET-1256 PO; +BUSPAR PO; +CITA10TA4 PO; +DPKSR/500 PO; -DSY100 PO; +ESOM20CA PO; +FENTANYL CITRATE INJ 50 MCG/1 ML 2 ML VIAL ONE; +HYDR-4079 PO; +LIDOCAINE HCL 2% 2 ML VIAL (20MG/ML) ONE; +MIDAZOLAM HCL 1 MG/ML 2ML VIAL ONE; +PROPOFOL IV EMULSION 10 MG/ML 20 ML VIAL IV ONE; -PRT/40 PO; +QUET1TAB32 PO; +ROSU20TA PO; +SODIUM CHLORIDE 0.9% 500ML 500 ML IV ONE; +TRAZ-119 PO; +TRAZ50TA35 PO
[2017-08-07 09:48] VITALS: Ht 162.6 cm; Wt 90.0 kg
--- NOTE | 2017-08-07 10:34 | Endo History and Physical ---
History & Physical Date of Service: Aug 07, 2017. Chief Complaint: ABD PAIN AND DIARRHEA Referring Physician: ESTEFANY VALLADARES History of Present Illness 47 yo female who presents for colonoscopy secondary to abdominal pain and diarrhea. Past Medical History Anxiety, High Cholesterol, Hypertension, Depression Past Surgical History Hx Cardiac Surgery: Yes (CARDIAC ABLATION) Hx Internal Defibrillator: No Hx Pacemaker: No Hx Abdominal Surgery: Yes (ABDOMINAL BAND AND REMOVAL,GASTRIC BYPASS WITH REVISIONS, X 2) Hx of Implantable Prosthesis: No Hx Post-Op Nausea and Vomiting: No Hx Cancer Surgery: No Hx Thoracic Surgery: No Hx Orthopedic: No Hx Urinary Tract Surgery: No Family History Polyp Social History Smoking Status: Current Every Day Smoker Hx Substance Use: Yes (NORCO PRN) Hx Alcohol Use: No Allergies Coded Allergies: No Known Allergies (Unverified , 08/07/17) Current Medications Reported Home Medications Medications Dose Route/Sig Max Daily Dose Days Date Category Dose Instructions [place] 10MG/325MG (Acetaminophen/Hydrocodone Bitart) Tab 1 Tab PO Q4-6H PRN 07/25/17 Reported PRN PAIN Crestor (Rosuvastatin Calcium) 20 Mg Tab 20 Mg PO HS 07/25/17 Reported Citalopram Hydrobromide 10 Mg Tab 1 Tab PO QAM 07/25/17 Reported [Buspar] 5 Mg PO QAM 07/25/17 Reported Trazodone (Trazodone HCl) 50 Mg Tab 0.5 Tab PO NOON 07/25/17 Reported Seroquel (Quetiapine Fumarate) 50 Mg Tab 0.5 Tab PO QAM 07/25/17 Reported Desyrel (Trazodone Hcl) 50 Mg Tab 2 Tabs PO HS 07/25/17 Reported Nexium (Esomeprazole Magnesium) 20 Mg Capcr 20 Mg PO QAM 07/02/17 Reported Depakote Etended-Release (Divalproex Sodium) 500 Mg Tabcr 250 Mg PO BID 07/02/17 Reported Seroquel (Quetiapine Fumarate) 50 Mg Tab 2 Tabs PO HS 02/26/17 Reported Xanax (Alprazolam) 1 Mg Tab 0.5 Mg PO TID 11/25/16 Reported Vital Signs Weight (Kilograms): 90.00 Height (Feet): 5 Height (Inches): 4 Date Time Temp Pulse Resp B/P (MAP) Pulse Ox O2 Delivery O2 Flow Rate FiO2 08/07/17 09:54 36.7 81 16 117/75 (89) 99 Room Air Physical Exam General Appearance: WD/WN, no apparent distress Respiratory/Chest: Auscultation: breath sounds normal Cardiovascular: Heart Auscultation: RRR Abdomen: Bowel Sounds: normal Inspection & Palpation: soft, non-distended, no tenderness, guarding & rebound Assessment and Plan Assessment: 47 yo female who presents for colonoscopy secondary to abdominal pain and diarrhea. Plan: Proceed with colonoscopy.
--- NOTE | 2017-08-07 11:09 | Anesthesiology Progress Note ---
Anesthesia Post Op Note Date & Time Aug 07, 2017 at 11:09 Vital Signs Pain Intensity: 0 Vital Signs Past 12 Hours Date Time Temp Pulse Resp B/P (MAP) Pulse Ox O2 Delivery O2 Flow Rate FiO2 08/07/17 10:53 72 16 109/70 (83) 97 Room Air 08/07/17 09:54 36.7 81 16 117/75 (89) 99 Room Air Notes Mental Status: alert / awake / arousable, participated in evaluation Pt Amnestic to Procedure: Yes Nausea / Vomiting: adequately controlled Pain: adequately controlled Airway Patency, RR, SpO2: stable & adequate BP & HR: stable & adequate Hydration State: stable & adequate Anesthetic Complications: no major complications apparent
--- NOTE | 2017-08-07 11:23 | Discharge Instructions ---
Endoscopy Patient Instructions Date / Procedure(s) Performed Aug 07, 2017. EGD Allergy Information Coded Allergies: No Known Allergies (Unverified , 08/07/17) Discharge Date / Findings Aug 07, 2017. Anastomotic ulcer s/p biopsies Medication Instructions 1) Start Carafate 1g by mouth four times daily prior to each meal and at bedtime. 2) OK to resume all medications today as prescribed Reported Home Medications Medications Dose Route/Sig Max Daily Dose Days Date Category Dose Instructions [place] 10MG/325MG (Acetaminophen/Hydrocodone Bitart) Tab 1 Tab PO Q4-6H PRN 07/25/17 Reported PRN PAIN Crestor (Rosuvastatin Calcium) 20 Mg Tab 20 Mg PO HS 07/25/17 Reported Citalopram Hydrobromide 10 Mg Tab 1 Tab PO QAM 07/25/17 Reported [Buspar] 5 Mg PO QAM 07/25/17 Reported Trazodone (Trazodone HCl) 50 Mg Tab 0.5 Tab PO NOON 07/25/17 Reported Seroquel (Quetiapine Fumarate) 50 Mg Tab 0.5 Tab PO QAM 07/25/17 Reported Desyrel (Trazodone Hcl) 50 Mg Tab 2 Tabs PO HS 07/25/17 Reported Nexium (Esomeprazole Magnesium) 20 Mg Capcr 20 Mg PO QAM 07/02/17 Reported Depakote Etended-Release (Divalproex Sodium) 500 Mg Tabcr 250 Mg PO BID 07/02/17 Reported Seroquel (Quetiapine Fumarate) 50 Mg Tab 2 Tabs PO HS 02/26/17 Reported Xanax (Alprazolam) 1 Mg Tab 0.5 Mg PO TID 11/25/16 Reported Provider Instructions Activity Restrictions - No exercising or heavy lifting for 24 hours. - Do not drink alcohol the day of the procedure. - Do not drive a car or operate machinery until the day after the procedure. - Do not make any important decisions or sign important papers in 24 hours after the procedure. Following Day: - Return to full activity which may include returning to work/school. Diet Start your diet with liquids and light foods (jello, soup, juice, toast). Then eat your usual diet if not nauseated. Treatment For Common After Affects For mild abdominal pain, bloating, or excessive gas: - Rest - Eat lightly - Lie on right side Follow-Up Information Follow-up with ESTEFANY VALLADARES as scheduled Anesthesia Information What You Should Know You have had a procedure that required some medicine to reduce anxiety and discomfort. This treatment is called moderate sedation. After receiving the treatment, you may be sleepy, but you will be able to breathe on your own. The effects of the treatment may last for several hours. Follow these instructions along with Activity/Diet recommendations noted above: * Do NOT do anything where dizziness or clumsiness would be dangerous. * Rest quietly at home today, then you can be up and about tomorrow. * Have a responsible person stay with you the rest of today. * You may have had an I.V. today. If so, you may take the dressing off later today. Recommendations Call your doctor if: * Trouble breathing * Continuous vomiting for more than 24 hours * Temperature above 101 degrees * Severe abdominal pain or bloating * Pain not relieved by pain medicine ordered * There is increased drainage or redness from any incision * A large amount of rectal bleeding greater than 2-3 tablespoons. (If you had a polyp/s removed or have hemorrhoids, a small amount of blood - from the rectum is to be expected.) * You have any unanswered questions or concerns. IN THE EVENT OF A SERIOUS EMERGENCY, GO TO THE NEAREST EMERGENCY ROOM Your discharge instructions were prepared by provider Pipo Wong. Patient Instructions Signature Page Paula Joaquin Patient (or Guardian) Signature/Date: I have read and understand the instructions given to me by my caregivers. Caregiver/RN/Doctor Signature/Date: The above-named patient and/or guardian has received patient instructions on this date. + Original Patient Signature Page (only) stays with chart. Please make copy for patient.
[2017-08-07 11:55] VITALS: BP 121/75; PULSE 78; O2SAT 98
--- NOTE | 2017-08-07 11:55 | GI REPORT ---
Procedure Date: 08/07/2017 10:33 AM Procedure: Upper GI endoscopy Indications: Epigastric abdominal pain Medicines: Monitored Anesthesia Care Complications: No immediate complications. Estimated Blood Loss: Estimated blood loss: none. Procedure: Pre-Anesthesia Assessment: - Prior to the procedure, a History and Physical was performed, and patient medications and allergies were reviewed. The patient's tolerance of previous anesthesia was also reviewed. The risks and benefits of the procedure and the sedation options and risks were discussed with the patient. All questions were answered, and informed consent was obtained. Prior Anticoagulants: The patient has taken no previous anticoagulant or antiplatelet agents. ASA Grade Assessment: II - A patient with mild systemic disease. After reviewing the risks and benefits, the patient was deemed in satisfactory condition to undergo the procedure. After obtaining informed consent, the endoscope was passed under direct vision. Throughout the procedure, the patient's blood pressure, pulse, and oxygen saturations were monitored continuously. The scope was introduced through the mouth, and advanced to the jejunum. The upper GI endoscopy was accomplished without difficulty. The patient tolerated the procedure well. Findings: The esophagus was normal. Evidence of a Marion-en-Y gastrojejunostomy was found. The gastrojejunal anastomosis was characterized by ulceration. This was traversed. Biopsies were taken with a cold forceps for histology. The examined jejunum was normal. Impression: - Normal esophagus. - Marion-en-Y gastrojejunostomy with gastrojejunal anastomosis characterized by ulceration. Biopsied. - Normal examined jejunum. Recommendation: - Resume previous diet. - Continue present medications. - Use sucralfate suspension 1 gram PO QID. - Await pathology results. - Return to primary care physician as previously scheduled. Pipo Wong DO 08/07/2017 11:55:09 AM This report has been signed electronically. Note Initiated On: 08/07/2017 10:33 AM I attest to the content of the Intraoperative Record and orders documented therein, exceptions below
== END | disposition home or self-care (01) ==
LOC: C.GI 09:30
PROVIDERS: ATTEND Internal Medicine
DX: R10.13 Epigastric pain (principal); R19.7 Diarrhea, unspecified; Z98.84 Bariatric surgery status; M19.90 Unspecified osteoarthritis, unspecified site; F41.9 Anxiety disorder, unspecified; F32.9 Major depressive disorder, single episode, unspecified; F17.200 Nicotine dependence, unspecified, uncomplicated; E66.9 Obesity, unspecified; Z68.34 Body mass index [BMI] 34.0-34.9, adult; Z98.890 Other specified postprocedural states; Z79.899 Other long term (current) drug therapy; Z83.71 Family history of colonic polyps

== ENCOUNTER 2017-10-01 14:18 | Emergency (ER) | payer OTHER ==
[~2017-10-01] VITALS: Ht 162.6 cm; Wt 92.0 kg
[~2017-10-01 14:18] MED LIST changes: -FENTANYL CITRATE INJ 50 MCG/1 ML 2 ML VIAL ONE; -LIDOCAINE HCL 2% 2 ML VIAL (20MG/ML) ONE; -MIDAZOLAM HCL 1 MG/ML 2ML VIAL ONE; -PROPOFOL IV EMULSION 10 MG/ML 20 ML VIAL IV ONE; -QUET5TAB PO; -SODIUM CHLORIDE 0.9% 500ML 500 ML IV ONE
[2017-10-01 14:23] VITALS: TEMP 37.1; Ht 162.6 cm; Wt 92.0 kg
[2017-10-01] MEDS ORDERED: SODIUM CHLORIDE 0.9% 1000ML 1,000 ML IV STA (14:25)
[2017-10-01] MEDS ORDERED: ONDANSETRON INJ 2 MG/ML 2 ML VIAL IV STA (14:25)
--- NOTE | 2017-10-01 14:32 | EMERGENCY ROOM VISIT NOTE ---
History Report prepared by Jerri: Sagar Middleton Under the Supervision of: Dr. Merced Miranda M.D. First contact with patient: 14:21 Stated Complaint: ADBOMINAL PAIN History of Present Illness The patient is a 47 year old female with a history of ulcers and C. difficile who presents to the Emergency Room with complaints of worsening abdominal pain over the past few months. She states that she had a gastric bypass revision surgery in January, and in February had hernia surgery. The patient says that since the surgeries, she has been having diarrhea daily, in addition to abdominal pain. She states that she has been vomiting a lot, and per the patient's significant other, the patient "vomits as soon as she eats something". The patient says that the pain has been getting worse recently, and she gets intermittent burning all over her lower abdomen. The patient notes that she had an endoscopy with Dr. Wong in July, and the diarrhea has been worsening since then. She says that she has not been worked up by Dr. Wong for the vomiting. She states that she has been in touch with [place] to have a second opinion in addition to a colonoscopy. Source of History: patient, spouse/significant other Onset: Over past few months Position: abdomen Quality: burning Timing: worsening Associated Symptoms: + vomiting, + diarrhea Note: No other associated symptoms noted. Review of Systems See HPI for pertinent positives & negatives. A total of 10 systems reviewed and were otherwise negative. Past Medical & Surgical Medical Problems: (1) Anemia (2) Anxiety (3) Benign hypertension (4) section (5) Depression (6) Disorder of gallbladder (7) gastric bypass (8) Heart disease (9) History of endoscopy (10) MIGRAINE UNSPECIFIED W/O INTRACT MGRN W/O STATUS MIGRAINOSUS (11) Panic disorder (12) PSVT (paroxysmal supraventricular tachycardia) (13) stomach band (14) stomach problems (15) urinary problems Surgical Problems: (1) History of colonoscopy Family History Patient reports no known family medical history. Social History Smoking Status: Current Every Day Smoker Alcohol Use: none Drug Use: none Marital Status: Housing Status: lives with family Occupation Status: unemployed Current/Historical Medications Scheduled Alprazolam (Xanax), 0.5 MG PO TID Buspirone Hcl (Buspirone Hcl), 1 TAB PO QAM Citalopram Hydrobromide (Citalopram Hydrobromide), 1 TAB PO QAM Esomeprazole Magnesium (Nexium), 20 MG PO QAM Ondansetron (Ondansetron HCl), 4 MG PO PRN UD Quetiapine Fumarate (Seroquel), 1-2 TABS PO HS Quetiapine Fumarate (Seroquel), 0.5 TAB PO QAM Rosuvastatin Calcium (Crestor), 20 MG PO HS Trazodone Hcl (Desyrel), 1-2 TABS PO HS Trazodone Hcl (Trazodone), 0.5 TAB PO NOON Scheduled PRN Oxycodone Hcl (Oxycodone Hcl), 10 MG PO Q6 PRN for Pain Allergies Coded Allergies: No Known Allergies (Unverified , 08/07/17) Physical Exam Vital Signs Date Time Temp Pulse Resp B/P (MAP) Pulse Ox O2 Delivery O2 Flow Rate FiO2 10/01/17 15:44 74 12 133/81 99 Room Air 10/01/17 15:43 74 12 133/81 99 Room Air 10/01/17 14:23 37.1 80 18 120/105 99 Room Air Physical Exam Vital signs reviewed. General: Uncomfortable appearing 47 year old female, in no significant distress. HEENT: No scleral icterus, PERRLA, neck supple. Atraumatic. Cardiovascular: Regular rate and rhythm, no extra sounds. Pulmonary: Clear to auscultation bilaterally, normal work of breathing. Abdomen: Soft, tender left side of abdomen, nondistended, positive bowel sounds. Musculoskeletal: Atraumatic, no peripheral edema. Neurologic: Patient awake alert and oriented x 3 Skin: Warm, dry, no rash Medical Decision & Procedures Laboratory Results Laboratory results per my review. Medications Administered Medications (Trade) Dose Ordered Sig/Beth Route Start Time Stop Time Status Last Admin Dose Admin Sodium Chloride 1,000 ml @ 999 mls/hr Q1H1M STAT IV 10/01/17 14:25 10/01/17 15:25 DC 10/01/17 15:37 999 MLS/HR Ondansetron HCl (Zofran Inj) 4 mg NOW STAT IV 10/01/17 14:25 10/01/17 14:28 DC 10/01/17 15:37 4 MG ED Course 1421: Past medical records reviewed. The patient was evaluated in room C1B. A complete history and physical examination was performed. 1425: Ordered Zofran Inj 4 mg IV, NSS 1000 ml @ 999 mls/hr IV. 1600: I reevaluated the patient and she is resting. She has decided to leave against medical advice. Medical Decision Differential diagnosis: Etiologies such as appendicitis, diverticulitis, PUD, biliary pathology, UTI, pancreatitis, obstruction, mesenteric ischemia, aortic pathology, infections, inflammatory bowel disease, renal colic, as well as others were entertained. This patient was evaluated and appeared to be in no significant distress. The patient had some delay in IV access being obtained as she has an indwelling port. The patient was hydrated with normal saline solution, given IV Tylenol for her pain and IV Zofran. X-rays were ordered as well as a stool and urine. The patient became irate when she realized narcotics would not be administered. Patient has a long-standing history of overdose and narcotic use. She has been belligerent in this emergency department on multiple occasions. I did speak with the patient regarding her concerns. She stated she would have to go home and take her "oxy" because she is in severe pain that I have not addressed here. The patient seems stable on my physical evaluation. I did offer her further management but reassured her that no narcotics would be administered. She signed out AGAINST MEDICAL ADVICE and was discharged to her 's care. She will follow-up with her grout machine operator for further management. Medication Reconcilliation Current Medication List: was personally reviewed by me Blood Pressure Screening Patient's blood pressure: Normal blood pressure Impression Primary Impression: Abdominal pain Additional Impressions: Diarrhea S/P gastric bypass Scribe Attestation The scribe's documentation has been prepared under my direction and personally reviewed by me in its entirety. I confirm that the note above accurately reflects all work, treatment, procedures, and medical decision making performed by me. Departure Information Dispostion Against Medical Advice Referrals No Doctor, Assigned (PCP) Pipo Wong D.O. Forms Call Back Authorization, HOME CARE DOCUMENTATION FORM, IMPORTANT VISIT INFORMATION Additional Instructions Diagnosis: Abdominal pain, diarrhea Please drink plenty of clear fluids. Continue your pain medications as prescribed. Follow-up with your physician for reevaluation. Return to the ER for worsening of symptoms or any medical concerns. Problem Qualifiers
[2017-10-01] MEDS ORDERED: ACETAMINOPHEN IV 100 ML IV STA (14:41)
[2017-10-01] MEDS ORDERED: BUSP5TAB59 PO (15:42)
[2017-10-01] MEDS ORDERED: ONDA4TAB9 PO (15:43)
[2017-10-01] MEDS ORDERED: OXYC-164 PO (15:43)
[2017-10-01 15:44] VITALS: BP 133/81; PULSE 74; O2SAT 99
[2017-10-01] MEDS ORDERED: QUET5TAB PO (18:53)
== END 2017-10-01 16:30 | disposition left against medical advice (07) ==
LOC: EDBD 14:18 → C.EDC 14:20
DX: R10.30 Lower abdominal pain, unspecified (principal); R19.7 Diarrhea, unspecified; Z98.84 Bariatric surgery status; R11.10 Vomiting, unspecified; K87 Disorders of gallbladder, biliary tract and pancreas in diseases classified elsewhere; F17.200 Nicotine dependence, unspecified, uncomplicated

== ENCOUNTER → 2017-10-25 | Outpatient (CLI) | payer OTHER ==
[~2017-10-25] MED LIST changes: +BUSP5TAB59 PO; -BUSPAR PO; -DPKSR/500 PO; -HYDR-4079 PO; +ONDA4TAB9 PO; +OXYC-164 PO; +QUET5TAB PO
--- NOTE | 2017-10-25 12:51 | DIAGNOSTIC IMAGING REPORT ---
CT SINUSES-MAXILLOFACIAL W/O CLINICAL HISTORY: CHRONIC SINUSISTIS COMPARISON STUDY: 05/21/2014 TECHNIQUE: CT scan of the paranasal sinuses was performed in the axial plane. Coronal reconstructed images were obtained and reviewed. A dose lowering technique was utilized adhering to the principles of ALARA. CT DOSE: 661.60 mGy.cm FINDINGS: No orbital lesions are visualized. There is no hydrocephalus. The mastoids and middle ear cavities appear symmetrically aerated. There is a 15 mm polypoid mucosal densities within the left sphenoid. There is mild mucosal disease involving a left posterior ethmoid air cell. The frontal sinuses are clear. There is very minimal mucosal thickening involving the maxillary sinuses. The ostiomeatal units are patent bilaterally. The left ethmoid notches protected. The right ethmoid notches is unprotected. The olfactory groove depths are 7 mm bilaterally. The frontal recesses appear patent bilaterally. IMPRESSION: 1. Mild mucosal disease most pronounced within the sphenoid 2. No evidence of acute sinusitis 3. The ostiomeatal units are patent bilaterally Electronically signed by: Cassius Tran M.D. 10/25/2017 12:50 PM Dictated Date/Time: 10/25/2017 12:46 PM
== END | disposition home or self-care (01) ==
LOC: C.CTS 12:37
PROVIDERS: ATTEND Otolaryngology
DX: J32.1 Chronic frontal sinusitis (principal); J32.0 Chronic maxillary sinusitis

== ENCOUNTER → 2017-12-19 | Day surgery (SDC) | payer OTHER ==
[2017-12-17 11:05] VITALS: Ht 162.6 cm; Wt 90.0 kg
--- NOTE | 2017-12-17 11:50 | History and Physical: Surg Cnt ---
History & Physical Date Dec 17, 2017. Chief Complaint sinus infections History of Present Illness The patient is a 47 year old female with complaints of chronic sinusitis, left sphenoid polyp getting larger, more headaches Past Medical/Surgical History Medical Problems: (1) Anemia (2) Anxiety (3) Benign hypertension (4) section (5) Depression (6) Disorder of gallbladder (7) gastric bypass (8) Heart disease (9) History of endoscopy (10) MIGRAINE UNSPECIFIED W/O INTRACT MGRN W/O STATUS MIGRAINOSUS (11) Panic disorder (12) PSVT (paroxysmal supraventricular tachycardia) (13) stomach band (14) stomach problems (15) urinary problems Surgical Problems: (1) History of colonoscopy Additional History Hepatic Disease: No Endocrine Disorder: No Kidney Disease: No Hypertension: No Heart Disease: No Bleeding Tendencies: No Infectious Diseases: No Allergies Coded Allergies: No Known Allergies (Unverified , 12/17/17) Home Medications Scheduled Alprazolam (Xanax), 0.5 MG PO TID Buprenorphine Hcl-Naloxone Hcl (Suboxone 8-2 Mg), 1 DOSE PO TID Esomeprazole Magnesium (Nexium), 20 MG PO QAM Ondansetron (Ondansetron HCl), 4 MG PO PRN UD Quetiapine Fumarate (Seroquel), 25 MG PO BID Quetiapine Fumarate (Seroquel), 50 MG PO HS Rosuvastatin Calcium (Crestor), 20 MG PO HS Trazodone Hcl (Desyrel), 1 TABS PO HS Trazodone Hcl (Trazodone), 0.5 TAB PO BID Physical Examination Skin: warm/dry, no rash Eyes: normal inspection, EOMI, sclerae normal ENT: + pertinent finding (swollen, polyp left sphenoid) Head: normocephalic, atraumatic Neck: supple, no adenopathy, trachea midline Respiratory/Chest: lungs clear, normal breath sounds, no respiratory distress Cardiovascular: regular rate, rhythm, no edema, no murmur Abdomen / GI: normal bowel sounds, non tender Back: normal inspection Extremities: normal inspection, normal range of motion Neurologic/Psych: no motor/sensory deficits, alert, normal reflexes, oriented x 3 Diagnosis chronic sinusitis Plan of Treatment endoscopic sinus surgery
[~2017-12-19] VITALS: Ht 162.6 cm; Wt 90.0 kg
[~2017-12-19] MED LIST changes: +ATROPINE SULFATE 0.1 MG/ML 5ML SYR IV PRN; +BUPR1SUB23 PO; -BUSP5TAB59 PO; +CEFAZOLIN 1000MG IV PUSH 7.5 ML IV SCH; +CEFAZOLIN 2000MG IV PUSH 15 ML IV SCH; -CITA10TA4 PO; +DEXAMETHASONE SOD INJ 4 MG/ML VIAL ONE; +EpINEphrine INJ 1MG/ML AMP 1 MG/ML AMP ONE; +FENTANYL CITRATE INJ 50 MCG/1 ML 2 ML VIAL ONE; +LABETALOL HCL IV 5 MG/ML 20ML IV PRN; +LACTATED RINGER'S 1000ML 1,000 ML IV SCH; +LIDO 2%/EPINEPHRINE 1:100000 20 ML VIAL INFIL ONE; +LIDOCAINE 4% MPF SOAK 5 ML = 1 DOSE TOP ONE; +LIDOCAINE HCL 2% 2 ML VIAL (20MG/ML) ONE; +LIDOCAINE HCL 4% TOP 50 ML VIAL EXT ONE; +MIDAZOLAM HCL 1 MG/ML 2ML VIAL ONE; +ONDANSETRON INJ 2 MG/ML 2 ML VIAL IV PRN; +ONDANSETRON INJ 2 MG/ML 2 ML VIAL ONE; -OXYC-164 PO; +OXYC-57 PO; +OXYCODONE/ACETAMINOPHEN 5-325 TAB PO PRN; +PROPOFOL IV EMULSION 10 MG/ML 20 ML VIAL IV ONE; -QUET1TAB32 PO; +QUET1TAB7 PO
--- NOTE | 2017-12-19 09:55 | History & Physical Bridge Note ---
H&P Re-Evaluation Bridge Note: I have examined the patient, reviewed the History & Physical and in the interval since the performance of the History & Physical I have noted the following changes of clinical significance: No changes noted
--- NOTE | 2017-12-19 11:53 | [facility] Post Operative Brief Note ---
Immediate Operative Summary Operative Date Dec 19, 2017. Pre-Operative Diagnosis Chronic Sinusitis Post-Operative Diagnosis Same Procedure(s) Performed Endoscopic Sinus Surgery, Frontal, Sphenoid, Total Ethmoid, Maxillary Sinuses with [facility] Navigation Surgeon Dr. Hendrix Child Guidance Counselor Surgeon(s) None Estimated Blood Loss 40 ml Findings Consistent with Post-Op Diagnosis Specimens None Drains None Anesthesia Type General Complication(s) none Disposition Accompanied Pt To Recovery: yes Disposition: Recovery Room / PACU
--- NOTE | 2017-12-19 11:55 | Discharge Instructions-SurgCtr ---
Discharge Instructions Date of Service Dec 19, 2017. Visit Reason for Visit: Chronic Sinusitis Discharge Discharge Diagnosis / Problem: same Discharge Goals Goal(s): Therapeutic intervention Medications Stopped Medications Name(s): told not to take meds on DOS Activity Recommendations Activity Limitations: resume your previous activity Anesthesia . Post Anesthesia Instructions: If you have had General Anesthesia or IV Sedation: * Do not drive today. * Resume driving when surgeon permits. * Do not make important decisions or sign legal documents today. * Call surgeon for: 1. Temperature elevations greater than 101 degrees F. 2. Uncontrollable pain. 3. Excessive bleeding. 4. Persistent nausea and vomiting. 5. Medication intolerance (nausea, vomiting or rash). * For nausea and vomiting use only clear liquids such as: tea, soda, bouillon until nausea subsides, then gradually increase diet as tolerated. * If you have any concerns or questions, call your surgeon's office. If physician is unavailable and it is an emergency, call 911 or go to the nearest emergency room. . Instructions / Follow-Up Instructions / Follow-Up ACTIVITY RECOMMENDATIONS: * Being up and around is good, but no strenuous activity, heavy lifting or physical exertion for one week. * Keep your head elevated 30 degrees when lying down or sleeping. * Do not blow your nose for 48 hours, sniff back instead. * Avoid hot showers. OVER THE COUNTER MEDICATIONS: * You may use Tylenol * Avoid aspirin or aspirin containing products, e.g. as they may increase bleeding. SPECIAL CARE INSTRUCTIONS: * Expect to have bloody drainage from your nose and/or down your throat for one to three days. Change drip pad as needed. * Begin irrigating your nose with saline solution today, at least six to ten times per day and sniff back to help remove old clots or crust. * You may experience nasal and facial congestion, pain and pressure, this is normal. * Please call with any significant and/or progressive pain, redness, swelling around the eyes, visual changes, fever of 101.5 degrees F, active bleeding or any problems or concerns. * If active bleeding occurs, spray the nose three times at one minute intervals with Afrin spray and call or cell phone: . If unable to reach the doctor, go to the nearest Emergency Department. Special Diet: * Avoid extremely hot fluids. FOLLOW UP VISIT: Follow-up Visit with Dr. Hendrix If not already scheduled, please call to schedule. Diet Recommendations Home Diet: no limitations Procedures Procedures Performed: Endoscopic Sinus Surgery, Frontal, Sphenoid, Total Ethmoid, Maxillary Sinuses with Brainlab Navigation Pending Studies Studies pending at discharge: no Medical Emergencies . Who to Call and When: Medical Emergencies: If at any time you feel your situation is an emergency, please call 911 immediately. . Non-Emergent Contact Non-Emergency issues call your: Primary Care Provider . . "Provider Documentation" section prepared by Henna Hendrix. . [place] Drug Monitoring Program Search Results: no issues identified
--- NOTE | 2017-12-19 12:06 | [facility] Operative Report ---
Operative Report Operative Date Dec 19, 2017. Pre-Operative Diagnosis Chronic Sinusitis Post-Operative Diagnosis Same Procedure(s) Performed Endoscopic Sinus Surgery, Frontal, Sphenoid, Total Ethmoid, Maxillary Sinuses with [employer] Navigation Surgeon Dr. Hendrix Shiftman Surgeon(s) None Estimated Blood Loss 40 ml Specimens None Drains None Anesthesia Type General Complication(s) none Disposition yes Recovery Room / PACU Indications 47-year-old female with recurrent chronic sinusitis with significant sinus headaches CT scan over the last 4 years documented increasing polyp in the left sphenoid sinus also found to have significant mucosal thickening in the ethmoids blocking the nasal frontal ducts Description of Procedure The patient was brought to the operating room and placed in the supine position. She was prepped and draped in the usual sterile manner. Microsaic device was calibrated and used for the entire procedure. The nose was decongested using cottonoids with a topical solution of 4 cc of 4% Xylocaine mixed with 1 cc of epinephrine. Injection of 1% Xylocaine with 1-100,000 strength epinephrine was also used. The left sphenoid was cannulated with the guidewire with Microsaic computer guidance and dilated using the 6 mm balloon. Thick tenacious fluid was suctioned from the left sphenoid sinus. Right sphenoid sinus was dilated in similar manner. The left maxillary sinus was cannulated with guidewire and dilated using the 6 mm balloon as was the right maxillary sinus. The left nasal frontal duct was cannulated with the guidewire with Microsaic computer guidance and dilated using the 6 mm balloon. The guidewire was left in place as a marker for frontal sinusotomy as the catheter was withdrawn. Frontal sinusotomy was performed using the shaver couple with the Microsaic device removing the anterior wall in the posterior wall of the agger nasi cell opening up the nasal frontal duct leaving the mucosa there intact. At this point total ethmoidectomy was performed with the shaver couple with the Microsaic device opening up the bullae ethmoidalis then going through the ground lamella into the posterior ethmoid air cells delineating the posterior most ethmoid air cell along with the skull base and lamina papyracea and then following the structures anteriorly exonerating all the posterior and all the anterior ethmoid air cells. The left sphenoid was opened by removing the inferior border of the left superior turbinate and then opening up the sphenoid ostia superiorly and laterally using the shaver, then the sphenoid was suctioned clean of mucus, finding no evidence of the polyp, finding thick mucus which explains the finding on CT scan. The right frontal sinusotomy total ethmoidectomy sphenoidotomy and maxillary sinus antrostomy was performed in a similar manner on the right side. The right nasal frontal duct could not be found initially and had to be opened by using the shaver to remove the anterior wall and the posterior wall of the agger nasi cell to locate the nasal frontal duct which was then cannulated with the guidewire with Microsaic computer guidance and then dilated using the balloon. The remainder of the frontal sinusotomy total ethmoidectomy sphenoidotomy and maxillary sinus antrostomy was performed in a similar manner. Contour stents were placed in the nasal frontal duct and a single propel stent was placed into the left ethmoid cavity into the left sphenoid. The patient tired procedure well and was taken recovery area in satisfactory condition. I attest to the content of the Intraoperative Record and any orders documented therein. Any exceptions are noted below.
[2017-12-19] MEDS: HYDROmorphone INJ 0.5 MG/0.5 ML SYR IV PRN ×3 (12:15→12:30)
--- NOTE | 2017-12-19 13:27 | Anesthesia Progress Nt - [facility] ---
Anesthesia Post Op Note Date & Time Dec 19, 2017 at 13:27 Vital Signs Vital Signs Past 12 Hours Date Time Temp Pulse Resp B/P (MAP) Pulse Ox O2 Delivery O2 Flow Rate FiO2 12/19/17 12:51 37 81 16 113/73 (86) 97 Room Air 12/19/17 12:47 69 18 12/19/17 12:47 68 18 97 12/19/17 12:46 130/72 12/19/17 12:42 76 12 12/19/17 12:42 79 12 97 12/19/17 12:41 127/82 12/19/17 12:38 78 17 12/19/17 12:38 76 17 98 12/19/17 12:36 125/85 12/19/17 12:35 37.0 75 12 125/85 98 Room Air 12/19/17 12:33 78 12 12/19/17 12:33 78 12 99 12/19/17 12:32 84 12 100 12/19/17 12:32 82 12 12/19/17 12:31 141/75 12/19/17 12:27 72 19 12/19/17 12:27 76 19 100 12/19/17 12:26 126/72 12/19/17 12:22 76 10 12/19/17 12:22 76 10 100 12/19/17 12:21 124/75 12/19/17 12:17 70 13 100 12/19/17 12:17 71 13 12/19/17 12:16 141/77 12/19/17 12:14 74 16 100 12/19/17 12:14 74 16 12/19/17 12:11 142/66 12/19/17 12:09 75 18 100 12/19/17 12:09 75 18 12/19/17 12:08 74 17 100 12/19/17 12:08 76 17 12/19/17 12:06 139/76 12/19/17 12:03 81 27 12/19/17 12:03 80 27 100 12/19/17 12:01 140/79 12/19/17 11:59 144/79 12/19/17 11:58 37.0 87 16 144/79 100 Humidified Oxygen 6 Diffusion Mask 12/19/17 11:58 90 9 12/19/17 11:58 90 9 100 12/19/17 09:21 37.1 95 20 117/84 (95) 97 Room Air Notes Mental Status: alert / awake / arousable, participated in evaluation Pt Amnestic to Procedure: Yes Nausea / Vomiting: adequately controlled Pain: adequately controlled Airway Patency, RR, SpO2: stable & adequate BP & HR: stable & adequate Hydration State: stable & adequate Anesthetic Complications: no major complications apparent
[2017-12-19 13:37] VITALS: BP 137/84; PULSE 76; O2SAT 96
== END | disposition home or self-care (01) ==
LOC: X.SURG 09:05
PROVIDERS: ATTEND Otolaryngology
DX: J32.9 Chronic sinusitis, unspecified (principal); G89.29 Other chronic pain; I10 Essential (primary) hypertension; F41.9 Anxiety disorder, unspecified; F32.9 Major depressive disorder, single episode, unspecified; F17.200 Nicotine dependence, unspecified, uncomplicated; Z98.84 Bariatric surgery status; Z79.891 Long term (current) use of opiate analgesic; Z79.899 Other long term (current) drug therapy

== ENCOUNTER 2018-01-02 12:40 | Emergency (ER) | payer OTHER ==
[~2018-01-02 12:40] MED LIST changes: -ATROPINE SULFATE 0.1 MG/ML 5ML SYR IV PRN; -CEFAZOLIN 1000MG IV PUSH 7.5 ML IV SCH; -CEFAZOLIN 2000MG IV PUSH 15 ML IV SCH; -DEXAMETHASONE SOD INJ 4 MG/ML VIAL ONE; -EpINEphrine INJ 1MG/ML AMP 1 MG/ML AMP ONE; -FENTANYL CITRATE INJ 50 MCG/1 ML 2 ML VIAL ONE; -LABETALOL HCL IV 5 MG/ML 20ML IV PRN; -LACTATED RINGER'S 1000ML 1,000 ML IV SCH; -LIDO 2%/EPINEPHRINE 1:100000 20 ML VIAL INFIL ONE; -LIDOCAINE 4% MPF SOAK 5 ML = 1 DOSE TOP ONE; -LIDOCAINE HCL 2% 2 ML VIAL (20MG/ML) ONE; -LIDOCAINE HCL 4% TOP 50 ML VIAL EXT ONE; -MIDAZOLAM HCL 1 MG/ML 2ML VIAL ONE; -ONDANSETRON INJ 2 MG/ML 2 ML VIAL IV PRN; -ONDANSETRON INJ 2 MG/ML 2 ML VIAL ONE; -OXYCODONE/ACETAMINOPHEN 5-325 TAB PO PRN; -PROPOFOL IV EMULSION 10 MG/ML 20 ML VIAL IV ONE
== END 2018-01-02 13:05 | disposition left against medical advice (07) ==
LOC: C.EDB 12:42

== ENCOUNTER → 2018-01-28 | Outpatient (CLI) | payer OTHER ==
--- NOTE | 2018-01-28 13:57 | DIAGNOSTIC IMAGING REPORT ---
L HIP UNILATERAL 2 VIEWS CLINICAL HISTORY: PAIN IN LEFT HIP COMPARISON: None. DISCUSSION: No fractures or dislocations are visualized. There are no erosive or destructive changes. IMPRESSION: Unremarkable conventional radiographic evaluation of the left hip. Electronically signed by: Cassius Tran M.D. 01/28/2018 1:55 PM Dictated Date/Time: 01/28/2018 1:53 PM
== END | disposition home or self-care (01) ==
LOC: C.RADBC 13:31
PROVIDERS: ATTEND Family Medicine
DX: M25.552 Pain in left hip (principal)

== ENCOUNTER 2021-08-31 16:31 | Inpatient (IN) ==
[2021-08-31] MEDS ORDERED: ONDANSETRON INJ 2 MG/ML 2 ML VIAL IV STA ×2 (17:37→18:29)
[2021-08-31 17:49] LABS: Hematocrit (blood only) 45.7 % (37-47); Hemoglobin 15.3 g/dL (12.0-16.0); Mean Corpuscular Hemoglobin 32.6 pg (25-34); Mean Corpuscular Hgb Conc 33.5 g/dL (32-36); Mean Corpuscular Volume 97.2 fL (80-100); Mean Platelet Volume 12.2 fL (7.4-10.4); Platelet Count 180 K/uL (130-400); RDW Coefficient of Variation 14.7 % (11.5-14.5); RDW Standard Deviation 52.6 fL (36.4-46.3); White Blood Count 5.76 K/uL (4.8-10.8)
--- NOTE | 2021-08-31 18:06 | Emergency Department Note ---
Impression & Plan Biliary colic, Abdominal pain, Encounter for smoking cessation counseling, Sludge in gallbladder, Hypokalemia, Dilated cbd, acquired ED Provider Note NAME: JOANNA ALVARADO AGE: 51 SEX: F : 1970 ARRIVES VIA: Ambulance INFORMANT: Patient, ED PROVIDER(S): Torito King MD Chief Complaint: Abdominal pain HPI: Patient does present with concern for abdominal pain which began around noon today after eating a small no food. Patient does have a known history of gallstones and believes she is having a gallbladder attack. The patient did have an MRCP completed at [facility] toward the end of July which showed likely small gallstones with a borderline dilatated CBD but no evidence of any pericholecystic fluid or gallbladder wall edema. Patient was seen by Dr. George yesterday and was told that she likely would benefit from surgery as an elective procedure but that they would I be unable to schedule it as there is not availability for elective surgeries at this time. Patient had tried to take [id number] medication at home and did get some Zofran when she arrived now but still states that she feels nausea does have pains. Patient describes it is sharp and achy in the upper abdomen right upper quadrant area. Patient is a smoker but denies any alcohol use. No recent falls or trauma. Patient's pain is been constant since it began today. ROS: See HPI for pertinent positives and negatives. A total of 10 systems were reviewed and otherwise negative. Past medical history: See below Surgical history: See below Social history: See below Physical Exam: GENERAL: NAD, wearing a mask, non-toxic. EYE EXAM: Normal conjunctiva. PERRL, no anisocoria and EOM's grossly intact w/o pain. NECK: Supple, no nuchal rigidity, no adenopathy, non-tender. No signs of meningismus. LUNGS: Clear to auscultation. Normal chest wall mechanics. HEART: NSR, no MRG. ABDOMEN: Abdomen soft, epigastric and right upper quadrant pain, normo-active bowel sounds, no masses, no rebound or guarding. BACK: No CVA TTP. SKIN: No rashes and no bruising. UPPER EXTREMITIES: Upper extremities are grossly normal. LOWER EXTREMITIES: Grossly normal, no edema. NEURO EXAM: A&O x3, cranial nerves II-XII grossly intact, normal speech, moves all 4 extremities on command w/o issue. Differential diagnoses: Appendicitis, ovarian cyst, ovarian torsion, ectopic , TOA, PID, infections, diverticulitis, UTI, obstruction, mesenteric ischemia, aortic pathology, inflammatory bowel disease, renal colic, PUD, pa ncreatitis, biliary pathology, hernia, volvulus, constipation, as well as other pathologies. Course: Patient was seen and evaluated the bedside. Full history physical exam was performed. Imaging Studies: See Below Cardiac monitoring: An order was placed for continuous cardiac monitoring. The monitor shows a rate of 72 with sinus rhythm. MDM: Patient was seen due to concern for abdominal pain and likely biliary colic. Blood work was obtained along with a gallbladder ultrasound. The patient was treated symptomatically with pain and nausea medication. Patient has normal white count H&H and platelet count. Kidney function is unremarkable. Very mild hypokalemia. Patient was counseled on her smoking cessation. Gallbladder ultrasound does show biliary sludge but no signs of acute cholecystitis. The patient was discussed with the on-call general surgeon Dr. Maria and the patient will be admitted for likely cholecystectomy tomorrow. I counseled patient on smoking cessation for 3 minutes. Treatment options discussed and resources provided. Patient was receptive. Past Med/Surg History Medical History Anemia (~05/2009) Anxiety Najera's palsy Chronic back pain Cluster headaches Depression Drug-seeking behavior Emphysema lung no inhalers/nebulizer Fistula Gastrojejunal ulcer Hypercholesterolemia IBS (irritable bowel syndrome) Internal hemorrhoids Internal hernia Lymphoma pt states "they are just watching it" Narcotic dependency, continuous Panic disorder (10/18/12) Peptic anastomotic ulcer PSVT (paroxysmal supraventricular tachycardia) had ablation [place] Andrews syndrome (geniculate herpes zoster) patient denies Toxic encephalopathy (11/05/14) patient denies Trigeminal neuralgia Vitamin B12 deficiency Surgical History H/O section x2 History of x2 History of cardiac radiofrequency ablation d/t svt @ [facility] with Dr. Valdez History of colonoscopy (01/2016) with polypectomy History of endoscopy (07/2017) History of esophagogastroduodenoscopy (EGD) History of hernia surgery x2 History of lumpectomy of left breast precancerous tumor History of removal of Port-a-Cath (06/29/21) Removal of Right Access Port Dr. García 06/29/21 History of tonsillectomy History of tooth extraction all teeth--have implants History of vascular access device infusaport Hx of gastric bypass x2 S/P sinus surgery S/P tooth extraction Family History Father , age 70 of an [place] Myocardial infarction Mother , age 59 of cancer Cancer Aunt Family history of diabetes mellitus Brother Family hx colonic polyps Other Diabetes Emphysema, unspecified No family history of adverse response to anesthesia No pertinent family history Social History Smoking Status: Current every day smoker Tobacco Type: Cigarettes packs per day: 1; Years Smoked: 30; Cigarettes Per Day: 15-17 per day; Second Hand Exposure: No; Hx Alcohol Use: No Hx Substance Use: No Preferred Language: Nepali Communication Ability: Effective Visual Impairment: No Limitations 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 Beliefs That Will Affect Care: None marital status: Current Living Situation: Spouse Current Living Situation Comment: Lives with and 3 kids current occupational status: unemployed other: 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 [employer] Feels Safe at Home: Yes Assistive Devices: Glasses Allergies Allergies Allergy/AdvReac Type Severity Reaction Status Date / Time butorphanol AdvReac Mild blisters Verified 08/30/21 13:26 and red eyes isometheptene-apap dichloral AdvReac Mild stomach Uncoded 08/30/21 13:26 pain Home Meds Home Medications Medication Instructions Recorded Confirmed rosuvastatin 20 mg tablet 20 mg PO HS 08/10/18 08/31/21 trazodone 100 mg tablet 50 mg PO HS 08/10/18 08/31/21 fluticasone propionate 50 2 spray INTRANASAL DAILY PRN 05/30/19 08/31/21 mcg/actuation nasal spray,suspension (Flonase Allergy Relief) tramadol 50 mg tablet 50 mg PO Q8H PRN 04/30/20 08/31/21 Rebamipide 100 mg PO BID 05/31/20 08/31/21 Trimebutine 100 mg PO BID PRN 05/31/20 08/31/21 alprazolam 0.5 mg tablet 0.5 mg PO TID 10/31/20 08/31/21 fluticasone 100 mcg-salmeterol 50 1 inh INHALATION BID 05/30/21 08/31/21 mcg/dose blistr powdr for inhalation (Advair Diskus) quetiapine 100 mg tablet 50 mg PO HS tab 06/01/21 08/31/21 linaclotide 145 mcg capsule 145 mcg PO QAM 06/30/21 08/31/21 (Linzess) oxcarbazepine 300 mg tablet 300 mg PO HS 06/30/21 08/31/21 dicyclomine 20 mg tablet 0 mg PO DAILY 07/14/21 08/31/21 escitalopram oxalate 10 mg tablet 10 mg PO DAILY 08/06/21 08/31/21 ursodiol 300 mg capsule 300 mg PO DAILY 08/31/21 08/31/21 Previous Rx's Medication Instructions Recorded albuterol sulfate 90 mcg/actuation 2 puff INHALATION Q6H PRN #18 g 06/02/20 aerosol inhaler sumatriptan succinate 100 mg 100 mg PO .COMPLEX PRN #9 tab 06/27/21 tablet (Imitrex) topiramate 100 mg tablet 100 mg PO .COMPLEX #270 tab 06/27/21 rabeprazole 20 mg tablet,delayed 20 mg PO BID #180 tab 06/28/21 release potassium chloride 20 mEq 20 meq PO DAILY #5 tab 08/07/21 tablet,extended release Results & Data (ED) Vital Signs Vital Signs - 24 hr 08/31/21 16:34 08/31/21 18:54 08/31/21 19:21 Pulse Rate 74 Pulse Rate [Apical] 62 55 L Respiratory Rate 18 17 12 Respiratory Effort / Characteristics Non-Labored Spontaneous Non-Labored Spontaneous Respiratory Depth Normal Normal Blood Pressure 147/88 H Blood Pressure [Left Arm] 148/84 H 150/79 H Blood Pressure Mean 107 Blood Pressure Mean [Left Arm] 105 102 Pulse Oximetry 100 100 99 Oxygen Delivery Method Room Air Room Air Room Air Sepsis Recent Fever Within 48 Hours No Sepsis New/Unexplained Change in Mental Status No Sepsis Action Taken by Nursing No Action Required Home Medications Current Medication List: was personally reviewed by me Laboratory Data Attestation: I reviewed the patient's lab results. Result diagrams: 08/31/21 17:41 08/31/21 17:41 Lab Results 08/31/21 08/31/21 08/31/21 Range/Units 17:41 17:41 19:19 WBC 5.76 (4.8-10.8) K/uL RBC 4.70 (4.2-5.4) M/uL Hgb 15.3 (12.0-16.0) g/dL Hct 45.7 (37-47) % MCV 97.2 (80-100) fL MCH 32.6 (25-34) pg MCHC 33.5 (32-36) g/dL RDW Std Deviation 52.6 H (36.4-46.3) fL RDW Coeff of Tobi 14.7 H (11.5-14.5) % Plt Count 180 (130-400) K/uL MPV 12.2 H (7.4-10.4) fL Immature Gran % (Auto) 0.2 % Neut % (Auto) 27.2 % Lymph % (Auto) 64.2 % [place] % (Auto) 6.8 % Eos % (Auto) 1.4 % Baso % (Auto) 0.2 % Neut # (Auto) 1.57 (1.4-6.5) K/uL Lymph # (Auto) 3.70 H (1.2-3.4) K/uL [place] # (Auto) 0.39 (0.11-0.59) K/uL Eos # (Auto) 0.08 (0-0.5) K/uL Baso # (Auto) 0.01 (0-0.2) K/uL Immature Gran # (Auto) 0.01 (0.00-0.02) K/uL Sodium 142 (136-145) mmol/L Potassium 3.4 L (3.5-5.1) mmol/L Chloride 111 H (98-107) mmol/L Carbon Dioxide 25 (21-32) mmol/L Anion Gap 6.0 (3-11) BUN 9 (7-18) mg/dl Creatinine 0.67 (0.6-1.2) mg/dl Est Cr Clr Drug Dosing Not Reportable Est GFR ( Amer) 117.1 ml/min Est GFR (Non-Af Amer) 101.1 ml/min BUN/Creatinine Ratio 13.4 (10-20) Glucose 88 (70-99) mg/dl Calcium 9.1 (8.5-10.1) mg/dl Total Bilirubin 0.4 (0.2-1) mg/dl AST 15 (15-37) U/L ALT 27 (12-78) Alkaline Phosphatase 61 (45-117) U/L Total Protein 7.6 (6.4-8.2) gm/dl Albumin 3.8 (3.4-5.0) gm/dl Globulin 3.8 (2.5-4.0) gm/dl Albumin/Globulin Ratio 1.0 (0.9-2) Lipase 92 (73-393) U/L SARS-CoV-2, RNA, NAAT NEGATIVE (NEGATIVE) Administered Medications Discontinued Medications Sodium Chloride (Nss 1000ml) 500 mls @ 999 mls/hr IV .Q31M ONE Stop: 08/31/21 18:59 Last Infusion: 08/31/21 19:21 Dose: 0 mls/hr Documented by: [id number] Admin: 08/31/21 18:49 Dose: 999 mls/hr Documented by: [id number] Morphine Sulfate (Morphine Sulfate 4 Mg/Ml 1 Ml Carp\\Vial) 4 mg IV NOW STA Stop: 08/31/21 18:30 Last Admin: 08/31/21 18:47 Dose: 4 mg Documented by: [id number] Ondansetron HCl (Ondansetron Inj 2 Mg/Ml 2 Ml Vial) 4 mg IV NOW STA Stop: 08/31/21 17:38 Last Admin: 08/31/21 17:41 Dose: 4 mg Documented by: [id number] Ondansetron HCl (Ondansetron Inj 2 Mg/Ml 2 Ml Vial) 4 mg IV NOW STA Stop: 08/31/21 18:30 Last Admin: 08/31/21 18:42 Dose: 4 mg Documented by: [id number] Imaging Data Radiologist's Impression: Gallbladder Ultrasound 08/31/21 18:06 US gallbladder HISTORY: 51 years-old Female ab pain; h/o gallstones acute right upper quadrant abdominal pain COMPARISON: CT abdomen and pelvis 08/06/2021 TECHNIQUE: Multiple real-time sonographic images of the abdominal right upper quadrant were obtained assessing grayscale appearance and color flow FINDINGS: The pancreas is mostly obscured by bowel gas. The liver is within normal limits. No hepatic mass identified. Trace gallbladder sludge. No cholelithiasis, gallbladder wall thickening or pericholecystic fluid. Sonographic Ye sign reported as negative. The common bile duct is mildly dilated at 1.2 cm. This previously measured approximately 9 mm on the comparison CT study. No obstructing biliary stone or lesion identified. The imaged right kidney is unremarkable without hydronephrosis. IMPRESSION: 1. Trace gallbladder sludge without cholelithiasis or sonographic evidence of acute cholecystitis. 2. Dilated common bile duct without obstructing stone or lesion identified. Correlate with serum bilirubin level. ACT 112: Negative or not required by law. The above report was generated using voice recognition software. It may contain grammatical, syntax or spelling errors. Electronically signed by: Elvin Walker M.D. 08/31/2021 6:55 PM Discharge Plan Visit Data Chief Complaint: Abdominal Pain Stated Complaint: AB PAIN ED Provider: Torito King Discharge Problem: Biliary colic, Abdominal pain, Encounter for smoking cessation counseling, Sludge in gallbladder, Hypokalemia, Dilated cbd, acquired Forms Stand Alone Forms: [employer] Prescriptions Prescriptions: No Action sumatriptan succinate [Imitrex] 100 mg tablet 100 mg PO .COMPLEX PRN (Reason: migraine headache) Qty: 9 RF: 3 topiramate 100 mg tablet 100 mg PO .COMPLEX Qty: 270 RF: 1 rabeprazole 20 mg tablet,delayed release (DR/EC) 20 mg PO BID Qty: 180 RF: 1 albuterol sulfate 90 mcg/actuation HFA aerosol inhaler 2 puff inhalation Q6H PRN (Reason: Shortness Of Breath Or Wheezing) Qty: 18 RF: 3 alprazolam 0.5 mg tablet 0.5 mg PO TID RF: 0 fluticasone propionate [Flonase Allergy Relief] 50 mcg/actuation [place],Suspension 2 spray INTRANASAL DAILY PRN (Reason: Nasal Congestion) RF: 0 Rebamipide 100 mg PO BID RF: 0 Trimebutine 100 mg PO BID PRN (Reason: Abdominal Pain) RF: 0 trazodone 100 mg tablet 50 mg PO HS RF: 0 rosuvastatin 20 mg tablet 20 mg PO HS RF: 0 quetiapine 100 mg tablet 50 mg PO HS RF: 0 tramadol 50 mg Tablet 50 mg PO Q8H PRN (Reason: Pain) RF: 0 fluticasone propion-salmeterol [Advair Diskus] 100-50 mcg/dose Blister With Device 1 inh INHALATION BID RF: 0 dicyclomine 20 mg tablet 0 mg PO DAILY RF: 0 ursodiol 300 mg capsule 300 mg PO DAILY RF: 0 oxcarbazepine 300 mg tablet 300 mg PO HS RF: 0 Linzess 145 mcg capsule 145 mcg PO QAM RF: 0 escitalopram oxalate 10 mg tablet 10 mg PO DAILY RF: 0 potassium chloride 20 mEq tablet extended release 20 meq PO DAILY Qty: 5 RF: 0 Referrals Referrals: Cal Valdes [Primary Care Provider] -
[2021-08-31 18:07] LABS: Alanine Aminotransferase 27 (12-78); Albumin Level 3.8 gm/dl (3.4-5.0); Aspartate Aminotransferase 15 U/L (15-37); BUN Creatinine Ratio 13.4 (10-20); Blood Urea Nitrogen 9 mg/dl (7-18); Calcium 9.1 mg/dl (8.5-10.1); Carbon Dioxide 25 mmol/L (21-32); Chloride 111 mmol/L (98-107); Est GFR (African American) 117.1 ml/min; Est GFR (Non-African American) 101.1 ml/min; Glucose 88 mg/dl (70-99); Lipase 92 U/L (73-393); Potassium 3.4 mmol/L (3.5-5.1); Sodium 142 mmol/L (136-145)
[2021-08-31 18:10] LABS: Alkaline Phosphatase 61 U/L (45-117); Bilirubin,Total 0.4 mg/dl (0.2-1); Globulin 3.8 gm/dl (2.5-4.0); Total Protein 7.6 gm/dl (6.4-8.2)
[2021-08-31] MEDS ORDERED: SODIUM CHLORIDE 0.9% 1000ML 500 ML IV ONE (18:29)
[2021-08-31] MEDS ORDERED: MoRPHine SULFATE 4 MG/ML 1 ML CARP\\VIAL IV STA (18:29)
[2021-08-31 18:37] LABS: Basophils # (auto) 0.01 K/uL (0-0.2); Basophils % (auto) 0.2 %; Eosinophils # (auto) 0.08 K/uL (0-0.5); Eosinophils % (auto) 1.4 %; Immature Granulocytes # (auto) 0.01 K/uL (0.00-0.02); Immature Granulocytes % (auto) 0.2 %; Lymphocytes % (auto) 64.2 %; Monocytes # (auto) 0.39 K/uL (0.11-0.59); Monocytes % (auto) 6.8 %; Neutrophils # (auto) 1.57 K/uL (1.4-6.5); Neutrophils % (auto) 27.2 %
--- NOTE | 2021-08-31 18:56 | Ultrasound Report ---
US gallbladder HISTORY: 51 years-old Female ab pain; h/o gallstones acute right upper quadrant abdominal pain COMPARISON: CT abdomen and pelvis 08/06/2021 TECHNIQUE: Multiple real-time sonographic images of the abdominal right upper quadrant were obtained assessing grayscale appearance and color flow FINDINGS: The pancreas is mostly obscured by bowel gas. The liver is within normal limits. No hepatic mass iden tified. Trace gallbladder sludge. No cholelithiasis, gallbladder wall thickening or pericholecystic f luid. Sonographic Ye sign reported as negative. The common bile duct is mildly dilated at 1.2 cm. This previously measured approximately 9 mm on the comparison CT study. No obstructing biliary stone or lesion identified. The imaged right kidney is unremarkable without hydronephrosis. IMPRESSION: 1. Trace gallbladder sludge without cholelithiasis or sonographic evidence of acute cholecystitis. 2. Dilated common bile duct without obstructing stone or lesion identified. Correlate with serum bili avitia level. ACT 112: Negative or not required by law. The above report was generated using voice recognition software. It may contain grammatical, syntax o r spelling errors. Electronically signed by: Elvni Walker M.D. 08/31/2021 6:55 PM
--- NOTE | 2021-08-31 19:52 | History & Physical Report ---
Date of Service August 31, 2021 Assessment & Plan (1) Cholelithiasis: Plan: Due to the patient's ongoing, persistent, and somewhat worsening symptoms will admit her to the hospital and proceed as follows: We will allow clear liquids up until midnight at which time she will be made n.p.o. except for medicines with a small sip of water Initiate antibiotics in the form of cefoxitin We will provide gentle hydration with IV fluids correcting electrolyte deficiencies We will repeat laboratories in the morning Analgesics will be provided Antiemetics will be provided Review of patient's records show that she did have a EKG on August 06 of this year that showed sinus bradycardia without any concerns of ischemic changes. Therefore we will not repeat an EKG Upon reviewing her records I could not find a chest x-ray within the past month so we will get a portable chest x-ray for preoperative reasons She has had a Covid test this admission which is noted be negative As the patient was tentatively being scheduled for cholecystectomy Dr. García in the future because of her ongoing symptoms we will plan on doing this tomorrow. I scheduled the patient for a laparoscopic, possible open cholecystectomy with intraoperative cholangiogram. We will utilize SCDs for DVT prevention, no chemical means due to planned surgery The patient will be a level 1 full code History of Present Illness Chief Complaint: Abdominal pain Primary Care Provider: Cal Valdes This is a 51-year-old female who is being followed by Dr. García for right upper quadrant and epigastric abdominal pain. Prior to seeing him the patient had undergone GI evaluation with an EGD on 07/25/2021. During the study the pa tient was noted to have a normal esophagus. Patient had a history of gastric surgery and the a fair and inferior limbs of the jejunum that were examined were noted to be normal. There is no evidence of peptic ulcer disease on the study. On the same day the patient had a colonoscopy where the colon examination was noted be normal other than a 3 mm polyp in the ascending colon that was removed. Patient underwent a gallbladder ultrasound on 08/06/2021 patient was noted to have echogenic material felt to be consistent with either small gallstones or sludge. There is no evidence of cholecystitis on this study. There is slight dilatation of the common bile duct. She had also undergone a CT scan of the abdomen and pelvis on this date that showed no acute process within the abdomen or pelvis. There is specifically no peripancreatic or pericholecystic inflammation or other evidence of acute cholecystitis. Patient did have labs on numerous occasions prior to her general surgery visit where she was not noted to have any elevation of her bilirubin, transaminases, alkaline phosphatase, or lipase. During her most recent general surgery visit on 08/30/2021 she was told that some of her abdominal symptomatology may be related to gallbladder dysfunction. And the patient was tentatively being set up for a cholecystectomy. Patient presented to the emergency department today secondary to right upper quadrant pain that has been occurring in and on and off fashion for the past several days. She notes that the pain radiates to her right shoulder and she has associated nausea without vomiting. She denies any fevers, shakes, chills. She denies any diarrhea. She does note that the pain seems to be worse after eating and she does not report any palliative factors. Today in the emergency department the patient had labs and imaging which independent reviewed. A gallbladder ultrasound showed trace gallbladder sludge without any evidence of cholelithiasis. There is no ultrasound evidence of acute cholecystitis. The common bile duct was noted to be dilated but no obstructing stones or lesions were noted. A CBC was performed that showed white blood cell count, hemoglobin, hematocrit, and platelet count were all within the normal range. A chemistry profile showed sodium was 142. Potassium was slightly low at 3.4. BUN and creatinine were noted to be within the normal ra nge. Patient's total bilirubin, transaminases, alkaline phosphatase, and lipase were all normal and nonelevated. A Covid test was performed and was noted to be negative. At the time of my interview the patient did have some right upper quadrant abdominal discomfort but was in no distress. She was noted to be afebrile and hemodynamically stable Allergies Allergy/AdvReac Type Severity Reaction Status Date / Time butorphanol AdvReac Mild blisters Verified 08/30/21 13:26 and red eyes dichloralphenazone AdvReac Mild stomach Verified 08/31/21 22:46 [From Midrin] pain isometheptene [From Midrin] AdvReac Mild stomach Verified 08/31/21 22:46 pain Home Medications Medication Instructions Recorded Confirmed Type rosuvastatin 20 mg tablet 20 mg PO HS 08/10/18 08/31/21 History trazodone 100 mg tablet 50 mg PO HS 08/10/18 08/31/21 History fluticasone propionate 50 2 spray INTRANASAL DAILY PRN 05/30/19 08/31/21 History mcg/actuation nasal spray,suspension (Flonase Allergy Relief) tramadol 50 mg tablet 50 mg PO Q8H PRN 04/30/20 08/31/21 History Rebamipide 100 mg PO BID 05/31/20 08/31/21 History Trimebutine 100 mg PO BID PRN 05/31/20 08/31/21 History albuterol sulfate 90 mcg/actuation 2 puff INHALATION Q6H PRN #18 g 06/02/20 08/31/21 Rx aerosol inhaler alprazolam 0.5 mg tablet 0.5 mg PO TID 10/31/20 08/31/21 History fluticasone 100 mcg-salmeterol 50 1 inh INHALATION BID 05/30/21 08/31/21 History mcg/dose blistr powdr for inhalation (Advair Diskus) quetiapine 100 mg tablet 50 mg PO HS tab 06/01/21 08/31/21 History sumatriptan succinate 100 mg 100 mg PO .COMPLEX PRN #9 tab 06/27/21 08/31/21 Rx tablet (Imitrex) topiramate 100 mg tablet 100 mg PO .COMPLEX #270 tab 06/27/21 08/31/21 Rx rabeprazole 20 mg tablet,delayed 20 mg PO BID #180 tab 06/28/21 08/31/21 Rx release linaclotide 145 mcg capsule 145 mcg PO QAM 06/30/21 08/31/21 History (Linzess) oxcarbazepine 300 mg tablet 300 mg PO HS 06/30/21 08/31/21 History dicyclomine 20 mg tablet 0 mg PO DAILY 07/14/21 08/31/21 History escitalopram oxalate 10 mg tablet 10 mg PO DAILY 08/06/21 08/31/21 History potassium chloride 20 mEq 20 meq PO DAILY #5 tab 08/07/21 08/31/21 Rx tablet,extended release ursodiol 300 mg capsule 300 mg PO DAILY 08/31/21 08/31/21 History Past Med/Surg History Medical History Anemia (~05/2009) Anxiety Najera's palsy Chronic back pain Cluster headaches Depression Drug-seeking behavior Emphysema lung no inhalers/nebulizer Fistula Gastrojejunal ulcer Hypercholesterolemia IBS (irritable bowel syndrome) Internal hemorrhoids Internal hernia Lymphoma pt states "they are just watching it" Narcotic dependency, continuous Panic disorder (10/18/12) Peptic anastomotic ulcer PSVT (paroxysmal supraventricular tachycardia) had ablation [place] Andrews syndrome (geniculate herpes zoster) patient denies Toxic encephalopathy (11/05/14) patient denies Trigeminal neuralgia Vitamin B12 deficiency Surgical History H/O section x2 History of x2 History of cardiac radiofrequency ablation d/t svt @ [facility] with Dr. Valdez History of colonoscopy (01/2016) with polypectomy History of endoscopy (07/2017) History of esophagogastroduodenoscopy (EGD) History of hernia surgery x2 History of lumpectomy of left breast precancerous tumor History of removal of Port-a-Cath (06/29/21) Removal of Right Access Port Dr. García 06/29/21 History of tonsillectomy History of tooth extraction all teeth--have implants History of vascular access device infusaport Hx of gastric bypass x2 S/P sinus surgery S/P tooth extraction Family History Father , age 70 of an [place] Myocardial infarction Mother , age 59 of cancer Cancer Aunt Family history of diabetes mellitus Brother Family hx colonic polyps Other Diabetes Emphysema, unspecified No family history of adverse response to anesthesia No pertinent family history Social History Smoking Status: Current every day smoker Tobacco Type: Cigarettes packs per day: 1; Years Smoked: 30; Cigarettes Per Day: 15; Second Hand Exposure: No; Do You Dip or Chew Tobacco: No; Tobacco Cessation Education Requested by Patient: No Hx Alcohol Use: No Hx Substance Use: No Preferred Language: Lithuanian Communication Ability: Effective Visual Impairment: No Limitations 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: No Beliefs That Will Affect Care: None marital status: Current Living Situation: Spouse Current Living Situation Comment: Lives with and 3 kids current occupational status: unemployed other: 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 [employer] Feels Safe at Home: Yes Safety Concerns: Feels Safe At This Time Assistive Devices: None Review of Systems Constitutional: no fever and no chills Eyes: no diplopia Ear, Nose, Mouth, Throat: no ear pain Respiratory: no cough and no dyspnea Cardiovascular: no chest pain Gastrointestinal: + abdominal pain and + nausea; no vomiting and no diarrhea/loose stools Genitourinary: no dysuria Musculoskeletal: no back pain Integumentary: no rash Neurologic: no localized weakness Physical Exam Constitutional: well developed and well nourished; no acute distress Eyes: + anicteric sclerae; no conjunctival abnormality ENMT: Ears: no hearing impairment and no external ear abnormality Neck: trachea midline Respiratory: normal respiratory effort, lungs clear to auscultation Cardiovascular: Rate/Rhythm: regular rate and regular rhythm Gastrointestinal (Abdomen): Abdomen is soft and nondistended. Bowel sounds are present. There is no rebound tenderness or guarding. The patient did have pain with palpation in the right upper quadrant. Musculoskeletal: No calf tenderness Skin: no rashes and no jaundice Neurologic: moves all extremities Psychiatric: Orientation: alert and oriented x 3 Affect: + anxious affect Results & Data Results & Data ([facility]) Vital Signs (Past 12 Hours) Vital Signs Pulse Pulse Resp BP BP Pulse Ox 08/31/21 19:21 55 L 12 150/79 H 99 08/31/21 18:54 62 17 148/84 H 100 08/31/21 16:34 74 18 147/88 H 100 Supervising Physician Co-Signing Physician Notes Patient seen and evaluated in the emergency room Feel the best plan is to keep the patient in the hospital and proceed with laparoscopic cholecystectomy and possible cholangiogram Patient and are satisfied with this plan PG Care Time/CCT Total # of Minutes Spent Total Time Spent with Patient: Total time spent is greater than 50% in coordination of care (as documented) at patient's floor/unit and/or counseling patient: Coding Level of Care Code 90399 Initial Inpt Care Lvl 3 Diagnoses Cholelithiasis K80.20
[2021-08-31] MEDS: POTASSIUM CHLORIDE 10 MEQ in LACTATED RINGER'S 1,000 ML IV SCH (21:28)
[2021-08-31] MEDS: cefOXitin 2,000 MG in DEXTROSE 5% 50 ML IV SCH (21:28)
--- NOTE | 2021-08-31 21:36 | XRay Report ---
XR chest 1V portable CLINICAL HISTORY: pre-op. Evaluate cardiopulmonary status COMPARISON STUDY: 05/19/2019 TECHNIQUE: 1 view of the chest FINDINGS: Single frontal view of the chest demonstrates the cardiomediastinal silhouette to be within normal li mits. The lungs are clear of alveolar opacities. There is no evidence for pleural effusion. There is no evidence for vascular congestion. There is no acute osseous pathology. IMPRESSION: No acute cardiopulmonary disease. ACT 112: Negative or not required by law. Electronically signed by: Luis Zapata M.D. 08/31/2021 9:34 PM
[2021-08-31] MEDS ORDERED: SUMAtriptan succinate 100 MG TAB PO PRN (21:55)
[2021-08-31] MEDS ORDERED: FLUTICASONE PROPIONATE NA SPR 16 GM BTL PRN (21:55)
[2021-08-31] MEDS ORDERED: ACETAMINOPHEN 1,000 MG/100 ML VIAL IV PRN (21:55)
[2021-08-31] MEDS ORDERED: ALBUTEROL HFA 8 GM INHALER INH PRN (21:55)
[2021-08-31] MEDS ORDERED: ONDANSETRON INJ 2 MG/ML 2 ML VIAL IV PRN (21:55)
[2021-08-31] MEDS: MoRPHine SULFATE 2 MG/ML CARP IV PRN (22:25)
[2021-08-31] MEDS: OXcarbazepine 150 MG TABLET PO SCH (22:57)
[2021-08-31] MEDS: ALPRAZolam 0.5 MG TABLET PO SCH (22:57)
[2021-08-31] MEDS: ROSUVASTATIN CALCIUM 20 MG TAB PO SCH (22:58)
[2021-08-31] MEDS: QUEtiapine FUMARATE 25 MG TABLET PO SCH (22:58)
[2021-08-31] MEDS: PANTOprazole 40 MG TAB PO SCH (22:58)
[2021-08-31] MEDS: traZODone HCL 50 MG TAB PO SCH (22:58)
[2021-08-31] MEDS: TOPIRAMATE 100 MG TAB PO SCH (22:58)
--- NOTE | 2021-08-31 22:58 | Consultation ---
Date of Consultation August 31, 2021 Assessment & Plan (1) Anxiety: 51 yo F w/ pMHx. of anxiety, depression, GERD, SPVT, trigeminal neuralgia, COPD, and current smoker who is presenting with abdominal pain Abdominal pain likely due to gallbladder pathology with plan for possible surgical intervention admitted by surgery and consulted by Dr. Maria for medical management - pain medication, fluids, diet and DVT prophylaxis per surgery -RCRI 1 point for intraperitoneal surgery and patient able to complete greater than 4 mets; thought to be appropriate risk for surgery - ordered lipid profile and A1c to further risk stratify Anxiety and depression, stable - continue home medications including: alprazolam, quetiapine, escitalopram and trazodone COPD, stable - continue home Albuterol as needed along with Breo Hypokalemia 3.4 potentially due to nausea and vomiting - k-rider ordered - Zofran as needed for nausea - recheck and replete as needed Hx. of PSVT s/p ablation without recurrence reassuring cardiac monitoring in May after she was seen by Cardiology - TSH in May wnl - EKG ordered Irritable bowel, stable - continue Linzess and dicyclomine Trigeminal neuralgica - continue oxcarbazepine Code: Full Diet: liquid, NPO after midnight DVT: SCD's (2) Encounter for pre-operative examination: (3) GERD (gastroesophageal reflux disease): (4) PSVT (paroxysmal supraventricular tachycardia): (5) Trigeminal neuralgia: (6) Depression: (7) COPD with emphysema: (8) Palpitation: Supervising Physician Co-Signing Physician Notes Patient seen and examined, chart reviewed, case discussed with Dr. Nelson and agree with his assessment and plan as documented above. In brief, patient is a 51-year-old female with persistent abdominal pain. She has been admitted to the surgical team with plans for cholecystectomy. Afebrile hemodynamically stable on exam. Nontoxic in appearance Skin-warm, well-perfused HEENTnormocephalic/atraumatic, pupils equal and reactive to light, moist mucous membranes Heart+ S1, S2, regular LungsCTA Abdomensome tenderness in the right upper quadrant without rebound, guarding, peritoneal sign Labs and images reviewed Assessment/plan: Per RCRI criteria patient is acceptable risk and is able to proceed to surgery with no additional testing Would consider home medications for anxiety and depression Albuterol as needed K repletion with repeat labs in the morning Remainder of plan as above History of Present Illness Requesting Physician: Dr. Maria Reason for Consultation: medical management Attending Physician: Lance Maria MD, [facility] History of Present Illness Paula Joaquin has a past medical history of anxiety, depression, GERD, PSVT, trigeminal neuralgia, and COPD. She presented with abdominal pain that was 10/10 and radiating to her back. She explained that she has had the abdominal pain for a long time and worse over the last month and over the last 2 weeks it has become intolerable. Outside of her abdominal pain she does not have any other concerns. She does admit to chronic palpitations and leg swelling. She did have a Holter in June that showed PVC's and PAC's with a burden of <1%. She has a prior history of SVT and took Sotalol initially but has not had a recurrence since she had an ablation. She explains that she alternates between constipation and diarrhea but currently does not have either and she attributes this to Linzess. Social Hx. current tobacco use 14-16 cigarettes per day with 30+ year smoking history denies alcohol or tobacco use Allergies Allergy/AdvReac Type Severity Reaction Status Date / Time butorphanol AdvReac Mild blisters Verified 08/30/21 13:26 and red eyes dichloralphenazone AdvReac Mild stomach Verified 08/31/21 22:46 [From Midrin] pain isometheptene [From Midrin] AdvReac Mild stomach Verified 08/31/21 22:46 pain Home Medications Medication Instructions Recorded Confirmed Type rosuvastatin 20 mg tablet 20 mg PO HS 08/10/18 08/31/21 History trazodone 100 mg tablet 50 mg PO HS 08/10/18 08/31/21 History fluticasone propionate 50 2 spray INTRANASAL DAILY PRN 05/30/19 08/31/21 History mcg/actuation nasal spray,suspension (Flonase Allergy Relief) tramadol 50 mg tablet 50 mg PO Q8H PRN 04/30/20 08/31/21 History Rebamipide 100 mg PO BID 05/31/20 08/31/21 History Trimebutine 100 mg PO BID PRN 05/31/20 08/31/21 History albuterol sulfate 90 mcg/actuation 2 puff INHALATION Q6H PRN #18 g 06/02/20 08/31/21 Rx aerosol inhaler alprazolam 0.5 mg tablet 0.5 mg PO TID 10/31/20 08/31/21 History fluticasone 100 mcg-salmeterol 50 1 inh INHALATION BID 05/30/21 08/31/21 History mcg/dose blistr powdr for inhalation (Advair Diskus) quetiapine 100 mg tablet 50 mg PO HS tab 06/01/21 08/31/21 History sumatriptan succinate 100 mg 100 mg PO .COMPLEX PRN #9 tab 06/27/21 08/31/21 Rx tablet (Imitrex) topiramate 100 mg tablet 100 mg PO .COMPLEX #270 tab 06/27/21 08/31/21 Rx rabeprazole 20 mg tablet,delayed 20 mg PO BID #180 tab 06/28/21 08/31/21 Rx release linaclotide 145 mcg capsule 145 mcg PO QAM 06/30/21 08/31/21 History (Linzess) oxcarbazepine 300 mg tablet 300 mg PO HS 06/30/21 08/31/21 History dicyclomine 20 mg tablet 0 mg PO DAILY 07/14/21 08/31/21 History escitalopram oxalate 10 mg tablet 10 mg PO DAILY 08/06/21 08/31/21 History potassium chloride 20 mEq 20 meq PO DAILY #5 tab 08/07/21 08/31/21 Rx tablet,extended release ursodiol 300 mg capsule 300 mg PO DAILY 08/31/21 08/31/21 History Patient History Medical History Anemia (~05/2009) Anxiety Najera's palsy Chronic back pain Cluster headaches Depression Drug-seeking behavior Emphysema lung no inhalers/nebulizer Fistula Gastrojejunal ulcer Hypercholesterolemia IBS (irritable bowel syndrome) Internal hemorrhoids Internal hernia Lymphoma pt states "they are just watching it" Narcotic dependency, continuous Panic disorder (10/18/12) Peptic anastomotic ulcer PSVT (paroxysmal supraventricular tachycardia) had ablation [place] 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 Valdez History of colonoscopy (01/2016) with polypectomy History of endoscopy (07/2017) History of esophagogastroduodenoscopy (EGD) History of hernia surgery x2 History of lumpectomy of left breast precancerous tumor History of removal of Port-a-Cath (06/29/21) Removal of Right Access Port Dr. García 06/29/21 History of tonsillectomy History of tooth extraction all teeth--have implants History of vascular access device infusaport Hx of gastric bypass x2 S/P sinus surgery S/P tooth extraction Family History Father , age 70 of an [place] Myocardial infarction Mother , age 59 of cancer Cancer Aunt Family history of diabetes mellitus Brother Family hx colonic polyps Other Diabetes Emphysema, unspecified No family history of adverse response to anesthesia No pertinent family history Social History Smoking Status: Current every day smoker Tobacco Type: Cigarettes packs per day: 1; Years Smoked: 30; Cigarettes Per Day: 15; Second Hand Exposure: No; Do You Dip or Chew Tobacco: No; Tobacco Cessation Education Requested by Patient: No Hx Alcohol Use: No Hx Substance Use: No Preferred Language: Bermudian Communication Ability: Effective Visual Impairment: No Limitations 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 Beliefs That Will Affect Care: None marital status: Current Living Situation: Spouse Current Living Situation Comment: Lives with and 3 kids current occupational status: unemployed 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 [employer] Feels Safe at Home: Yes Safety Concerns: Feels Safe At This Time Assistive Devices: None Review of Systems Review of Systems: Constitutional: denies fever, chills, weight loss admits nausea, vomiting, fatigue and chronic night sweats head: denies trauma, LOC, confusion, vision changes Neurologic: denies syncope, slurring of speech, focal weakness ENT: denies rhinorrhea, sore throat, epistaxis Cardiac: denies chest pain admits stable chronic palpitations and chronic leg swelling Pulm.: admit cough GI: denies diarrhea, constipation and blood in stool : denies urgency, dysuria admits chronic polyuria Physical Exam Constitutional: well developed and well nourished; no acute distress Eyes: PERRL, conjunctivae normal, anicteric sclerae ENMT: external ear and nose normal, oropharynx normal Neck: normal visual inspection Respiratory: normal respiratory effort, lungs clear to auscultation Cardiovascular: RRR, no murmur, no edema Chest (Breasts): normal inspection/palpation of breasts Gastrointestinal (Abdomen): - soft, no guarding, tender to palpation of the right upper quadrant Musculoskeletal: no cyanosis or clubbing, extremities motor strength 5/5 Skin: no rashes, warm and dry Neurologic: no focal motor deficits Psychiatric: A+Ox3, euthymic affect Results & Data ([facility]) Vital Signs (Past 12 Hours) Vital Signs Pulse Pulse Resp BP BP Pulse Ox 08/31/21 21:00 56 L 20 140/79 99 08/31/21 19:21 55 L 12 150/79 H 99 08/31/21 18:54 62 17 148/84 H 100 08/31/21 16:34 74 18 147/88 H 100
--- NOTE | 2021-09-01 00:34 | Billing Data ---
Date of Service August 31, 2021 Coding Level of Care Code 10980 Inpt Consult Level 3
[2021-09-01] MEDS: MoRPHine SULFATE 2 MG/ML CARP IV PRN ×6 (01:49→20:25)
[2021-09-01] MEDS: cefOXitin 2,000 MG in DEXTROSE 5% 50 ML IV SCH ×2 (04:23→10:20)
[2021-09-01 07:13] LABS: Hematocrit (blood only) 39.4 % (37-47); Hemoglobin 12.8 g/dL (12.0-16.0); Mean Corpuscular Hemoglobin 31.7 pg (25-34); Mean Corpuscular Hgb Conc 32.5 g/dL (32-36); Mean Corpuscular Volume 97.5 fL (80-100); Mean Platelet Volume 12.5 fL (7.4-10.4); Platelet Count 148 K/uL (130-400); RDW Coefficient of Variation 14.7 % (11.5-14.5); RDW Standard Deviation 52.9 fL (36.4-46.3); Red Blood Count 4.04 M/uL (4.2-5.4); White Blood Count 4.33 K/uL (4.8-10.8)
[2021-09-01 07:18] LABS: Albumin Level 2.8 gm/dl (3.4-5.0); BUN Creatinine Ratio 9.9 (10-20); Calcium 8.4 mg/dl (8.5-10.1); Creatinine Clr Calc Pharmacy 95.7 ml/min; Est GFR (African American) 117.1 ml/min; Est GFR (Non-African American) 101.1 ml/min; Potassium 3.9 mmol/L (3.5-5.1)
[2021-09-01 07:25] LABS: Bilirubin,Total 0.5 mg/dl (0.2-1); Globulin 2.7 gm/dl (2.5-4.0); Total Protein 5.5 gm/dl (6.4-8.2)
[2021-09-01 07:31] LABS: Estimated Average Glucose 117 mg/dl; Hemoglobin A1C 5.7 % (4.5-5.6)
[2021-09-01] MEDS ORDERED: BUPIVACAINE 0.5 % 5 MG/1 ML MPF 30ML VIAL ONE (07:50)
--- NOTE | 2021-09-01 07:57 | Hospitalist Progress Note ---
Date of Service September 01, 2021 Assessment & Plan (1) Abdominal pain: (2) Biliary colic: (3) Neutropenia: (4) Anxiety: (5) Depression: (6) COPD with emphysema: (7) PSVT (paroxysmal supraventricular tachycardia): (8) IBS (irritable bowel syndrome): (9) Trigeminal neuralgia: (10) GERD (gastroesophageal reflux disease): Plan: 51 yo F w/ pMHx. of anxiety, depression, GERD, SPVT, trigeminal neuralgia, COPD, and current smoker who is presenting with abdominal pain 1,2 Abdominal pain likely due to gallbladder pathology with plan for possible surgical intervention admitted by surgery and consulted by Dr. Maria for medical management - pain medication, fluids, diet and DVT prophylaxis per surgery -RCRI 1 point for intraperitoneal surgery and patient able to complete greater than 4 mets; thought to be appropriate risk for surgery - ordered lipid profile and A1c to further risk stratify 3. Neutropenia patient reports a history of follicular lymphoma followed by oncology Dr. Macias. no history of treatment followed on a yearly basis No past history of neutropenia noted on her prior CBCs All cell lines are otherwise normal Acute changes overnight, no change in meds be on Ancef which was added prior to surgery Certainly potential causes would include underlying infection, after discussion with surgery will continue as planned Manual diff ordered CBC after surgery Will discuss with Dr. Macias 4-5. Anxiety and depression, stable - continue home medications including: alprazolam, quetiapine, escitalopram and trazodone 6. COPD, stable - continue home Albuterol as needed along with Breo continue to monitor, patient completed prednisone outpatient the last 48 hours 7.Hx. of PSVT s/p ablation without recurrence reassuring cardiac monitoring in May after she was seen by Cardiology - [facility] in May wnl - EKG ordered 8. Irritable bowel, stable - continue Linzess and dicyclomine 9. Trigeminal neuralgica - continue oxcarbazepine 10. GERD Continue underlying treatment Continue Pantaprozole 40 bid 11. Hypokalemia Continue monitor resolved on a.m. labs Home patient regimen includes potassium chloride 20 mEq daily Code: Full Diet: liquid, NPO after midnight DVT: SCD's Admission and Anticipated Discharge Date Admission Date: August 31, 2021 Subjective patient continues report abdominal discomfort with mild nausea over the night. Scheduled for surgery this a.m. No new fevers chills Called to the floor due to decrease in neutrophils 750 No reported constipation or diarrhea Review of Systems Constitutional: no fever and no chills Respiratory: no cough, no chest congestion, no dyspnea and no wheezing Cardiovascular: no chest pain, no palpitations and no edema Gastrointestinal: + abdominal pain and + nausea; no heartburn, no vomiting and no change in bowel habits Neurologic: no gait abnormality, no falls and no headache(s) Physical Exam Physical Exam: Constitutional: WD/WN, vitals as above Respiratory: Effort normal, CTA B/L CV: RRR, no murmur, no edema Abdomen: normal bowel sounds, Right upper quadrant tenderness palpation along with generalized discomfort throughout Neurologic: resting in bed Skin no rashes Results & Data Results & Data ([facility]) Vital Signs (Past 12 Hours) Vital Signs Temp Pulse Pulse Resp BP Pulse Ox 09/01/21 07:36 36.8 C 56 L 12 132/76 99 08/31/21 23:50 36.6 C 55 L 20 141/82 H 100 08/31/21 21:55 36.6 C 55 L 20 141/82 H 100 08/31/21 21:00 56 L 20 140/79 99 Laboratory Results Laboratory Results - last 24 hr 08/31/21 08/31/21 08/31/21 17:41 17:41 19:19 WBC 5.76 RBC 4.70 Hgb 15.3 Hct 45.7 MCV 97.2 MCH 32.6 MCHC 33.5 RDW Std Deviation 52.6 H RDW Coeff of Tobi 14.7 H Plt Count 180 MPV 12.2 H Immature Gran % (Auto) 0.2 Neut % (Auto) 27.2 Lymph % (Auto) 64.2 Clinton % (Auto) 6.8 Eos % (Auto) 1.4 Baso % (Auto) 0.2 Neut # (Auto) 1.57 Lymph # (Auto) 3.70 H Clinton # (Auto) 0.39 Eos # (Auto) 0.08 Baso # (Auto) 0.01 Immature Gran # (Auto) 0.01 Sodium 142 Potassium 3.4 L Chloride 111 H Carbon Dioxide 25 Anion Gap 6.0 BUN 9 Creatinine 0.67 Est Cr Clr Drug Dosing Not Reportable Est GFR ( Amer) 117.1 Est GFR (Non-Af Amer) 101.1 BUN/Creatinine Ratio 13.4 Glucose 88 Estimat Average Glucose Hemoglobin A1c Calcium 9.1 Total Bilirubin 0.4 AST 15 ALT 27 Alkaline Phosphatase 61 Total Protein 7.6 Albumin 3.8 Globulin 3.8 Albumin/Globulin Ratio 1.0 Triglycerides Cholesterol LDL Cholesterol, Calc VLDL Cholesterol, Calc HDL Cholesterol Cholesterol/HDL Ratio Lipase 92 SARS-CoV-2, RNA, NAAT NEGATIVE 09/01/21 09/01/21 09/01/21 06:35 06:35 06:35 WBC 4.33 L RBC 4.04 L Hgb 12.8 Hct 39.4 MCV 97.5 MCH 31.7 MCHC 32.5 RDW Std Deviation 52.9 H RDW Coeff of Tobi 14.7 H Plt Count 148 MPV 12.5 H Immature Gran % (Auto) Neut % (Auto) Lymph % (Auto) Clinton % (Auto) Eos % (Auto) Baso % (Auto) Neut # (Auto) Lymph # (Auto) Clinton # (Auto) Eos # (Auto) Baso # (Auto) Immature Gran # (Auto) Sodium 147 H Potassium 3.9 Chloride 118 H Carbon Dioxide 26 Anion Gap 3.0 BUN 7 Creatinine 0.67 Est Cr Clr Drug Dosing 95.7 Est GFR ( Amer) 117.1 Est GFR (Non-Af Amer) 101.1 BUN/Creatinine Ratio 9.9 L Glucose 79 Estimat Average Glucose 117 Hemoglobin A1c 5.7 H Calcium 8.4 L Total Bilirubin 0.5 AST 9 L ALT 18 Alkaline Phosphatase 46 Total Protein 5.5 L D Albumin 2.8 L Globulin 2.7 Albumin/Globulin Ratio 1.0 Triglycerides 102 Cholesterol 162 LDL Cholesterol, Calc 65 VLDL Cholesterol, Calc 20 HDL Cholesterol 77 Cholesterol/HDL Ratio 2 Lipase 71 L SARS-CoV-2, RNA, NAAT 09/01/21 06:35 WBC RBC Hgb Hct MCV MCH MCHC RDW Std Deviation RDW Coeff of Tobi Plt Count MPV Immature Gran % (Auto) Neut % (Auto) Lymph % (Auto) Clinton % (Auto) Eos % (Auto) Baso % (Auto) Neut # (Auto) Lymph # (Auto) Clinton # (Auto) Eos # (Auto) Baso # (Auto) Immature Gran # (Auto) Sodium Potassium Chloride Carbon Dioxide Anion Gap BUN Creatinine Est Cr Clr Drug Dosing Est GFR ( Amer) Est GFR (Non-Af Amer) BUN/Creatinine Ratio Glucose Estimat Average Glucose Hemoglobin A1c Calcium Total Bilirubin AST ALT Alkaline Phosphatase Total Protein Albumin Globulin Albumin/Globulin Ratio Triglycerides Cancelled Cholesterol Cancelled LDL Cholesterol, Calc Cancelled VLDL Cholesterol, Calc Cancelled HDL Cholesterol Cancelled Cholesterol/HDL Ratio Cancelled Lipase SARS-CoV-2, RNA, NAAT Diagnostic Findings Gallbladder Ultrasound 08/31/21 18:06 US gallbladder HISTORY: 51 years-old Female ab pain; h/o gallstones acute right upper quadrant abdominal pain COMPARISON: CT abdomen and pelvis 08/06/2021 TECHNIQUE: Multiple real-time sonographic images of the abdominal right upper quadrant were obtained assessing grayscale appearance and color flow FINDINGS: The pancreas is mostly obscured by bowel gas. The liver is within normal limits. No hepatic mass identified. Trace gallbladder sludge. No cholelithiasis, gallbladder wall thickening or pericholecystic fluid. Sonographic Ye sign reported as negative. The common bile duct is mildly dilated at 1.2 cm. This previously measured approximately 9 mm on the comparison CT study. No obstructing biliary stone or lesion identified. The imaged right kidney is unremarkable without hydronephrosis. IMPRESSION: 1. Trace gallbladder sludge without cholelithiasis or sonographic evidence of acute cholecystitis. 2. Dilated common bile duct without obstructing stone or lesion identified. Correlate with serum bilirubin level. ACT 112: Negative or not required by law. The above report was generated using voice recognition software. It may contain grammatical, syntax or spelling errors. Electronically signed by: Elvin Walker M.D. 08/31/2021 6:55 PM Chest X-Ray 08/31/21 20:23 XR chest 1V portable CLINICAL HISTORY: pre-op. Evaluate cardiopulmonary status COMPARISON STUDY: 05/19/2019 TECHNIQUE: 1 view of the chest FINDINGS: Single frontal view of the chest demonstrates the cardiomediastinal silhouette to be within normal limits. The lungs are clear of alveolar opacities. There is no evidence for pleural effusion. There is no evidence for vascular congestion. There is no acute osseous pathology. IMPRESSION: No acute cardiopulmonary disease. ACT 112: Negative or not required by law. Electronically signed by: Luis Zapata M.D. 08/31/2021 9:34 PM PG Care Time/CCT Total # of Minutes Spent Total Time Spent with Patient: Total time spent is greater than 50% in coordination of care (as documented) at patient's floor/unit and/or counseling patient: Coding Level of Care Code 32835 Subseq Hosp Care Lvl 3 Diagnoses Biliary colic K80.50 Abdominal pain R10.11 Abdominal location: right upper quadrant Anxiety F41.9 Depression F32.9 COPD with emphysema J43.9 PSVT (paroxysmal supraventricular tachycardia) I47.1 IBS (irritable bowel syndrome) K58.9 Trigeminal neuralgia G50.0 GERD (gastroesophageal reflux disease) K21.9 Neutropenia D70.9 (1) Abdominal pain Abdominal location: right upper quadrant Qualified Code(s): R10.11 - Right upper quadrant pain
--- NOTE | 2021-09-01 08:04 | Anesthesiology Consultation ---
Date of Service September 01, 2021 Assessment & Plan (1) Encounter for pre-operative examination: Chart Review Chart Review: Acceptable Risk for Surgery History Surgery Operation Date: 09/01/21 08:10 Proposed Procedures p Laparoscopic Cholecystectomy with Cholangiogram - Lance Maria MD, FACS Height/Weight Height: 5 ft 4 in Weight: 72.3 kg Allergies Allergy/AdvReac Type Severity Reaction Status Date / Time butorphanol AdvReac Mild blisters Verified 08/30/21 13:26 and red eyes dichloralphenazone AdvReac Mild stomach Verified 08/31/21 22:46 [From Midrin] pain isometheptene [From Midrin] AdvReac Mild stomach Verified 08/31/21 22:46 pain Medications Home Medications Medication Instructions Recorded Confirmed Last Taken rosuvastatin 20 mg tablet 20 mg PO HS 08/10/18 08/31/21 07/24/21 trazodone 100 mg tablet 50 mg PO HS 08/10/18 08/31/21 07/24/21 fluticasone propionate 50 2 spray INTRANASAL DAILY PRN 05/30/19 08/31/21 mcg/actuation nasal spray,suspension (Flonase Allergy Relief) tramadol 50 mg tablet 50 mg PO Q8H PRN 04/30/20 08/31/21 07/25/21 Rebamipide 100 mg PO BID 05/31/20 08/31/21 07/24/21 Trimebutine 100 mg PO BID PRN 05/31/20 08/31/21 07/25/21 albuterol sulfate 90 mcg/actuation 2 puff INHALATION Q6H PRN #18 g 06/02/20 08/31/21 07/24/21 aerosol inhaler alprazolam 0.5 mg tablet 0.5 mg PO TID 10/31/20 08/31/21 07/25/21 fluticasone 100 mcg-salmeterol 50 1 inh INHALATION BID 05/30/21 08/31/21 07/24/21 mcg/dose blistr powdr for inhalation (Advair Diskus) quetiapine 100 mg tablet 50 mg PO HS tab 06/01/21 08/31/21 07/24/21 sumatriptan succinate 100 mg 100 mg PO .COMPLEX PRN #9 tab 06/27/21 08/31/21 Unknown tablet (Imitrex) topiramate 100 mg tablet 100 mg PO .COMPLEX #270 tab 06/27/21 08/31/21 07/24/21 rabeprazole 20 mg tablet,delayed 20 mg PO BID #180 tab 06/28/21 08/31/21 07/24/21 release linaclotide 145 mcg capsule 145 mcg PO QAM 06/30/21 08/31/21 07/24/21 (Linzess) oxcarbazepine 300 mg tablet 300 mg PO HS 06/30/21 08/31/21 07/24/21 dicyclomine 20 mg tablet 0 mg PO DAILY 07/14/21 08/31/21 07/24/21 escitalopram oxalate 10 mg tablet 10 mg PO DAILY 08/06/21 08/31/21 Unknown potassium chloride 20 mEq 20 meq PO DAILY #5 tab 08/07/21 08/31/21 Unknown tablet,extended release ursodiol 300 mg capsule 300 mg PO DAILY 08/31/21 08/31/21 Unknown Active Medications Generic Name Dose Route Start Last Admin Trade Name Freq PRN Reason Stop Dose Admin Alprazolam 0.5 mg 08/31/21 21:55 08/31/21 22:57 Alprazolam 0.5 Mg Tablet PO 09/30/21 21:54 0.5 mg TID QUINN Administration Cefoxitin Sodium 2,000 mg/ 60 mls @ 100 mls/hr 08/31/21 20:30 09/01/21 05:05 Dextrose IV 09/10/21 20:29 Infused Q6H QUINN Infusion Potassium Chloride 10 meq/ 1,005 mls @ 75 mls/hr 08/31/21 20:30 08/31/21 21:28 Lactated Ringer's IV 09/30/21 20:29 75 mls/hr .[id number] QUINN Administration Morphine Sulfate 2 mg 08/31/21 21:55 09/01/21 07:03 Morphine Sulfate 2 Mg/Ml Carp IV 09/14/21 21:54 2 mg Q3H PRN Administration Pain Oxcarbazepine 300 mg 08/31/21 21:55 08/31/21 22:57 Oxcarbazepine 150 Mg Tablet PO 09/30/21 21:54 300 mg HS QUINN Administration Pantoprazole Sodium 40 mg 08/31/21 22:45 08/31/21 22:58 Pantoprazole 40 Mg Tab PO 09/30/21 22:44 40 mg BID QUINN Administration Quetiapine Fumarate 50 mg 08/31/21 21:55 08/31/21 22:58 Quetiapine Fumarate 25 Mg Tablet PO 09/30/21 21:54 50 mg HS QUINN Administration Rosuvastatin Calcium 20 mg 08/31/21 21:55 08/31/21 22:58 Rosuvastatin Calcium 20 Mg Tab PO 09/30/21 21:54 20 mg HS QUINN Administration Topiramate 200 mg 08/31/21 22:45 08/31/21 22:58 Topiramate 100 Mg Tab PO 09/30/21 22:44 200 mg HS QUINN Administration Trazodone HCl 50 mg 08/31/21 21:55 08/31/21 22:58 Trazodone Hcl 50 Mg Tab PO 09/30/21 21:54 50 mg HS QUINN Administration NPO Date Last Intake of Fluids: 08/31/21 Time Last Intake of Fluids: 23:59 Last Intake of Fluids Comment: broth Date Last Intake of Solids: 08/31/21 Time Last Intake of Solids: 07:00 Past Medical History Medical History Anemia (~05/2009) Anxiety Najera's palsy Chronic back pain Cluster headaches Depression Drug-seeking behavior Emphysema lung no inhalers/nebulizer Fistula Gastrojejunal ulcer Hypercholesterolemia IBS (irritable bowel syndrome) Internal hemorrhoids Internal hernia Lymphoma pt states "they are just watching it" Narcotic dependency, continuous Panic disorder (10/18/12) Peptic anastomotic ulcer PSVT (paroxysmal supraventricular tachycardia) had ablation Silvana Andrews syndrome (geniculate herpes zoster) patient denies Toxic encephalopathy (11/05/14) patient denies Trigeminal neuralgia Vitamin B12 deficiency Past Family History Family History Father , age 70 of an [place] Myocardial infarction Mother , age 59 of cancer Cancer Aunt Family history of diabetes mellitus Brother Family hx colonic polyps Other Diabetes Emphysema, unspecified No family history of adverse response to anesthesia No pertinent family history Past Surgical History Surgical History H/O section x2 History of x2 History of cardiac radiofrequency ablation d/t svt @ [facility] with Dr. Valdez History of colonoscopy (01/2016) with polypectomy History of endoscopy (07/2017) History of esophagogastroduodenoscopy (EGD) History of hernia surgery x2 History of lumpectomy of left breast precancerous tumor History of removal of Port-a-Cath (06/29/21) Removal of Right Access Port Dr. García 06/29/21 History of tonsillectomy History of tooth extraction all teeth--have implants History of vascular access device infusaport Hx of gastric bypass x2 S/P sinus surgery S/P tooth extraction Social History Smoking Status: Current every day smoker tobacco type: cigarettes Smoking cigarettes per day: 15 Do You Dip or Chew Tobacco: No Hx Alcohol Use: No Hx Substance Use: No substance use type: does not use Physical Exam Vital Signs Last Vital Signs Temp 36.8 C 09/01/21 07:36 Pulse 56 L 09/01/21 07:36 Resp 12 09/01/21 07:36 BP 132/76 09/01/21 07:36 Pulse Ox 99 09/01/21 07:36 Testing Laboratory Results 09/01/21 06:35 09/01/21 06:35 Hemoglobin A1c 5.7 % (4.5-5.6) H 09/01/21 06:35 Electrocardiogram Date: 09/01/21 Findings: + SB @ (47) Chest X-Ray Date: 08/31/21 Findings: + NAD
[2021-09-01 08:07] LABS: Basophils # (auto) 0.02 K/uL (0-0.2); Basophils % (auto) 0.5 %; Eosinophils # (auto) 0.13 K/uL (0-0.5); Immature Granulocytes # (auto) 0.01 K/uL (0.00-0.02); Immature Granulocytes % (auto) 0.2 %; Lymphocytes # (auto) 2.85 K/uL (1.2-3.4); Lymphocytes % (auto) 65.8 %; Monocytes # (auto) 0.57 K/uL (0.11-0.59); Monocytes % (auto) 13.2 %; Neutrophils # (auto) 0.75 K/uL (1.4-6.5); Neutrophils % (auto) 17.3 %
[2021-09-01] MEDS: FLUTICASONE/VILANTEROL 100/25MCG 14 PUFFS/INHALER INH SCH (09:20)
[2021-09-01] MEDS: ALPRAZolam 0.5 MG TABLET PO SCH ×3 (09:35→20:41)
[2021-09-01 10:27] LABS: White Blood Count 4.33 K/uL (4.8-10.8)
[2021-09-01 10:42] LABS: ALC (manual) 3.33 K/uL (1.2-3.4); ANC (manual) 0.56 K/uL (1.4-6.5); Basophils # (manual) 0.07 K/uL (0-0.2); Basophils % (manual) 1.7 %; Eosinophils # (manual) 0.15 K/uL (0-0.5); Eosinophils % (manual) 3.4 %; Lymphocytes # (manual) 3.33 K/uL (1.2-3.4); Lymphocytes % (manual) 76.8 %; Monocytes # (manual) 0.23 K/uL (0.11-0.59); Monocytes % (manual) 5.2 %; Neutrophils # (manual) 0.56 K/uL (1.4-6.5); Neutrophils % (manual) 12.9 %
[2021-09-01] MEDS ORDERED: GLYCOPYRROLATE 0.2 MG/ML VIAL ONE (12:38)
[2021-09-01] MEDS ORDERED: PROPOFOL IV EMULSION 10 MG/ML 20 ML VIAL IV ONE (12:38)
[2021-09-01] MEDS ORDERED: ONDANSETRON INJ 2 MG/ML 2 ML VIAL ONE (12:38)
[2021-09-01] MEDS ORDERED: fentaNYL citrate 100 MCG/2 ML VIAL ONE (12:38)
[2021-09-01] MEDS ORDERED: NEOSTIGMINE METHYLSULFATE 1 MG/ML 10ML VIAL ONE (12:38)
[2021-09-01] MEDS ORDERED: DEXAMETHASONE SOD INJ 4 MG/ML VIAL ONE (12:38)
[2021-09-01] MEDS ORDERED: LIDOCAINE 2% 2 ML VIAL/AMP(20MG/ML) INFIL ONE (12:38)
[2021-09-01] MEDS ORDERED: MIDAZOLAM HCL 1 MG/ML 2ML VIAL ONE (12:38)
[2021-09-01] MEDS ORDERED: ONDANSETRON INJ 2 MG/ML 2 ML VIAL IV PRN ×2 (13:01→14:38)
[2021-09-01] MEDS ORDERED: ATROPINE SULFATE 0.1 MG/ML 10ML SYR IV PRN (13:01)
[2021-09-01] MEDS ORDERED: ePHEDrine sulfate 50 MG/ML AMP IV PRN (13:01)
[2021-09-01] MEDS ORDERED: SCOPOLAMINE 1 MG TDSY TD ONE (13:09)
[2021-09-01 13:35] LABS: Pregnancy Test, Serum Negative (Negative)
[2021-09-01] MEDS ORDERED: OPTIRAY 300 IV PRN (14:16)
--- NOTE | 2021-09-01 14:37 | Post Operative Brief Note ---
PG Immediate Post Op with CF Date of Surgery September 01, 2021 Pre & Post Diagnosis Operation Date: 09/01/21 08:10 Pre-Op Diagnosis: biliary colic Post-Op Diagnosis: biliary colic, chronic cholecystitis I identified the patient and participated in the time-out.: Yes Procedure Operation Date: 09/01/21 08:10 Actual Procedures p Laparoscopic Cholecystectomy - Lance Maria MD, FACS Surgeon Lance Maria MD, FACS Flight Controls Engineer Nurses Estimated Blood Loss 10 Findings Consistent with Post-Op Diagnosis Mild scar tissue of the alysa hepatis Specimens Specimen Description: A. gallbladder
[2021-09-01] MEDS ORDERED: HYDROmorphone INJ 0.5 MG/0.5 ML SYR IV PRN ×2 (14:38)
[2021-09-01] MEDS ORDERED: HYDROCODONE/ACETAMOPHEN 5/325MG TAB PO PRN ×2 (14:38)
[2021-09-01] MEDS ORDERED: IBUPROFEN 600 MG TAB PO PRN (14:38)
[2021-09-01] MEDS ORDERED: PROMETHAZINE HCL 12.5 MG in SODIUM CHLORIDE 0.9% 50 ML IV PRN (14:38)
[2021-09-01] MEDS ORDERED: PROMETHAZINE HCL 25 MG in SODIUM CHLORIDE 0.9% 50 ML IV PRN (14:38)
[2021-09-01] MEDS ORDERED: ACETAMINOPHEN 325 MG TAB PO PRN (14:38)
[2021-09-01] MEDS ORDERED: SODIUM CHLORIDE 0.9% 1000ML 1,000 ML IV SCH (14:45)
[2021-09-01] MEDS ORDERED: ACETAMINOPHEN 1,000 MG/100 ML VIAL IV ONE (14:45)
[2021-09-01] MEDS ORDERED: ROCURONIUM BROMIDE 10 MG/ML 5 ML VIAL IV ONE (14:49)
[2021-09-01] MEDS: fentaNYL citrate 100 MCG/2 ML VIAL IV PRN ×2 (14:58→15:03)
--- NOTE | 2021-09-01 15:03 | Operative Report (OR) ---
DATE OF OPERATION: 09/01/2021. NAME OF OPERATION: Laparoscopic cholecystectomy. PREOPERATIVE DIAGNOSIS: Biliary colic. POSTOPERATIVE DIAGNOSES: Biliary colic with chronic cholecystitis. STAFF SURGEON: Lance Maria MD. EXTRUDING DEPARTMENT SUPERVISOR: Nurses. ANESTHESIA: General. DESCRIPTION OF PROCEDURE: The patient was brought in the operating room and placed on the operating table in supine position. Her abdomen was prepped and draped in the usual fashion. She had previous gastric bypass surgery. 0.5% plain Marcaine was used to anesthetize skin and subcutaneous tissue ab ove the umbilicus. Incision made, carried dissection down to the fascia, placing a Veress needle. T here was some scar tissue from previous abdominoplasty. Pneumoperitoneum was produced, 11 mm port kenney alyssa at this level and under visualization, three 5 mm ports were placed, one cephalad and two lateral ly. The patient placed in reverse Trendelenburg position. Gallbladder was grasped and retracted. There was scar tissue at the alysa hepatis. Dissection was ca rried out identifying the cystic duct, which was very tiny. It was clipped and transected. Cystic a rtery identified, clipped and transected and the gallbladder dissected away from the liver bed in the usual fashion. Placed it in an Endobag. After appropriate hemostasis and irrigation, the Endobag wa s removed through the umbilical site. All ports were then removed. Fascia at the umbilicus closed u sing interrupted 0 Vicryl suture. The skin was reapproximated using subcuticular 4-0 Monocryl with D ermabond. The patient was transferred to recovery room in stable condition. Job ID: [id number]
--- NOTE | 2021-09-01 15:22 | Anesthesiology Progress Note ---
Date of Service September 01, 2021 Anesthesia Post Procedure Vital Signs Vital Signs: Temp Pulse Pulse Pulse Resp BP BP 09/01/21 15:15 36.2 C L 54 L 16 101/60 09/01/21 15:05 53 L 14 124/61 09/01/21 14:55 53 L 14 125/61 09/01/21 14:45 36.1 C L 55 L 14 148/69 H 09/01/21 13:04 37.2 C 56 L 14 141/71 H 09/01/21 07:36 36.8 C 56 L 12 132/76 08/31/21 23:50 36.6 C 55 L 20 141/82 H 08/31/21 21:55 36.6 C 55 L 20 141/82 H 08/31/21 21:00 56 L 20 140/79 08/31/21 19:21 55 L 12 150/79 H 08/31/21 18:54 62 17 148/84 H 08/31/21 16:34 74 18 147/88 H Pulse Ox 09/01/21 15:15 100 09/01/21 15:05 100 09/01/21 14:55 100 09/01/21 14:45 100 09/01/21 13:04 99 09/01/21 07:36 99 08/31/21 23:50 100 08/31/21 21:55 100 08/31/21 21:00 99 08/31/21 19:21 99 08/31/21 18:54 100 08/31/21 16:34 100 Pain Intensity Abdomen: Pain Intensity: 8 Transfer of Care Handoff Completed per policy Notes Mental Status: alert / awake / arousable and participated in evaluation Patient Amnestic to Procedure: Yes Nausea / Vomiting: adequately controlled Pain: adequately controlled Airway Patency, RR, SpO2: stable & adequate BP & HR: stable & adequate Hydration State: stable & adequate Anesthetic Complications: no major complications apparent and Pt Satisfied with anesthetic care
[2021-09-01] MEDS: PANTOprazole 40 MG TAB PO SCH ×2 (16:56→20:40)
[2021-09-01] MEDS: LINACLOTIDE 145 MCG CAPSULE PO SCH (17:23)
[2021-09-01] MEDS: ESCITALOPRAM OXALATE 10 MG TAB PO SCH (17:23)
[2021-09-01] MEDS: DICYCLOMINE HCL 20 MG TAB PO SCH (17:23)
[2021-09-01] MEDS: ursodioL 300 MG CAP PO SCH (17:23)
[2021-09-01] MEDS: TOPIRAMATE 100 MG TAB PO SCH ×2 (17:24→20:40)
[2021-09-01] MEDS: CHECK SCOPOLAMINE PATCH PLACEMENT SCH ×2 (17:27→22:55)
[2021-09-01] MEDS: POTASSIUM CHLORIDE 10 MEQ in LACTATED RINGER'S 1,000 ML IV SCH (17:41)
[2021-09-01] MEDS: traZODone HCL 50 MG TAB PO SCH (20:41)
[2021-09-01] MEDS: ROSUVASTATIN CALCIUM 20 MG TAB PO SCH (21:08)
[2021-09-01] MEDS: OXcarbazepine 150 MG TABLET PO SCH (21:08)
[2021-09-01] MEDS: QUEtiapine FUMARATE 25 MG TABLET PO SCH (21:09)
--- NOTE | 2021-09-01 22:36 | Electrocardiogram Report ---
Test Reason : Blood Pressure : / mmHG Vent. Rate : 047 BPM Atrial Rate : 047 BPM P-R Int : 164 ms QRS Dur : 096 ms QT Int : 472 ms P-R-T Axes : 067 064 066 degrees QTc Int : 417 ms Sinus bradycardia Otherwise normal ECG When compared with ECG of 06-AUG-2021 19:47, No significant change was found Confirmed by Teo Valdez ([id number]) on 09/01/2021 10:35:51 PM Referred By: REFERRED SELF Confirmed By:Teo Valdez
[2021-09-02] MEDS: MoRPHine SULFATE 2 MG/ML CARP IV PRN (01:05)
[2021-09-02 07:05] LABS: Eosinophils # (auto) 0.01 K/uL (0-0.5); Eosinophils % (auto) 0.1 %; Hematocrit (blood only) 39.2 % (37-47); Hemoglobin 12.6 g/dL (12.0-16.0); Immature Granulocytes # (auto) 0.01 K/uL (0.00-0.02); Immature Granulocytes % (auto) 0.1 %; Lymphocytes # (auto) 1.99 K/uL (1.2-3.4); Lymphocytes % (auto) 25.2 %; Mean Corpuscular Hemoglobin 31.6 pg (25-34); Mean Corpuscular Hgb Conc 32.1 g/dL (32-36); Mean Corpuscular Volume 98.2 fL (80-100); Mean Platelet Volume 12.3 fL (7.4-10.4); Monocytes # (auto) 0.68 K/uL (0.11-0.59); Monocytes % (auto) 8.6 %; Platelet Count 143 K/uL (130-400); RDW Coefficient of Variation 14.8 % (11.5-14.5); RDW Standard Deviation 53.6 fL (36.4-46.3); Red Blood Count 3.99 M/uL (4.2-5.4); White Blood Count 7.89 K/uL (4.8-10.8)
[2021-09-02 07:30] LABS: Albumin Level 2.8 gm/dl (3.4-5.0); BUN Creatinine Ratio 11.2 (10-20); Calcium 8.5 mg/dl (8.5-10.1); Creatinine Clr Calc Pharmacy 112.5 ml/min; Est GFR (African American) 123.5 ml/min; Est GFR (Non-African American) 106.6 ml/min; Potassium 3.7 mmol/L (3.5-5.1)
[2021-09-02 07:32] LABS: Bilirubin,Total 0.4 mg/dl (0.2-1); Globulin 2.7 gm/dl (2.5-4.0); Total Protein 5.5 gm/dl (6.4-8.2)
[2021-09-02] MEDS: ursodioL 300 MG CAP PO SCH (07:46)
[2021-09-02] MEDS: CHECK SCOPOLAMINE PATCH PLACEMENT SCH (07:48)
[2021-09-02] MEDS: DICYCLOMINE HCL 20 MG TAB PO SCH (07:48)
[2021-09-02] MEDS: FLUTICASONE/VILANTEROL 100/25MCG 14 PUFFS/INHALER INH SCH (07:49)
[2021-09-02] MEDS: ESCITALOPRAM OXALATE 10 MG TAB PO SCH (07:49)
[2021-09-02] MEDS: LINACLOTIDE 145 MCG CAPSULE PO SCH (07:50)
[2021-09-02] MEDS: PANTOprazole 40 MG TAB PO SCH (07:51)
[2021-09-02] MEDS ORDERED: HEPARIN SOD 5,000 UNIT/0.5 ML VIAL SQ SCH (09:00)
[2021-09-02] MEDS: ALPRAZolam 0.5 MG TABLET PO SCH (10:00)
[2021-09-02] MEDS: TOPIRAMATE 100 MG TAB PO SCH (10:00)
--- NOTE | 2021-09-02 12:33 | Surgery Progress Note ---
Date of Service September 02, 2021 Assessment & Plan (1) Biliary colic: Plan: POD#1 lap nito Patient feeling well, pain manageable Incisions c/d/i Tolerating a diet Plan for discharge to home today Travelling to [place] in the New year. Can call office with any questions/concerns Admission and Anticipated Discharge Date Admission Date: August 31, 2021 Supervising Physician Co-Signing Physician Notes Patient seen and examined, agree with above. Status post laparoscopic cholecystectomy, feeling much better, tolerating diet, plan to discharge to home today. Subjective Patient feeling well. Has some R sided pain and into the shoulder, but is tolerable. Tolerating a diet. Eager for discharge. Physical Exam Physical Exam: awake/alert Gastrointestinal (Abdomen): Inspection/Auscultation: + abdominal surgical incision (c/d/i); abdomen not distended Percussion/Palpation: + abdomen tender (some mild chante-incisional ttp) and abdomen soft Results & Data ([facility]) Vital Signs (Past 12 Hours) Vital Signs Temp Pulse Resp BP BP Pulse Ox 09/02/21 11:03 36.9 C 57 L 16 101/59 L 100/58 L 97 09/02/21 07:42 36.9 C 57 L 16 100/58 L 97 09/02/21 04:08 36.7 C 51 L 16 99/48 L 98 PG Care Time/CCT Total # of Minutes Spent Total Time Spent with Patient: Total time spent is greater than 50% in coordination of care (as documented) at patient's floor/unit and/or counseling patient: Coding Level of Care Code None Diagnoses Biliary colic K80.50
--- NOTE | 2021-09-04 09:41 | Discharge Summary (DS) ---
DATE OF ADMISSION: 08/31/2021 DATE OF DISCHARGE: 09/02/2021 PRINCIPAL DIAGNOSIS: Severe biliary colic with chronic cholecystitis. PROCEDURE: The patient underwent laparoscopic cholecystectomy. HISTORY OF PRESENT ILLNESS: The patient is a 51-year-old female presenting to the Emergency Room wit h what appeared to be acute abdominal pain from biliary colic. The patient was taken to the operating room on 09/01/2021 where she underwent laparoscopic cholecystectomy, which she tolerated very well s howing evidence of chronic cholecystitis. The patient did well overnight and was felt stable for dis charge home on 09/02/2021 to be followed in the surgical clinic within 1-2 weeks. Job ID: [id number]
== END 2021-09-02 11:21 | disposition home or self-care (01) | DRG 419 ==
LOC: ED 16:31 → SUATTDRO 20:23 → 3E 20:23